=== PATIENT | male | born 1935 | race Caucasian/White ===

== ENCOUNTER 2016-08-25 21:08 | Inpatient (IN) | payer OTHER, MEDICARE ==
[~2016-08-25] VITALS: Ht 165.1 cm; Wt 60.8 kg
[2016-08-25] VITALS (11 sets, daily range): BP systolic 75–105; BP diastolic 51–65; PULSE 106–124; RESP 15–16; TEMP 97.3; O2SAT 100
[~2016-08-25 21:08] MED LIST: ALBU0.08 NEB; ASPI81CH PO; CHOL1CAP6 PO; COQ-100C2 PO; IPRASOL INH; LEVO150T7 PO; LISI2.5T3 PO; MULT-6 PO; PRED20 PO; ROSU5 PO; TAMS0.4C4 PO; THEO PO; THEO200T9 PO; TIOT1AER INH; VENTAER INH
[2016-08-25] MEDS ORDERED: SODIUM CHLORIDE 0.9% FLUSH 5 ML FLUSH IVF PRN (21:15)
[2016-08-25] MEDS ORDERED: SODIUM CHLOR 0.9% 1000 ML INJ 1,000 ML IV ONE (21:15)
[2016-08-25] MEDS ORDERED: methylPREDNISolone SOD SUCC 125 MG/2 ML VIAL IVP ONE (21:15)
--- NOTE | 2016-08-25 21:29 | PD ---
HPI Chief Complaint: shortness of breath, intubated Time Seen by Provider: 21:15 Travel History International Travel<30 days: No Contact w/Intl Traveler<30days: No Traveled to known affect area: No History of Present Illness HPI 89-year-old male with history of COPD, CHF, presents to the ER brought in by EMS , initially had called EMS for shortness of breath, and he was noted to be in significant respiratory distress, saturations in the 87% range, and considering how she was struggling, EMS had intubated him for respiratory distress. 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) Anxiety: Yes (panic attacks) Depression: Yes Heart Rhythm Problems: No Cancer: No Cardiac Catheterization: Yes Cardiovascular Problems: Yes (CHF) High Cholesterol: Yes Congestive Heart Failure: Yes COPD: Yes Diabetes: No Diminished Hearing: Yes (HARD OF HEARING) Endocrine: Yes Genitourinary: No Hypertension: Yes Immune Disorder: No Insomnia: Yes Musculoskeletal: Yes Neurologic: Yes Reproductive: No Respiratory: Yes (COPD) Migraines: Yes (with halos from processed foods (nitrates)) Thyroid Disease: Yes Triglycerides - High: Yes Past Surgical History Abdominal Surgery: No Body Medical Devices: heart stent Cardiac Surgery: Yes (stent) Coronary Artery Bypass Graft: Yes Ear Surgery: No Endocrine Surgery: No Genitourinary Surgery: No Gynecologic Surgery: No Neurologic Surgery: No Oral Surgery: No Thoracic Surgery: No Other Surgery: Yes (VEIN STRIPPING RT ) Social History Alcohol Use: Yes (OCC) Tobacco Use: No (QUIT 1994) Substance Use: No Allergies-Medications (Allergen,Severity, Reaction): Coded Allergies: No Known Allergies (Unverified , 07/29/16) Reported Meds & Prescriptions Reported Meds & Active Scripts Active Prednisone 20 Mg Tab 20 Mg PO BID Albuterol Neb (Albuterol Sulfate) 2.5 Mg/3 Ml Neb 2.5 Mg NEB Q4HR NEB PRN Reported Centrum (Multiple Vitamins W/ Minerals) 1 Tab 1 Tab PO DAILY Vitamin D-3 (Cholecalciferol) 1,000 Unit Cap 1 Tab PO DAILY Aspirin 81 Mg Chew 81 Mg CHEW DAILY Coq-10 (Coenzyme Q10 (Ubidecarenone)) 100 Mg Cap 1 Tab PO DAILY Theophylline ER 12 HR (Theophylline) 450 Mg Tab 400 Mg PO HS Theophylline ER 12 HR (Theophylline) 200 Mg Tab 200 Mg PO AC BREAKFAST Duoneb (Ipratropium-Albuterol Neb) 0.5-2.5 Mg/3 Ml Neb 1 Nebule INH Q6HR NEB Crestor (Rosuvastatin Calcium) 5 Mg Tab 5 Mg PO DAILY Lisinopril 2.5 Mg Tab 2.5 Mg PO DAILY Tamsulosin (Tamsulosin HCl) 0.4 Mg Cap 0.4 Mg PO HS Levothyroxine (Levothyroxine Sodium) 150 Mcg Tab 150 Mcg PO DAILY Stiolto Respimat Inh (Tiotropium-Olodaterol Inh) 2.5-2.5 Mcg/Act Aero 2 Puff INH DAILY Ventolin Hfa 18 GM Inh (Albuterol Sulfate) 90 Mcg/Act Aer 2 Puff INH Q4H PRN Review of Systems Except as stated in HPI: all other systems reviewed are Neg Physical Exam Narrative GENERAL: Well-nourished, well-developed elderly white male patient who is intubated. SKIN: Warm and dry. HEAD: Normocephalic. EYES: No scleral icterus. No injection or drainage. Pupils are pinpoint, round , equal, poorly reactive to light bilaterally. NECK: trachea midline. CARDIOVASCULAR: Fast and regular with no rubs or murmurs gallops. RESPIRATORY: Breath sounds decreased throughout bilaterally, more decreased on the left compared to the right. No wheezes or crackles. GASTROINTESTINAL: Abdomen soft, non-tender, nondistended. MUSCULOSKELETAL: No cyanosis. Trace pitting edema bilaterally. BACK: Nontender without obvious deformity. No CVA tenderness. Data Data Last Documented VS Vital Signs Date Time Temp Pulse Resp B/P Pulse Ox O2 Delivery O2 Flow Rate FiO2 08/25/16 22:29 108 16 90/56 100 45 08/25/16 21:30 97.3 Orders Complete Blood Count With Diff (08/25/16 21:15) Comprehensive Metabolic Panel (08/25/16 21:15) B-Type Natriuretic Peptide (08/25/16 21:15) Act Partial Throm Time (Ptt) (08/25/16 21:15) Prothrombin Time / Inr (Pt) (08/25/16 21:15) Ckmb (Isoenzyme) Profile (08/25/16 21:15) Troponin I (08/25/16 21:15) Arterial Blood Gas (Abg) (08/25/16 21:15) Urinalysis - C+S If Indicated (08/25/16 21:15) Influenzae A/B Antigen (08/25/16 21:15) Blood Culture (08/25/16 21:15) Iv Access Insert/Monitor (08/25/16 21:15) Electrocardiogram (08/25/16 21:15) Ecg Monitoring (08/25/16 21:15) Oximetry (08/25/16 21:15) Oxygen Administration (08/25/16 21:15) Chest, Single Ap (08/25/16 21:15) Urinary Catheter Insert/Apply (08/25/16 21:15) Sodium Chloride 0.9% Flush (Ns Flush) (08/25/16 21:15) Methylprednisolone So Succ Inj (Solumedr (08/25/16 21:15) Albuterol-Ipratropium Neb (Duoneb Neb) (08/25/16 21:15) Sodium Chlor 0.9% 1000 Ml Inj (Ns 1000 M (08/25/16 21:15) Electrocardiogram (08/25/16 19:58) Albuterol-Ipratropium Neb (Duoneb Neb) (08/25/16 21:45) CKMB (08/25/16 21:10) CKMB% (08/25/16 21:10) Restraints Non-Violent KARYN.Q3H (08/25/16 22:38) Admit Order (Ed Use Only) (08/25/16 22:50) Labs Laboratory Tests Test 08/25/16 08/25/16 08/25/16 21:10 21:29 21:45 White Blood Count 7.4 TH/MM3 Red Blood Count 3.62 MIL/MM3 Hemoglobin 11.0 GM/DL Hematocrit 34.1 % Mean Corpuscular Volume 94.2 FL Mean Corpuscular Hemoglobin 30.5 PG Mean Corpuscular Hemoglobin 32.4 % Concent Red Cell Distribution Width 14.5 % Platelet Count 142 TH/MM3 Mean Platelet Volume 7.4 FL Neutrophils (%) (Auto) 50.8 % Lymphocytes (%) (Auto) 33.9 % Monocytes (%) (Auto) 10.8 % Eosinophils (%) (Auto) 4.0 % Basophils (%) (Auto) 0.5 % Neutrophils # (Auto) 3.8 TH/MM3 Lymphocytes # (Auto) 2.5 TH/MM3 Monocytes # (Auto) 0.8 TH/MM3 Eosinophils # (Auto) 0.3 TH/MM3 Basophils # (Auto) 0.0 TH/MM3 CBC Comment DIFF FINAL Differential Comment Prothrombin Time 9.4 SEC Prothromb Time International 0.9 RATIO Ratio Activated Partial 22.4 SEC Thromboplast Time Sodium Level 136 MEQ/L Potassium Level 5.9 MEQ/L Chloride Level 90 MEQ/L Carbon Dioxide Level 41.7 MEQ/L Anion Gap 4 MEQ/L Blood Urea Nitrogen 30 MG/DL Creatinine 0.88 MG/DL Estimat Glomerular Filtration 84 ML/MIN Rate Random Glucose 135 MG/DL Calcium Level 8.0 MG/DL Total Bilirubin 0.3 MG/DL Aspartate Amino Transf 43 U/L (AST/SGOT) Alanine Aminotransferase 32 U/L (ALT/SGPT) Alkaline Phosphatase 72 U/L Total Creatine Kinase 109 U/L Creatine Kinase MB 1.4 NG/ML Troponin I 0.02 NG/ML B-Type Natriuretic Peptide 39 PG/ML Total Protein 6.1 GM/DL Albumin 2.9 GM/DL Blood Gas Puncture Site RT RADIAL Blood Gas Patient Temperature 98.6 Blood Gas HCO3 43 mmol/L Blood Gas Base Excess 15.6 mmol/L Blood Gas Oxygen Saturation 95 % Arterial Blood pH 7.24 Arterial Blood Partial 106 mmHg Pressure CO2 Arterial Blood Partial 363 mmHG Pressure O2 Arterial Blood Oxygen Content 16.1 Vol % Arterial Blood 1.8 % Carboxyhemoglobin Arterial Blood Methemoglobin 2.3 % Blood Gas Hemoglobin 11.4 G/DL Oxygen Delivery Device VENTILATOR Blood Gas Ventilator Setting AC/16/450/PEEP5 Blood Gas Inspired Oxygen 100 % Urine Color YELLOW Urine Turbidity CLEAR Urine pH 6.0 Urine Specific [place] 1.017 Urine Protein 30 mg/dL Urine Glucose (UA) NEG mg/dL Urine Ketones NEG mg/dL Urine Occult Blood NEG Urine Nitrite NEG Urine Bilirubin NEG Urine Urobilinogen LESS THAN 2.0 MG/DL Urine Leukocyte Esterase NEG Urine RBC 3 /hpf Urine WBC 1 /hpf Urine Squamous Epithelial 1 /hpf Cells Urine Hyaline Casts 46 /lpf Microscopic Urinalysis Comment CULT NOT INDICATED MDM Medical Decision Making Medical Screen Exam Complete: Yes Emergency Medical Condition: Yes Medical Record Reviewed: Yes Interpretation(s) EKG shows sinus tachycardia at a rate of [address] elevations or depressions compared to previous EKG on record. Laboratory Tests Test 08/25/16 08/25/16 08/25/16 21:10 21:29 21:45 Red Blood Count 3.62 MIL/MM3 (4.50-5.90) Hemoglobin 11.0 GM/DL (13.0-17.0) Hematocrit 34.1 % (39.0-51.0) Platelet Count 142 TH/MM3 (150-450) Monocytes (%) (Auto) 10.8 % (0.0-8.0) Prothrombin Time 9.4 SEC (9.8-11.6) Activated Partial 22.4 SEC Thromboplast Time (24.3-30.1) Potassium Level 5.9 MEQ/L (3.5-5.1) Chloride Level 90 MEQ/L (98-107) Carbon Dioxide Level 41.7 MEQ/L (21.0-32.0) Anion Gap 4 MEQ/L (5-15) Blood Urea Nitrogen 30 MG/DL (7-18) Estimat Glomerular Filtration 84 ML/MIN (>89) Rate Random Glucose 135 MG/DL (74-106) Calcium Level 8.0 MG/DL (8.5-10.1) Aspartate Amino Transf 43 U/L (15-37) (AST/SGOT) Total Protein 6.1 GM/DL (6.4-8.2) Albumin 2.9 GM/DL (3.4-5.0) Blood Gas HCO3 43 mmol/L (22-26) Blood Gas Base Excess 15.6 mmol/L (-2-2) Arterial Blood pH 7.24 (7.380-7.420) Arterial Blood Partial 106 mmHg Pressure CO2 (38-42) Arterial Blood Partial 363 mmHG Pressure O2 (61-120) Arterial Blood Methemoglobin 2.3 % (0-2) Blood Gas Hemoglobin 11.4 G/DL (12.0-16.0) Urine Protein 30 mg/dL (NEG-TRACE) Last 24 hours Impressions Chest X-Ray 08/25/16 2976 Signed Impressions: Service Date/Time: Thursday, August 25, 2016 21:36 - CONCLUSION: Endotracheal tube in satisfactory position. Emphysema without focal lung disease Murray Dunbar MD Differential Diagnosis Shortness of breath, intubatedCOPD exacerbation versus pneumonia versus CHF Narrative Course Chest x-ray did not show any signs of acute pneumonia or other acute pulmonary processes. ET tube is in place. Lab work otherwise not significantly reveal any signs of acute metabolic issues. At this point, patient was given Solu- Medrol and DuoNeb's in the ER. My plan would be to admit the patient for further evaluation and treatment. Case was discussed with Dr. Moses for admission to ICU. Critical Care Narrative Aggregate critical care time was 35 minutes. Time to perform other separately billable procedures was not included in the critical care time. My time did not include minutes spent treating any other patients simultaneously or on activities that did not directly contribute to the patient's treatment. The services I provided to this patient were to treat and/or prevent clinically significant deterioration that could result in: Worsening risk. Distress, respiratory failure, cardiopulmonary arrest, I provided critical care services requiring my management, as noted below: Chart data review, documentation time, medication orders and management, vital sign assessments/reviewing monitor data, ordering and reviewing lab tests, ordering and interpreting/reviewing x-rays and diagnostic studies, care of the patient and discussion of the patient with the admitting physicians. Diagnosis Primary Impression: COPD with exacerbation Additional Impression: Endotracheally intubated Admitting Information Admitting Physician Requests: it Brooklynn Dee MD Aug 25, 2016 21:29
[2016-08-25 21:38] LABS: BLOOD GAS BASE EXCESS 15.6 mmol/L (-2-2); BLOOD GAS CARBOXYHEMOGLOBIN 1.8 % (0-4); BLOOD GAS HCO3 43 mmol/L (22-26); BLOOD GAS METHEMOGLOBIN 2.3 % (0-2); BLOOD GAS O2 HGB SATURATION 95 % (90-100); BLOOD GAS OXYGEN CONTENT 16.1 Vol % (12.0-20.0); BLOOD GAS PCO2 106 mmHg (38-42); BLOOD GAS PO2 363 mmHG (61-120); BLOOD GAS TOTAL HGB 11.4 G/DL (12.0-16.0); TEMP CORR TO 98.6
[2016-08-25 21:39] LABS: CRITICAL VALUE YES; DRAW SITE RT RADIAL; FIO2 100 %; NUMBER OF ARTERIAL PUNCTURES 2; OXYGEN DEVICE VENTILATOR; STAT YES; ULNAR PULSE PRESENT; VENT SETTINGS AC/16/450/PEEP5
[2016-08-25 21:46] LABS: AUTOMATED NEUTROPHIL # 3.8 TH/MM3 (1.8-7.7); BASOPHIL % 0.5 % (0.0-2.0); EOSINOPHIL # 0.3 TH/MM3 (0-0.4); HEMATOCRIT 34.1 % (39.0-51.0); HEMO FLAGS DIFF FINAL; LYMPH % 33.9 % (9.0-44.0); LYMPHOCYTE # 2.5 TH/MM3 (1.0-4.8); MEAN CELL VOLUME 94.2 FL (80.0-100.0); MEAN CORPUSCULAR HEMOGLOBIN 30.5 PG (27.0-34.0); MEAN CORPUSCULAR HGB CONC 32.4 % (32.0-36.0); MONO % 10.8 % (0.0-8.0); NEUT % 50.8 % (16.0-70.0); PLATELET COUNT 142 TH/MM3 (150-450); RED BLOOD COUNT 3.62 MIL/MM3 (4.50-5.90); RED CELL DISTRIBUTION WIDTH 14.5 % (11.6-17.2); WHITE BLOOD COUNT 7.4 TH/MM3 (4.0-11.0)
[2016-08-25] MEDS: RESP: ALBUTEROL 2.5 MG/IPRATROPIUM 0.5 MG NEB (SCH) INH ×3 (21:46→22:20)
--- NOTE | 2016-08-25 21:55 | RADRPT ---
EXAM DATE/TIME: 08/25/2016 21:36 [facility] COMPARISON: CHEST SINGLE AP, July 29, 2016, 16:00. INDICATIONS : Shortness of breath. Post intubation. MEDICAL HISTORY : Chronic obstructive pulmonary disease. Emphysema. Myocardial infarction. CHF. SURGICAL HISTORY : Cardiac stent. ENCOUNTER: Initial ACUITY: 1 day PAIN SCORE: Non-responsive. LOCATION: Bilateral chest FINDINGS: Endotracheal tube is present in satisfactory position with tip 4-5 cm above the rebecca. The lungs are hyperinflated but focally clear. Cardiac contours are grossly satisfactory for technique and project ion. CONCLUSION: Endotracheal tube in satisfactory position. Emphysema without focal lung disease Murray Dunbar MD on August 25, 2016 at 21:52 Board Certified Radiologist. This report was verified electronically.
[2016-08-25 21:58] LABS: APTT (PATIENT) 22.4 SEC (24.3-30.1); INTERNATIONAL NORMALIZED RATIO 0.9 RATIO; PROTHROMBIN TIME - PATIENT 9.4 SEC (9.8-11.6)
[2016-08-25 22:32] LABS: ALKALINE PHOSPHATASE 72 U/L (45-117); ALT (GPT) 32 U/L (12-78); ANION GAP 4 MEQ/L (5-15); AST (GOT) 43 U/L (15-37); BICARBONATE 41.7 MEQ/L (21.0-32.0); BLOOD UREA NITROGEN 30 MG/DL (7-18); CHLORIDE 90 MEQ/L (98-107); GLOMERULAR FILTRATION RATE 84 ML/MIN (>89); SODIUM (NA) 136 MEQ/L (136-145); TOTAL BILIRUBIN ADULT 0.3 MG/DL (0.2-1.0)
[2016-08-25 22:33] LABS: CREATINE KINASE 109 U/L (39-308); POTASSIUM 5.9 MEQ/L (3.5-5.1)
[2016-08-25 22:45] LABS: CKMB 1.4 NG/ML (0.5-3.6)
[2016-08-25 23:35] LABS: BLOOD GAS BASE EXCESS 14.9 mmol/L (-2-2); BLOOD GAS HCO3 41 mmol/L (22-26); BLOOD GAS O2 HGB SATURATION 95 % (90-100); BLOOD GAS OXYGEN CONTENT 14.7 Vol % (12.0-20.0); BLOOD GAS PCO2 72 mmHg (38-42); BLOOD GAS PO2 188 mmHG (61-120); BLOOD GAS TOTAL HGB 10.7 G/DL (12.0-16.0); TEMP CORR TO 98.6
[2016-08-25 23:36] LABS: CRITICAL VALUE YES; DRAW SITE RT RADIAL; FIO2 45 %; NUMBER OF ARTERIAL PUNCTURES 1; OXYGEN DEVICE VENTILATOR; STAT YES; ULNAR PULSE PRESENT; VENT SETTINGS AC/16/500/PEEP5
[2016-08-26] VITALS (22 sets, daily range): BP systolic 87–124; BP diastolic 51–76; PULSE 86–114; RESP 16–23; TEMP 97.8–100.8; O2SAT 96–100
[2016-08-26] MEDS ORDERED: PROPOFOL 500 MG/50 ML BTL IV ONE
[2016-08-26 00:10] LABS: BLOOD, URINE NEG (NEG); COMMENT (UR) CULT NOT INDICATED; CULTURE IF INDICATED CULT NOT INDICATED; GLUCOSE,URINE NEG (NEG); HYALINE CAST, URINE 46 /lpf (RARE); KETONE, URINE NEG (NEG); NITRITE,URINE NEG (NEG); SQUAMOUS EPITHELIAL CELL URINE 1 /hpf (0-5); URINE COLOR YELLOW (YELLW/STRAW)
[2016-08-26] MEDS ORDERED: NOREPINEPHRINE INJ 4 MG in SODIUM CHLOR 0.9% 250 ML INJ 246 ML IV SCH (00:30)
[2016-08-26] MEDS ORDERED: ONDANSETRON HCL 4 MG/2 ML VIAL IV PRN (00:30)
[2016-08-26] MEDS ORDERED: TERBUTALINE INJ 1 MG/ML AMP SQ PRN (00:30)
[2016-08-26] MEDS ORDERED: MISCELLANEOUS NURSING INFORMATION XX SCH (00:30)
[2016-08-26] MEDS ORDERED: ACETAMINOPHEN 325 MG TAB PO PRN (00:30)
[2016-08-26] MEDS ORDERED: CHLORHEXIDINE GLUCONATE 2 % 1 PACK (2 CLOTHS) TOP PRN (00:30)
[2016-08-26] MEDS ORDERED: MORPHINE SULFATE 4 MG/ML INJ IV PRN (00:30)
[2016-08-26] MEDS ORDERED: SODIUM CHLORIDE 0.9% FLUSH 5 ML FLUSH IV FLUSH PRN (00:30)
[2016-08-26] MEDS ORDERED: RESP: ALBUTEROL 2.5 MG/IPRATROPIUM 0.5 MG NEB (PRN) INH (00:30)
[2016-08-26] MEDS ORDERED: LEVOFLOXACIN 750 MG PREMIX INJ 150 ML IV ONE (00:45)
[2016-08-26] MEDS: PROPOFOL 1000 MG/100 ML INJ 100 ML IV SCH ×2 (01:14→05:45)
[2016-08-26] MEDS: HEPARIN SODIUM - SQ 10,000 UNITS/ML VIAL SQ SCH ×2 (01:56→12:22)
[2016-08-26] MEDS: SODIUM CHLOR 0.9% 1000 ML INJ 1,000 ML IV SCH ×3 (02:08→16:00)
[2016-08-26] MEDS: RESP: ALBUTEROL 2.5 MG/IPRATROPIUM 0.5 MG NEB (SCH) INH ×4 (02:18→21:04)
[2016-08-26 02:32] LABS: BLOOD GAS BASE EXCESS 13.6 mmol/L (-2-2); BLOOD GAS CARBOXYHEMOGLOBIN 0.8 % (0-4); BLOOD GAS HCO3 38 mmol/L (22-26); BLOOD GAS METHEMOGLOBIN 1.5 % (0-2); BLOOD GAS O2 HGB SATURATION 95 % (90-100); BLOOD GAS OXYGEN CONTENT 14.5 Vol % (12.0-20.0); BLOOD GAS PCO2 55 mmHg (38-42); BLOOD GAS PO2 150 mmHG (61-120); BLOOD GAS TOTAL HGB 10.6 G/DL (12.0-16.0); TEMP CORR TO 98.6
[2016-08-26 02:34] LABS: CRITICAL VALUE YES; OXYGEN DEVICE VENTILATOR
[2016-08-26 02:35] LABS: DRAW SITE RT RADIAL; FIO2 35 %; NUMBER OF ARTERIAL PUNCTURES 1; STAT YES; ULNAR PULSE PRESENT; VENT SETTINGS PRVC/AC/
--- NOTE | 2016-08-26 02:46 | HHI.HP ---
[facility] Service Critical Care Medicine Primary Care Physician Miguel Knight MD Admission Diagnosis COPD exacerbation/intubated Diagnosis: Chief Complaint: Can't breathe. Travel History International Travel<30 Days: No Contact w/Intl Traveler <30 Da: No Traveled to Known Affected Are: No History of Present Illness 80 y/o man with longstanding problems with COPD and bronchospasm presents to ED with severe bronchospasm requiring intubation and ventilator support. 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) Anxiety: Yes (panic attacks) Depression: Yes Heart Rhythm Problems: No Cancer: No Cardiac Catheterization: Yes Cardiovascular Problems: Yes (CHF) High Cholesterol: Yes Congestive Heart Failure: Yes COPD: Yes Diabetes: No Diminished Hearing: Yes (HARD OF HEARING) Endocrine: Yes Genitourinary: No Hypertension: Yes Immune Disorder: No Insomnia: Yes Musculoskeletal: Yes Neurologic: Yes Reproductive: No Respiratory: Yes (COPD) Migraines: Yes (with halos from processed foods (nitrates)) Thyroid Disease: Yes Triglycerides - High: Yes Past Surgical History Abdominal Surgery: No Body Medical Devices: heart stent Cardiac Surgery: Yes (stent) Coronary Artery Bypass Graft: Yes Ear Surgery: No Endocrine Surgery: No Genitourinary Surgery: No Gynecologic Surgery: No Neurologic Surgery: No Oral Surgery: No Thoracic Surgery: No Other Surgery: Yes (VEIN STRIPPING RT ) Social History Alcohol Use: Yes (OCC) Tobacco Use: No (QUIT 1994) Substance Use: No Allergies-Medications Allergies-Medications (Allergen,Severity, Reaction): Coded Allergies: No Known Allergies (Unverified , 07/29/16) Reported Meds & Prescriptions Reported Meds & Active Scripts Active Prednisone 20 Mg Tab 20 Mg PO BID Albuterol Neb (Albuterol Sulfate) 2.5 Mg/3 Ml Neb 2.5 Mg NEB Q4HR NEB PRN Reported Centrum (Multiple Vitamins W/ Minerals) 1 Tab 1 Tab PO DAILY Vitamin D-3 (Cholecalciferol) 1,000 Unit Cap 1 Tab PO DAILY Aspirin 81 Mg Chew 81 Mg CHEW DAILY Coq-10 (Coenzyme Q10 (Ubidecarenone)) 100 Mg Cap 1 Tab PO DAILY Theophylline ER 12 HR (Theophylline) 450 Mg Tab 400 Mg PO HS Theophylline ER 12 HR (Theophylline) 200 Mg Tab 200 Mg PO AC BREAKFAST Duoneb (Ipratropium-Albuterol Neb) 0.5-2.5 Mg/3 Ml Neb 1 Nebule INH Q6HR NEB Crestor (Rosuvastatin Calcium) 5 Mg Tab 5 Mg PO DAILY Lisinopril 2.5 Mg Tab 2.5 Mg PO DAILY Tamsulosin (Tamsulosin HCl) 0.4 Mg Cap 0.4 Mg PO HS Levothyroxine (Levothyroxine Sodium) 150 Mcg Tab 150 Mcg PO DAILY Stiolto Respimat Inh (Tiotropium-Olodaterol Inh) 2.5-2.5 Mcg/Act Aero 2 Puff INH DAILY Ventolin Hfa 18 GM Inh (Albuterol Sulfate) 90 Mcg/Act Aer 2 Puff INH Q4H PRN Physical Exam Vital Signs Vital Signs Date Time Temp Pulse Resp B/P Pulse Ox O2 Delivery O2 Flow Rate FiO2 08/26/16 02:05 112 16 103/59 98 Ventilator 35 08/26/16 01:10 112 98/57 08/26/16 00:38 98 35 08/26/16 00:10 111 96/56 08/26/16 00:04 112 16 88/52 98 08/26/16 00:01 114 16 100/51 98 35 08/25/16 23:40 100 35 08/25/16 23:18 106 15 105/61 100 Ventilator 45 08/25/16 22:29 108 16 90/56 100 45 08/25/16 22:23 100 45 08/25/16 21:50 100 60 08/25/16 21:48 110 16 88/65 100 60 08/25/16 21:30 97.3 08/25/16 21:16 81/52 08/25/16 21:15 124 16 75/51 08/25/16 21:10 100 100 08/25/16 21:08 124 16 75/51 Laboratory Laboratory Tests Test 08/25/16 08/25/16 08/25/16 08/25/16 21:10 21:29 21:45 23:23 White Blood Count 7.4 Red Blood Count 3.62 Hemoglobin 11.0 Hematocrit 34.1 Mean Corpuscular Volume 94.2 Mean Corpuscular Hemoglobin 30.5 Mean Corpuscular Hemoglobin 32.4 Concent Red Cell Distribution Width 14.5 Platelet Count 142 Mean Platelet Volume 7.4 Neutrophils (%) (Auto) 50.8 Lymphocytes (%) (Auto) 33.9 Monocytes (%) (Auto) 10.8 Eosinophils (%) (Auto) 4.0 Basophils (%) (Auto) 0.5 Neutrophils # (Auto) 3.8 Lymphocytes # (Auto) 2.5 Monocytes # (Auto) 0.8 Eosinophils # (Auto) 0.3 Basophils # (Auto) 0.0 CBC Comment DIFF FINAL Differential Comment Prothrombin Time 9.4 Prothromb Time International 0.9 Ratio Activated Partial 22.4 Thromboplast Time Sodium Level 136 Potassium Level 5.9 Chloride Level 90 Carbon Dioxide Level 41.7 Anion Gap 4 Blood Urea Nitrogen 30 Creatinine 0.88 Estimat Glomerular Filtration 84 Rate Random Glucose 135 Calcium Level 8.0 Total Bilirubin 0.3 Aspartate Amino Transf 43 (AST/SGOT) Alanine Aminotransferase 32 (ALT/SGPT) Alkaline Phosphatase 72 Total Creatine Kinase 109 Creatine Kinase MB 1.4 Troponin I 0.02 B-Type Natriuretic Peptide 39 Total Protein 6.1 Albumin 2.9 Blood Gas Puncture Site RT RADIAL RT RADIAL Blood Gas Patient Temperature 98.6 98.6 Blood Gas HCO3 43 41 Blood Gas Base Excess 15.6 14.9 Blood Gas Oxygen Saturation 95 95 Arterial Blood pH 7.24 7.37 Arterial Blood Partial 106 72 Pressure CO2 Arterial Blood Partial 363 188 Pressure O2 Arterial Blood Oxygen Content 16.1 14.7 Arterial Blood 1.8 2.0 Carboxyhemoglobin Arterial Blood Methemoglobin 2.3 2.0 Blood Gas Hemoglobin 11.4 10.7 Oxygen Delivery Device VENTILATOR VENTILATOR Blood Gas Ventilator Setting //450/PEEP5 //500/PEEP5 Blood Gas Inspired Oxygen 100 45 Urine Color YELLOW Urine Turbidity CLEAR Urine pH 6.0 Urine Specific [place] 1.017 Urine Protein 30 Urine Glucose (UA) NEG Urine Ketones NEG Urine Occult Blood NEG Urine Nitrite NEG Urine Bilirubin NEG Urine Urobilinogen LESS THAN 2.0 Urine Leukocyte Esterase NEG Urine RBC 3 Urine WBC 1 Urine Squamous Epithelial 1 Cells Urine Hyaline Casts 46 Microscopic Urinalysis Comment CULT NOT INDICATED Test 08/26/16 02:23 Blood Gas Puncture Site RT RADIAL Blood Gas Patient Temperature 98.6 Blood Gas HCO3 38 Blood Gas Base Excess 13.6 Blood Gas Oxygen Saturation 95 Arterial Blood pH 7.46 Arterial Blood Partial 55 Pressure CO2 Arterial Blood Partial 150 Pressure O2 Arterial Blood Oxygen Content 14.5 Arterial Blood 0.8 Carboxyhemoglobin Arterial Blood Methemoglobin 1.5 Blood Gas Hemoglobin 10.6 Oxygen Delivery Device VENTILATOR Blood Gas Ventilator Setting PRVC/AC/ Blood Gas Inspired Oxygen 35 Date/Time Procedure Status Source Growth 08/25/16 21:20 Aerobic Blood Culture Received Blood Peripheral Pending 08/25/16 21:20 Anaerobic Blood Culture Received Blood Peripheral Pending Result Diagram: 08/25/16210908/25/162109 Assessment and Plan Problem List: (1) Acute respiratory failure with hypoxia and hypercapnia ICD Code: J96.01 Status: Acute (2) COPD with exacerbation ICD Code: J44.1 Status: Acute Assessment and Plan Assessment: 1. COPD exacerbation with hypoxemia. 2. Chronic acute on chronic combined respiratory failure. Plan: 1. PRVC vent mode. 2. Levaquin coverage for bronchitis. 3. Propofol sedation. 4. Heparin DVT px. 5. Protonix. 6. Bronchodilators. 7. Maint IV NS. 8. Sputum culture. Overall impression: Critically ill man required intubation and mechanical ventilation for COPD exacerbation. Should improve on steroids, dilators and abx. Unable to wean ventilator now. Critical Care 42 mins Junior Calloway MD Aug 26, 2016 02:46
[2016-08-26] MEDS ORDERED: THEOPHYLLINE ER 12 HR 200 MG TABCR PO SCH ×2 (03:00→08:00)
[2016-08-26] MEDS: methylPREDNISolone SOD SUCC 125 MG/2 ML VIAL IV PUSH SCH ×4 (03:57→20:47)
[2016-08-26] MEDS: CHLORHEXIDINE GLUCONATE 2 % 1 PACK (2 CLOTHS) TOP SCH (04:39)
[2016-08-26 05:54] LABS: AUTOMATED NEUTROPHIL # 6.8 TH/MM3 (1.8-7.7); BASOPHIL % 0.1 % (0.0-2.0); HEMATOCRIT 31.5 % (39.0-51.0); HEMO FLAGS DIFF FINAL; LYMPH % 4.6 % (9.0-44.0); LYMPHOCYTE # 0.3 TH/MM3 (1.0-4.8); MEAN CELL VOLUME 92.9 FL (80.0-100.0); MEAN CORPUSCULAR HEMOGLOBIN 30.5 PG (27.0-34.0); MEAN CORPUSCULAR HGB CONC 32.8 % (32.0-36.0); MONO % 4.5 % (0.0-8.0); NEUT % 90.8 % (16.0-70.0); PLATELET COUNT 125 TH/MM3 (150-450); RED BLOOD COUNT 3.39 MIL/MM3 (4.50-5.90); RED CELL DISTRIBUTION WIDTH 14.4 % (11.6-17.2); WHITE BLOOD COUNT 7.5 TH/MM3 (4.0-11.0)
[2016-08-26] MEDS: LEVOTHYROXINE SODIUM 150 MCG TAB PO SCH (06:05)
[2016-08-26 06:13] LABS: BICARBONATE 38.9 MEQ/L (21.0-32.0); POTASSIUM 4.9 MEQ/L (3.5-5.1)
[2016-08-26] MEDS: THEOPHYLLINE ER 12 HR 200 MG TABCR PO SCH ×2 (08:00→20:47)
[2016-08-26] MEDS ORDERED: NON-FORMULARY DRUG (Coenzyme Q10 (Ubidecarenone) (Coq-10) 1 TAB) PO SCH (09:00)
[2016-08-26] MEDS: LISINOPRIL 5 MG TAB PO SCH (09:00)
[2016-08-26] MEDS: PANTOPRAZOLE SODIUM 40 MG VIAL IV SCH (09:19)
[2016-08-26] MEDS: ASPIRIN 81 MG CHEW TAB CHEW SCH (09:19)
[2016-08-26] MEDS: ATORVASTATIN 10 MG TAB PO SCH (09:19)
[2016-08-26] MEDS: CHLORHEXIDINE 0.12% (ORAL KIT) 15 ML CUP MT SCH ×2 (09:20→19:44)
[2016-08-26] MEDS: SODIUM CHLORIDE 0.9% FLUSH 5 ML FLUSH IV FLUSH SCH ×2 (09:21→20:47)
[2016-08-26 15:05] LABS: BLOOD GAS BASE EXCESS 10.9 mmol/L (-2-2); BLOOD GAS CARBOXYHEMOGLOBIN 1.2 % (0-4); BLOOD GAS HCO3 35 mmol/L (22-26); BLOOD GAS METHEMOGLOBIN 1.1 % (0-2); BLOOD GAS O2 HGB SATURATION 96 % (90-100); BLOOD GAS OXYGEN CONTENT 13.6 Vol % (12.0-20.0); BLOOD GAS PCO2 47 mmHg (38-42); BLOOD GAS PO2 121 mmHg (61-120); BLOOD GAS TOTAL HGB 9.9 G/DL (12.0-16.0); CRITICAL VALUE NO; OXYGEN DEVICE VENTILATOR; TEMP CORR TO 98.6
[2016-08-26 15:06] LABS: DRAW SITE RT RADIAL; FIO2 35 %; NUMBER OF ARTERIAL PUNCTURES 1; STAT YES; ULNAR PULSE PRESENT; VENT SETTINGS 500/16/+5/0.9
--- NOTE | 2016-08-26 19:30 | EKG ---
Date Performed: 08/25/2016 Time Performed: 21:13:45 PTAGE: 80 years EKG: SINUS TACHYCARDIA WITH SHORT SD INTERVAL PREVIOUS TRACING : 08/25/2016 19.58 DOCTOR: Carlos Arias Interpretating Date/Time 08/26/2016 19:27:15
--- NOTE | 2016-08-26 19:31 | EKG ---
Date Performed: 08/25/2016 Time Performed: 19:58:56 PTAGE: 80 years EKG: SINUS TACHYCARDIA MINIMAL ST DEPRESSION ABNORMAL RHYTHM ECG INTERPRETATION BASED ON A DEFAU LT AGE OF 41 YEARS PREVIOUS TRACING : 07/29/2016 15.18 DOCTOR: Carlos Arias Interpretating Date/Time 08/26/2016 19:29:33
[2016-08-26] MEDS: TAMSULOSIN HCL 0.4 MG CAP PO SCH (20:47)
[2016-08-27] VITALS (13 sets, daily range): BP systolic 101–124; BP diastolic 57–69; PULSE 93–115; RESP 22–30; TEMP 98–98.8; O2SAT 93–100
[2016-08-27] MEDS: SODIUM CHLOR 0.9% 1000 ML INJ 1,000 ML IV SCH ×2 (00:22→07:38)
[2016-08-27] MEDS: HEPARIN SODIUM - SQ 10,000 UNITS/ML VIAL SQ SCH ×2 (00:22→14:54)
[2016-08-27] MEDS: methylPREDNISolone SOD SUCC 125 MG/2 ML VIAL IV PUSH SCH ×3 (02:40→14:55)
[2016-08-27] MEDS: RESP: ALBUTEROL 2.5 MG/IPRATROPIUM 0.5 MG NEB (SCH) INH ×4 (03:29→21:00)
[2016-08-27] MEDS: CHLORHEXIDINE GLUCONATE 2 % 1 PACK (2 CLOTHS) TOP SCH (04:03)
[2016-08-27 04:56] LABS: AUTOMATED NEUTROPHIL # 8.2 TH/MM3 (1.8-7.7); BASOPHIL % 0.1 % (0.0-2.0); HEMATOCRIT 31.1 % (39.0-51.0); HEMO FLAGS DIFF FINAL; LYMPH % 6.1 % (9.0-44.0); LYMPHOCYTE # 0.6 TH/MM3 (1.0-4.8); MEAN CELL VOLUME 93.5 FL (80.0-100.0); MEAN CORPUSCULAR HEMOGLOBIN 30.4 PG (27.0-34.0); MEAN CORPUSCULAR HGB CONC 32.6 % (32.0-36.0); MONO % 4.2 % (0.0-8.0); NEUT % 89.6 % (16.0-70.0); PLATELET COUNT 123 TH/MM3 (150-450); RED BLOOD COUNT 3.33 MIL/MM3 (4.50-5.90); RED CELL DISTRIBUTION WIDTH 14.8 % (11.6-17.2); WHITE BLOOD COUNT 9.1 TH/MM3 (4.0-11.0)
[2016-08-27 05:28] LABS: ALKALINE PHOSPHATASE 59 U/L (45-117); ALT (GPT) 37 U/L (12-78); ANION GAP 8 MEQ/L (5-15); AST (GOT) 24 U/L (15-37); BLOOD UREA NITROGEN 26 MG/DL (7-18); CHLORIDE 100 MEQ/L (98-107); GLOMERULAR FILTRATION RATE 104 ML/MIN (>89); MAGNESIUM 1.7 MG/DL (1.5-2.5); SODIUM (NA) 142 MEQ/L (136-145); TOTAL BILIRUBIN ADULT 0.5 MG/DL (0.2-1.0)
[2016-08-27] MEDS: LEVOTHYROXINE SODIUM 150 MCG TAB PO SCH (05:34)
--- NOTE | 2016-08-27 06:47 | RADRPT ---
EXAM DATE/TIME: 08/27/2016 05:41 [facility] COMPARISON: CHEST SINGLE AP, August 25, 2016, 21:36. INDICATIONS : Respiratory distress. MEDICAL HISTORY : Congestive heart failure. Myocardial infarction. Chronic obstructive pulmonary disease. Emphysem a. SURGICAL HISTORY : Cardiac stent. ENCOUNTER: Subsequent ACUITY: 3 days PAIN SCORE: Non-responsive. LOCATION: Bilateral chest FINDINGS: Minimal streaky opacity at the right lung base and mild interstitial prominence elsewhere. Cardiomedi astinal contours are satisfactory for technique and projection. CONCLUSION: Minimal right base parenchymal opacity. Murray Dunbar MD on August 27, 2016 at 6:45 Board Certified Radiologist. This report was verified electronically.
[2016-08-27] MEDS: CHLORHEXIDINE 0.12% (ORAL KIT) 15 ML CUP MT SCH ×2 (07:38→20:00)
[2016-08-27] MEDS: PANTOPRAZOLE SODIUM 40 MG VIAL IV SCH (07:38)
[2016-08-27] MEDS: SODIUM CHLORIDE 0.9% FLUSH 5 ML FLUSH IV FLUSH SCH ×2 (07:39→20:39)
[2016-08-27] MEDS: ATORVASTATIN 10 MG TAB PO SCH (07:44)
[2016-08-27] MEDS: THEOPHYLLINE ER 12 HR 200 MG TABCR PO SCH ×3 (07:44→20:50)
[2016-08-27] MEDS: ASPIRIN 81 MG CHEW TAB CHEW SCH (07:44)
[2016-08-27] MEDS: LISINOPRIL 5 MG TAB PO SCH (07:44)
[2016-08-27] MEDS ORDERED: TIOTROPIUM OLODATEROL INH SCH (09:00)
[2016-08-27] MEDS: CHOLECALCIFEROL (VIT D3) 1000 UNIT TAB PO SCH (09:15)
[2016-08-27] MEDS ORDERED: AZITHROMYCIN 250 MG TAB PO ONE (16:00)
[2016-08-27 16:03] LABS: HEMOGLOBIN A1a 1.7 %; HEMOGLOBIN Ao 83.8 %
--- NOTE | 2016-08-27 16:05 | HHI.PR ---
Subjective Remarks Follow-up COPD. Improving shortness of breath. Dry cough. Uses 2 L nasal cannula at home. 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 Objective Vitals Vital Signs Date Time Temp Pulse Resp B/P Pulse Ox O2 Delivery O2 Flow Rate FiO2 08/27/16 14:00 108 08/27/16 12:00 115 08/27/16 12:00 98.8 115 24 117/65 96 08/27/16 10:00 109 08/27/16 09:50 97 Nasal Cannula 2.00 08/27/16 08:00 98.1 93 22 110/62 98 08/27/16 08:00 93 08/27/16 07:00 96 Nasal Cannula 2.00 08/27/16 06:00 95 08/27/16 04:00 98.2 98 22 101/57 100 08/27/16 04:00 98 08/27/16 02:00 98 08/27/16 00:00 98.0 98 26 109/59 100 08/27/16 00:00 98 08/26/16 22:00 99 08/26/16 21:06 98 Nasal Cannula 3.00 08/26/16 20:00 96 08/26/16 20:00 97.8 100 22 108/68 98 08/26/16 19:00 96 Mechanical Ventilator 3.00 Nasal Cannula 08/26/16 18:00 103 08/26/16 16:00 95 08/26/16 16:00 98.3 95 23 114/60 99 I/O 08/26/16 08/26/16 08/26/16 08/27/16 08/27/16 08/27/16 07:00 15:00 23:00 07:00 15:00 23:00 Intake Total 501 ml 1022 ml 674 ml 792 ml 1589 ml Output Total 650 ml 750 ml 1400 ml 500 ml 400 ml Balance -149 ml 272 ml -726 ml 292 ml 1189 ml Intake Oral 0 ml 0 ml 0 ml 720 ml IV Total 501 ml 992 ml 674 ml 792 ml 869 ml Other 30 ml Output Urine Total 650 ml 700 ml 1400 ml 500 ml 400 ml Gastric Drainage Total 50 ml # Bowel Movements 0 0 0 Result Diagram: 08/27/1634708/27/16347 Imaging Last Impressions Chest X-Ray 08/27/16 0600 Signed Impressions: Service Date/Time: Saturday, August 27, 2016 05:41 - CONCLUSION: Minimal right base parenchymal opacity. Murray Dunbar MD Objective Remarks GENERAL: This is a well-nourished, well-developed patient, in no apparent distress. CARDIOVASCULAR: Regular rate and rhythm without murmurs, gallops, or rubs. RESPIRATORY: Clear to auscultation. Breath sounds equal bilaterally. No wheezes , rales, or rhonchi. GASTROINTESTINAL: Abdomen soft, non-tender, nondistended. Normal active bowel sounds MUSCULOSKELETAL: Extremities without clubbing, cyanosis but with bilateral lower extremity edema. NEURO: Alert & Oriented x4 to person, place, time, situation. Moves all ext x4 Procedures none A/P Assessment and Plan 1. COPD exacerbation with hypoxemia. Improving switched to by mouth prednisone , continue oxygen, nebulizations and increase activity. 2. Opacity right lung. Start Z-Vlad 3. Acute on chronic combined respiratory failure status post extubation. Tolerating nasal cannula 4. Chronic medical conditions of congestive heart failure hypertension, hyperlipidemia and hypothyroidism stable continue outpatient medications as appropriate DVT prophylaxis with SCD and subcutaneous heparin Discharge Planning Stable may transfer to floor Magdi East MD Aug 27, 2016 16:05
[2016-08-27] MEDS: predniSONE 20 MG TAB PO SCH (17:23)
--- NOTE | 2016-08-27 20:07 | MB ---
cc: KAISER WOODARD MD DATE OF CONSULTATION 08/27/[address] East REASON FOR CONSULTATION Respiratory failure and COPD exacerbation. HISTORY OF PRESENT ILLNESS Mr. Haywood is a pleasant 80-year-old male who is known to me from the office. He has a longstanding history of chronic obstructive pulmonary disease, uses oxygen at home. The patient had sudden onset of shortness of breath and COPD exacerbation. EVAC was called. He was hypoxic and he was intubated. He was admitted in the intensive care unit and he improved significantly and has been extubated, currently he is on nasal cannula. Mild shortness of breath even at rest, mild congestion. No fever or chills. No night sweats. His WBC count is 9.1m, hemoglobin 10.1, hematocrit 31.1, MCV 93, platelet count 123. Sodium 142, potassium 4.0 chloride 100, CO2 34. BUN 26, creatinine 0.73. Blood gas on ventilator - pH 7.49, pCO2 47, pO2 121 on 35% assist control. His chest x-ray shows minimal right basilar rales and parenchymal opacity. PAST MEDICAL HISTORY 1. History of COPD, 2. Congestive heart failure. 3. Hypertension. MEDICATIONS Currently taking 1. Zithromax 50 mg a day 2. Prednisone mg a day 3. Flomax 0.4 mg 5. Aspirin 81 mg daily. 6. Lisinopril 2.5 mg daily 7. Lipitor 10 mg a day. 8. Theophylline 200 mg at nighttime, 9. Albuterol Atrovent nebulizer treatment. 10. Subcu heparin 5000 q12 hours. ALLERGIES NO KNOWN DRUG ALLERGIES. SOCIAL HISTORY He is . He worked in [employer] [place]. Has history of smoking which he quit. FAMILY HISTORY He has adopted children and has own children. REVIEW OF SYSTEMS He walks only short distance, gets short of breath. Weight is stable, uses oxygen all the time. No headache or dizziness, no seizure, stroke or epilepsy. PHYSICAL EXAMINATION GENERAL: Frail elderly male mildly short of breath. VITAL SIGNS: Blood pressure 122/63, heart rate 100, respirations 26, temperature 98.3. HEENT: Unremarkable. NECK: Supple. JVP not raised. CHEST: Equal bilaterally. He has hyperresonant chest, decreased chest excursion . CARDIOVASCULAR: S1, S2 normal. ABDOMEN: Benign. EXTREMITIES: No edema. IMPRESSION 1. Respiratory failure status post extubation. 2. COPD exacerbation 3. Anxiety 4. Hypertension. PLAN We will give him aerosol treatment with albuterol and Atrovent. Zithromax 50 mg, prednisone 40 mg. Heparin subcu. I will also check __Oxalate level. Further treatment will depend on the course in the hospital. Thank you, Dr. East, for this consultation. MD YURIDIA King/SA /6:45 PM /7:35 PM EMANI
[2016-08-27] MEDS: TAMSULOSIN HCL 0.4 MG CAP PO SCH (20:39)
[2016-08-28] VITALS: BP 89/54; PULSE 98; RESP 21; TEMP 98.6; O2SAT 95
[2016-08-28] MEDS: HEPARIN SODIUM - SQ 10,000 UNITS/ML VIAL SQ SCH (01:21)
[2016-08-28] MEDS: CHLORHEXIDINE GLUCONATE 2 % 1 PACK (2 CLOTHS) TOP SCH (03:03)
[2016-08-28] MEDS: RESP: ALBUTEROL 2.5 MG/IPRATROPIUM 0.5 MG NEB (SCH) INH ×2 (03:40→11:32)
[2016-08-28 04:00] VITALS: BP 96/50; PULSE 84; RESP 35; TEMP 98.5; O2SAT 98
[2016-08-28] MEDS: LEVOTHYROXINE SODIUM 150 MCG TAB PO SCH (05:42)
[2016-08-28] MEDS: SODIUM CHLORIDE 0.9% FLUSH 5 ML FLUSH IV FLUSH SCH (07:21)
[2016-08-28] MEDS: CHLORHEXIDINE 0.12% (ORAL KIT) 15 ML CUP MT SCH (07:22)
[2016-08-28 07:35] VITALS: O2SAT 100
[2016-08-28] MEDS: LISINOPRIL 5 MG TAB PO SCH (07:55)
[2016-08-28] MEDS: CHOLECALCIFEROL (VIT D3) 1000 UNIT TAB PO SCH (07:56)
[2016-08-28] MEDS: predniSONE 20 MG TAB PO SCH (07:56)
[2016-08-28] MEDS: ATORVASTATIN 10 MG TAB PO SCH (07:56)
[2016-08-28] MEDS: ASPIRIN 81 MG CHEW TAB CHEW SCH (07:57)
[2016-08-28 08:00] VITALS: BP 106/62; PULSE 102; RESP 24; TEMP 98.1; O2SAT 99
[2016-08-28] MEDS ORDERED: AZITHROMYCIN 250 MG TAB PO SCH (09:00)
[2016-08-28] MEDS: THEOPHYLLINE ER 12 HR 200 MG TABCR PO SCH (09:35)
[2016-08-28 12:00] VITALS: BP 97/53; PULSE 87; RESP 22; TEMP 98.1; O2SAT 99
--- NOTE | 2016-08-28 12:19 | HHI.PR ---
Subjective Remarks Follow-up COPD. He is improving on 2 L nasal cannula. States he has home health care PT and visiting nurse. Ambulates with a walker. Discussed with physical therapy will see patient prior to discharge today. Discussed with RN, patient had brief episodes of SVT overnight patient did not have any symptoms at the time. Objective Vitals Vital Signs Date Time Temp Pulse Resp B/P Pulse Ox O2 Delivery O2 Flow Rate FiO2 08/28/16 12:00 98.1 87 22 97/53 99 08/28/16 08:00 98.1 102 24 106/62 99 08/28/16 07:35 100 Nasal Cannula 2.00 08/28/16 07:00 100 Nasal Cannula 2.00 08/28/16 04:00 98.5 84 35 96/50 98 08/28/16 00:00 98.6 98 21 89/54 95 08/27/16 21:00 93 Nasal Cannula 3.00 08/27/16 20:00 98.5 110 30 124/69 95 08/27/16 20:00 110 08/27/16 19:00 98 Nasal Cannula 2.00 08/27/16 18:00 107 08/27/16 16:00 98.3 100 28 122/63 100 08/27/16 16:00 100 08/27/16 14:00 108 I/O 08/27/16 08/27/16 08/27/16 08/28/16 08/28/16 08/28/16 06:59 14:59 22:59 06:59 14:59 22:59 Intake Total 792 ml 1589 ml 480 ml Output Total 500 ml 400 ml 400 ml 750 ml Balance 292 ml 1189 ml 80 ml -750 ml Intake Oral 0 ml 720 ml 480 ml IV Total 792 ml 869 ml 0 ml Output Urine Total 500 ml 400 ml 400 ml 750 ml # Bowel Movements 0 1 0 Result Diagram: 08/27/1634708/27/16347 Objective Remarks GENERAL: This is a well-nourished, well-developed patient, in no apparent distress. CARDIOVASCULAR: Regular rate and rhythm without murmurs, gallops, or rubs. RESPIRATORY: Clear to auscultation. Breath sounds equal bilaterally. No wheezes , rales, or rhonchi. GASTROINTESTINAL: Abdomen soft, non-tender, nondistended. Normal active bowel sounds MUSCULOSKELETAL: Extremities without clubbing, cyanosis but with bilateral lower extremity edema. NEURO: Alert & Oriented x4 to person, place, time, situation. Moves all ext x4 Procedures none A/P Problem List: (1) COPD (chronic obstructive pulmonary disease) with emphysema ICD Code: J43.9 Status: Acute (2) Acute respiratory failure with hypoxia and hypercapnia ICD Code: J96.01 Status: Acute Assessment and Plan 1. COPD exacerbation with hypoxemia. Improving switched to by mouth prednisone , continue oxygen, nebulizations and increase activity. 2. Opacity right lung. Continue Z-Vlad. Follow up outpatient with pulmonary M.D. 3. Acute on chronic combined respiratory failure status post extubation. Resolved. Tolerating nasal cannula 4. Transient SVT secondary to above and meds. Symptomatic. Continue telemetry monitoring Chronic medical conditions of congestive heart failure hypertension, hyperlipidemia and hypothyroidism stable continue outpatient medications as appropriate DVT prophylaxis with SCD and subcutaneous heparin Discharge Planning Stable for discharge Magdi East MD Aug 28, 2016 12:19
[2016-08-28] MEDS ORDERED: PRED20 PO (12:21)
[2016-08-28] MEDS ORDERED: ZITH250T PO (12:21)
--- NOTE | 2016-08-28 12:22 | HHI.DCPOC ---
Discharge Care Plan Diagnosis: (1) Acute respiratory failure with hypoxia and hypercapnia (2) COPD with exacerbation Your Health Problems Are: Difficulty with ADL Exercise Tolerance Goals to Promote Your Health * To prevent worsening of your condition and complications * To maintain your health at the optimal level Directions to Meet Your Goals Take your medications as prescribed Follow your dietary instruction Follow activity as directed Keep your appointments as scheduled Take your immunizations and boosters as scheduled If your symptoms worsen call your PCP, if no PCP go to Urgent Care Center or Emergency Room Smoking is Dangerous to Your Health. Avoid second hand smoke Call the 24-hour hour crisis hotline for domestic abuse at Magdi East MD Aug 28, 2016 12:22
--- NOTE | 2016-08-28 12:22 | HHI.FF ---
Face to Face Verification Diagnosis: (1) COPD (chronic obstructive pulmonary disease) with emphysema (2) Acute respiratory failure with hypoxia and hypercapnia Physical Therapy Order: Evaluate and Treat, Improve ambulation, Strength and gait training Home Health Nursing Order: Signs/symptoms of disease process Oxygen administration education Medication education-adverse effect Nursing assessment with vital signs I have seen patient Miguel Haywood on 08/28/16. My clinical findings support the need for the requested home health care services because: Patient has SOB I certify that my clinical findings support that this patient is homebound because: Hx COPD- exertion dyspnea/weakness Magdi East MD Aug 28, 2016 12:22
--- NOTE | 2016-08-28 12:35 | HHI.DS ---
Discharge Summary Admission Date Aug 25, 2016 at 22:52 Discharge Date: Aug 28, 2016 Admitting Diagnosis COPD exacerbation/intubated (1) COPD (chronic obstructive pulmonary disease) with emphysema ICD Code: J43.9 Diagnosis: Principal (2) Acute respiratory failure with hypoxia and hypercapnia ICD Code: J96.01 Diagnosis: Principal Procedures none Brief History - From Admission 80 y/o man with longstanding problems with COPD and bronchospasm presents to ED with severe bronchospasm requiring intubation and ventilator support. CBC/BMP: 08/27/16 0348 08/27/16 0348 Significant Findings Laboratory Tests Test 08/25/16 08/25/16 08/25/16 08/25/16 21:10 21:29 21:45 23:23 Red Blood Count 3.62 MIL/MM3 (4.50-5.90) Hemoglobin 11.0 GM/DL (13.0-17.0) Hematocrit 34.1 % (39.0-51.0) Platelet Count 142 TH/MM3 (150-450) Monocytes (%) (Auto) 10.8 % (0.0-8.0) Prothrombin Time 9.4 SEC (9.8-11.6) Activated Partial 22.4 SEC Thromboplast Time (24.3-30.1) Potassium Level 5.9 MEQ/L (3.5-5.1) Chloride Level 90 MEQ/L (98-107) Carbon Dioxide Level 41.7 MEQ/L (21.0-32.0) Anion Gap 4 MEQ/L (5-15) Blood Urea Nitrogen 30 MG/DL (7-18) Estimat Glomerular Filtration 84 ML/MIN (>89) Rate Random Glucose 135 MG/DL (74-106) Calcium Level 8.0 MG/DL (8.5-10.1) Aspartate Amino Transf 43 U/L (15-37) (AST/SGOT) Total Protein 6.1 GM/DL (6.4-8.2) Albumin 2.9 GM/DL (3.4-5.0) Blood Gas HCO3 43 mmol/L 41 mmol/L (22-26) (22-26) Blood Gas Base Excess 15.6 mmol/L 14.9 mmol/L (-2-2) (-2-2) Arterial Blood pH 7.24 7.37 (7.380-7.420) (7.380-7.420) Arterial Blood Partial 106 mmHg 72 mmHg (38-42) Pressure CO2 (38-42) Arterial Blood Partial 363 mmHG 188 mmHG Pressure O2 (61-120) (61-120) Arterial Blood Methemoglobin 2.3 % (0-2) Blood Gas Hemoglobin 11.4 G/DL 10.7 G/DL (12.0-16.0) (12.0-16.0) Urine Protein 30 mg/dL (NEG-TRACE) Test 08/26/16 08/26/16 08/26/16 08/27/16 02:23 05:05 14:52 03:48 Blood Gas HCO3 38 mmol/L 35 mmol/L (22-26) (22-26) Blood Gas Base Excess 13.6 mmol/L 10.9 mmol/L (-2-2) (-2-2) Arterial Blood pH 7.46 7.49 (7.380-7.420) (7.380-7.420) Arterial Blood Partial 55 mmHg (38-42) 47 mmHg (38-42) Pressure CO2 Arterial Blood Partial 150 mmHG 121 mmHg Pressure O2 (61-120) (61-120) Blood Gas Hemoglobin 10.6 G/DL 9.9 G/DL (12.0-16.0) (12.0-16.0) Red Blood Count 3.39 MIL/MM3 3.33 MIL/MM3 (4.50-5.90) (4.50-5.90) Hemoglobin 10.3 GM/DL 10.1 GM/DL (13.0-17.0) (13.0-17.0) Hematocrit 31.5 % 31.1 % (39.0-51.0) (39.0-51.0) Platelet Count 125 TH/MM3 123 TH/MM3 (150-450) (150-450) Neutrophils (%) (Auto) 90.8 % 89.6 % (16.0-70.0) (16.0-70.0) Lymphocytes (%) (Auto) 4.6 % 6.1 % (9.0-44.0) (9.0-44.0) Lymphocytes # (Auto) 0.3 TH/MM3 0.6 TH/MM3 (1.0-4.8) (1.0-4.8) Chloride Level 91 MEQ/L (98-107) Carbon Dioxide Level 38.9 MEQ/L 34.0 MEQ/L (21.0-32.0) (21.0-32.0) Blood Urea Nitrogen 31 MG/DL (7-18) 26 MG/DL (7-18) Estimat Glomerular Filtration 69 ML/MIN (>89) Rate Random Glucose 179 MG/DL 115 MG/DL (74-106) (74-106) Neutrophils # (Auto) 8.2 TH/MM3 (1.8-7.7) Calcium Level 8.3 MG/DL (8.5-10.1) Total Protein 5.9 GM/DL (6.4-8.2) Albumin 3.0 GM/DL (3.4-5.0) Test 08/27/16 19:50 Theophylline Level LESS THAN 2.0 MCG/ML (10.0-20.0) Imaging Last Impressions Chest X-Ray 08/27/16 0600 Signed Impressions: Service Date/Time: Saturday, August 27, 2016 05:41 - CONCLUSION: Minimal right base parenchymal opacity. Murray Dunbar MD PE at Discharge GENERAL: This is a well-nourished, well-developed patient, in no apparent distress. CARDIOVASCULAR: Regular rate and rhythm without murmurs, gallops, or rubs. RESPIRATORY: Clear to auscultation. Breath sounds equal bilaterally. No wheezes , rales, or rhonchi. GASTROINTESTINAL: Abdomen soft, non-tender, nondistended. Normal active bowel sounds MUSCULOSKELETAL: Extremities without clubbing, cyanosis but with bilateral lower extremity edema. NEURO: Alert & Oriented x4 to person, place, time, situation. Moves all ext x4 Hospital Course 1. COPD exacerbation with hypoxemia. Improving switched to by mouth prednisone , continue oxygen, nebulizations and increase activity. 2. Opacity right lung. Continue Z-Vlad. Follow up outpatient with pulmonary M.D. 3. Acute on chronic combined respiratory failure status post extubation. Resolved. Tolerating nasal cannula 4. Transient SVT secondary to above and meds. Symptomatic. Continue telemetry monitoring Chronic medical conditions of congestive heart failure hypertension, hyperlipidemia and hypothyroidism stable continue outpatient medications as appropriate DVT prophylaxis with SCD and subcutaneous heparin Pt Condition on Discharge: Stable Discharge Disposition: Discharge Home Discharge Time: <= 30 minutes Discharge Instructions DIET: Follow Instructions for: Heart Healthy Diet Speech Therapy-Diet Recommends: Honey Thickened Liquids, Pureed Activities you can perform: Regular-No Restrictions Activities to Avoid: Driving Follow up Referrals: PCP Follow-up - 2-3 Days Pulmonology - 1 Week New Medications: Azithromycin (Zithromax) 250 Mg Tab 250 MG PO DAILY Infection #3 TAB Prednisone (Prednisone) 20 Mg Tab 40 MG PO DAILY Control Inflammation #10 TAB Continued Medications: Albuterol 18 GM Inh (Ventolin Hfa 18 GM Inh) 90 Mcg/Act Aer 2 PUFF INH Q4H PRN SHORTNESS OF BREATH #1 Ref 0 INHALER Albuterol Neb (Albuterol Neb) 2.5 Mg/3 Ml Neb 2.5 MG NEB Q4HR NEB PRN SHORTNESS OF BREATH #60 Ref 0 NEBULE Aspirin (Aspirin) 81 Mg Chew 81 MG CHEW DAILY Ref 0 TAB Cholecalciferol (Vitamin D-3) 1,000 Unit Cap 1 TAB PO DAILY Coenzyme Q10 (Ubidecarenone) (Coq-10) 100 Mg Cap 1 TAB PO DAILY Ipratropium-Albuterol Neb (Duoneb) 0.5-2.5 Mg/3 Ml Neb 1 NEBULE INH Q6HR NEB Breathing Treatment #120 Ref 0 NEBULE Levothyroxine (Levothyroxine) 150 Mcg Tab 150 MCG PO DAILY Thyroid #30 Ref 0 TAB Lisinopril (Lisinopril) 2.5 Mg Tab 2.5 MG PO DAILY #30 Ref 0 TAB Multiple Vitamins W/ Minerals (Centrum) 1 Tab 1 TAB PO DAILY Nutritional Supplement Ref 0 TAB Rosuvastatin (Crestor) 5 Mg Tab 5 MG PO DAILY Cholesterol Management #30 Ref 0 TAB Tamsulosin (Tamsulosin) 0.4 Mg Cap 0.4 MG PO HS Manage Prostate Problems #30 Ref 0 CAP Theophylline ER 12 HR (Theophylline ER 12 HR) 200 Mg Tab 200 MG PO AC BREAKFAST #60 Ref 0 TAB Theophylline ER 12 HR (Theophylline ER 12 HR) 450 Mg Tab 400 MG PO HS #60 Ref 0 TAB Tiotropium-Olodaterol Inh (Stiolto Respimat Inh) 2.5-2.5 Mcg/Act Aero 2 PUFF INH DAILY COPD #1 Ref 0 INHALER Magdi East MD Aug 28, 2016 12:35
== END 2016-08-28 14:15 | disposition home or self-care (01) | DRG 208 ==
LOC: NEPC 21:08 → NEDA 22:52 → N03A 08-26 03:01
PROVIDERS: ADMIT Internal Medicine; ATTEND Internal Medicine
PROC: 0BH17EZ Insertion of Endotracheal Airway into Trachea, Via Natural or Artificial Opening (ICD-10-PCS; principal; 2016-08-25)
PROC: 5A1945Z Respiratory Ventilation, 24-96 Consecutive Hours (ICD-10-PCS; 2016-08-25)
DX: J44.1 Chronic obstructive pulmonary disease with (acute) exacerbation (principal); J96.21 Acute and chronic respiratory failure with hypoxia; I50.9 Heart failure, unspecified; J96.22 Acute and chronic respiratory failure with hypercapnia; I47.1 Supraventricular tachycardia; I25.810 Atherosclerosis of coronary artery bypass graft(s) without angina pectoris; Z99.81 Dependence on supplemental oxygen; E03.9 Hypothyroidism, unspecified; E78.5 Hyperlipidemia, unspecified; I10 Essential (primary) hypertension; J45.909 Unspecified asthma, uncomplicated; M19.90 Unspecified osteoarthritis, unspecified site; Z87.891 Personal history of nicotine dependence; Z95.1 Presence of aortocoronary bypass graft; H91.90 Unspecified hearing loss, unspecified ear; F41.0 Panic disorder [episodic paroxysmal anxiety]
CPT/HCPCS: 36600; 51702; 71010; 80048; 80053; 80198; 81001; 82550; 82552; 82805; 83036; 83735; 83880; 84100; 84484; 85025; 85610; 85730; 87040; 87641; 93005; 94002; 94003; 94640; 94664; 96374; 96375; C9113; J1120; J1644; J1956; J2930; J7030; J7050; J7512

== ENCOUNTER 2017-01-03 18:18 | Inpatient (IN) | payer OTHER, MEDICARE ==
[2017-01-03] VITALS (7 sets, daily range): BP systolic 103–158; BP diastolic 66–76; PULSE 86–141; RESP 18–24; TEMP 97.9–98.5; O2SAT 98–100
[~2017-01-03] VITALS: Ht 170.2 cm; Wt 52.0 kg
[~2017-01-03 18:18] MED LIST changes: +ZITH250T PO
[2017-01-03] MEDS ORDERED: NITROGLYCERIN 2% OINT 1 GM PACKET TOP ONE (18:45)
[2017-01-03] MEDS ORDERED: SODIUM CHLORIDE 0.9% FLUSH 10 ML FLUSH IVF PRN (18:45)
[2017-01-03] MEDS ORDERED: MORPHINE SULFATE 4 MG/ML INJ IV PUSH ONE (18:45)
--- NOTE | 2017-01-03 18:45 | PD ---
HPI Chief Complaint: Respiratory Distress Time Seen by Provider: 18:35 Travel History International Travel<30 days: No Contact w/Intl Traveler<30days: No Traveled to known affect area: No History of Present Illness HPI The patient's 81 years old and arrives by EMS due to chest pain. In the ER he states his chest pain is 6/10. At its worst today it was 9/10. He had chest pain this morning retrosternal with pain in the back as well. It was intermittent throughout the course of the day and worse with exertion. The patient's also had worsening shortness of breath. EMS notes on scene the O2 saturation was 82% on 2 L. The patient is noted to have COPD and is oxygen dependent 24 7. There is also a history of CHF. EMS notes no rales on exam. The patient received albuterol twice en route as well as 125 mg Solu-Medrol. The patient additionally received one spray of nitroglycerin 0.4 mg and 162 mg of aspirin in total today. The patient notes that about 15 years ago he underwent cardiac catheterization and 2 stents were placed. He's had no interval acute coronary interventions of which he is aware. He notes a stress test performed about [address] Sheets was done and intervention was recommended which was the states was a defibrillator. 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) Anxiety: Yes (panic attacks) Depression: Yes Cardiac Catheterization: Yes Cardiovascular Problems: Yes High Cholesterol: Yes Congestive Heart Failure: Yes COPD: Yes Diabetes: No Diminished Hearing: Yes (HARD OF HEARING) Endocrine: Yes Hypertension: Yes Immune Disorder: No Insomnia: Yes Musculoskeletal: Yes Neurologic: Yes Respiratory: Yes Migraines: Yes (with halos from processed foods (nitrates)) Thyroid Disease: Yes Triglycerides - High: Yes Tetanus Vaccination: Unknown Influenza Vaccination: Yes Past Surgical History Abdominal Surgery: No Body Medical Devices: heart stent Cardiac Surgery: Yes (stent) Coronary Artery Bypass Graft: Yes Other Surgery: Yes (VEIN STRIPPING RT ) Social History Alcohol Use: Yes (OCC) Tobacco Use: No (QUIT 1994) Substance Use: No Allergies-Medications (Allergen,Severity, Reaction): Coded Allergies: No Known Allergies (Unverified , 01/03/17) Reported Meds & Prescriptions Reported Meds & Active Scripts Active Prednisone 20 Mg Tab 20 Mg PO BID Albuterol Neb (Albuterol Sulfate) 2.5 Mg/3 Ml Neb 2.5 Mg NEB Q4HR NEB PRN Reported Centrum (Multiple Vitamins W/ Minerals) 1 Tab 1 Tab PO DAILY Vitamin D-3 (Cholecalciferol) 1,000 Unit Cap 1 Tab PO DAILY Aspirin 81 Mg Chew 81 Mg CHEW DAILY Coq-10 (Coenzyme Q10 (Ubidecarenone)) 100 Mg Cap 1 Tab PO DAILY Theophylline ER 12 HR (Theophylline) 450 Mg Tab 400 Mg PO HS Theophylline ER 12 HR (Theophylline) 200 Mg Tab 200 Mg PO AC BREAKFAST Duoneb (Ipratropium-Albuterol Neb) 0.5-2.5 Mg/3 Ml Neb 1 Nebule INH Q6HR NEB Crestor (Rosuvastatin Calcium) 5 Mg Tab 5 Mg PO DAILY Lisinopril 2.5 Mg Tab 2.5 Mg PO DAILY Tamsulosin (Tamsulosin HCl) 0.4 Mg Cap 0.4 Mg PO HS Levothyroxine (Levothyroxine Sodium) 150 Mcg Tab 150 Mcg PO DAILY Stiolto Respimat Inh (Tiotropium-Olodaterol Inh) 2.5-2.5 Mcg/Act Aero 2 Puff INH DAILY Ventolin Hfa 18 GM Inh (Albuterol Sulfate) 90 Mcg/Act Aer 2 Puff INH Q4H PRN Review of Systems Except as stated in HPI: all other systems reviewed are Neg General / Constitutional: No: Fever Cardiovascular: Positive: Chest Pain or Discomfort, Tachycardia, Edema (chronic ), No: Diaphoresis, Syncope Physical Exam Narrative GENERAL: 81 yo M, WNWD, moderate resp distress SKIN: Warm and dry. HEAD: Atraumatic. Normocephalic. EYES: Pupils equal and round. No scleral icterus. No injection or drainage. ENT: No nasal bleeding or discharge. Mucous membranes pink and moist. NECK: Trachea midline. No JVD. CARDIOVASCULAR: Irregular. Tachycardia. RESPIRATORY: Tachypnea. Diminished throughout. GASTROINTESTINAL: Abdomen soft, non-tender, nondistended. Hepatic and splenic margins not palpable. MUSCULOSKELETAL: Extremities without clubbing, cyanosis, or edema. No obvious deformities. NEUROLOGICAL: Awake and alert. No obvious cranial nerve deficits. Motor grossly within normal limits. Five out of 5 muscle strength in the arms and legs. Normal speech. PSYCHIATRIC: Appropriate mood and affect; insight and judgment normal. Data Data Last Documented VS Vital Signs Date Time Temp Pulse Resp B/P Pulse Ox O2 Delivery O2 Flow Rate FiO2 01/03/17 18:46 24 100 Non-Rebreather 15 01/03/17 18:35 138 158/70 01/03/17 18:30 98.5 VS reviewed Orders Electrocardiogram (01/03/17 18:35) Basic Metabolic Panel (Bmp) (01/03/17 18:35) B-Type Natriuretic Peptide (01/03/17 18:35) Ckmb (Isoenzyme) Profile (01/03/17 18:35) Complete Blood Count With Diff (01/03/17 18:35) Magnesium (Mg) (01/03/17 18:35) Prothrombin Time / Inr (Pt) (01/03/17 18:35) Act Partial Throm Time (Ptt) (01/03/17 18:35) Troponin I (01/03/17 18:35) Chest, Single Ap (01/03/17 18:35) Ecg Monitoring (01/03/17 18:35) Bilateral Bp Monitoring (01/03/17 18:35) Iv Access Insert/Monitor (01/03/17 18:35) Oximetry (01/03/17 18:35) Oxygen Administration (01/03/17 18:35) Morphine Inj (Morphine Inj) (01/03/17 18:45) Nitroglycerin 2% Oint (Nitroglycerin 2% (01/03/17 18:45) Sodium Chloride 0.9% Flush (Ns Flush) (01/03/17 18:45) Metoprolol Tartrate Inj (Lopressor Inj) (01/03/17 18:45) Heparin Infusion KARYN.Q1H (01/03/17 18:46) Heparin Inj (Heparin Inj) (01/03/17 19:00) Heparin Inj (Heparin Inj) (01/04/17 01:00) Heparin Inj (Heparin Inj) (01/04/17 01:00) Heparin-D5w Inj (Heparin-D5w Inj) (01/03/17 19:00) Act Partial Throm Time (Ptt) (01/03/17 18:46) Prothrombin Time / Inr (Pt) (01/03/17 18:46) Cbc No Diff, Includes Plts (01/06/17 06:00) Act Partial Throm Time (Ptt) (01/04/17 01:46) Occult Blood (Hemoccult) Stool (01/03/17 18:46) Labs Laboratory Tests Test 01/03/17 18:40 White Blood Count 13.2 TH/MM3 Red Blood Count 4.25 MIL/MM3 Hemoglobin 13.2 GM/DL Hematocrit 40.4 % Mean Corpuscular Volume 95.2 FL Mean Corpuscular Hemoglobin 31.0 PG Mean Corpuscular Hemoglobin 32.6 % Concent Red Cell Distribution Width 13.4 % Platelet Count 185 TH/MM3 Mean Platelet Volume 7.3 FL Neutrophils (%) (Auto) 86.6 % Lymphocytes (%) (Auto) 10.7 % Monocytes (%) (Auto) 2.7 % Eosinophils (%) (Auto) 0.0 % Basophils (%) (Auto) 0.0 % Neutrophils # (Auto) 11.4 TH/MM3 Lymphocytes # (Auto) 1.4 TH/MM3 Monocytes # (Auto) 0.4 TH/MM3 Eosinophils # (Auto) 0.0 TH/MM3 Basophils # (Auto) 0.0 TH/MM3 CBC Comment DIFF FINAL Differential Comment MDM Medical Decision Making Medical Screen Exam Complete: Yes Emergency Medical Condition: Yes Differential Diagnosis NSTEMI, unstable angina, coronary vasospasm, PE, PTX, aortic dissection, pericarditis, myocarditis, endocarditis, PNA, esophageal disease, aneurysm, musculoskeletal etiologies, anxiety, cocaine/sympathomimetic abuse Narrative Course CBC & BMP Diagram 01/03/17 18:40 EKG: Afib, rate 140s, poss ischemic injury precordial leads primarily laterally Jordon Sykes MD January 03, 2017 18:45
[2017-01-03] MEDS: METOPROLOL TARTRATE 5 MG/5 ML VIAL IVS SCH ×3 (18:50→19:06)
[2017-01-03] MEDS ORDERED: HEPARIN-D5W INJ 250 ML IV SCH (19:00)
[2017-01-03] MEDS ORDERED: HEPARIN SODIUM - IV 10,000 UNITS/10 ML VIAL IV ONE (19:00)
[2017-01-03 19:05] LABS: AUTOMATED NEUTROPHIL # 11.4 TH/MM3 (1.8-7.7); HEMATOCRIT 40.4 % (39.0-51.0); HEMO FLAGS DIFF FINAL; LYMPH % 10.7 % (9.0-44.0); LYMPHOCYTE # 1.4 TH/MM3 (1.0-4.8); MEAN CELL VOLUME 95.2 FL (80.0-100.0); MEAN CORPUSCULAR HGB CONC 32.6 % (32.0-36.0); MONO % 2.7 % (0.0-8.0); NEUT % 86.6 % (16.0-70.0); PLATELET COUNT 185 TH/MM3 (150-450); RED BLOOD COUNT 4.25 MIL/MM3 (4.50-5.90); RED CELL DISTRIBUTION WIDTH 13.4 % (11.6-17.2); WHITE BLOOD COUNT 13.2 TH/MM3 (4.0-11.0)
[2017-01-03] MEDS ORDERED: ZITHTAB PO (19:15)
[2017-01-03] MEDS ORDERED: LEVO.125 PO (19:15)
[2017-01-03 19:24] LABS: APTT (PATIENT) 24.4 SEC (24.3-30.1); PROTHROMBIN TIME - PATIENT 10.7 SEC (9.8-11.6)
[2017-01-03] MEDS ORDERED: METOPROLOL TARTRATE 50 MG TAB PO ONE (19:30)
--- NOTE | 2017-01-03 19:43 | RADRPT ---
EXAM DATE/TIME: 01/03/2017 19:07 [facility] COMPARISON: CHEST SINGLE AP, August 27, 2016, 5:41. INDICATIONS : Chest pain. MEDICAL HISTORY : Chronic obstructive pulmonary disease. Emphysema. Myocardial infarction. Congestive heart failure . SURGICAL HISTORY : Cardiac stent. ENCOUNTER: Initial ACUITY: 2 days PAIN SCORE: 5/10 LOCATION: Bilateral chest FINDINGS: A single view of the chest demonstrates the lungs to be symmetrically aerated without evidence of mas s, infiltrate or effusion. The cardiomediastinal contours are unremarkable. Osseous structures are intact. CONCLUSION: No acute disease. Ady Morrell Jr., MD on January 03, 2017 at 19:41 Board Certified Radiologist. This report was verified electronically.
[2017-01-03 20:01] LABS: BICARBONATE 37.5 MEQ/L (21.0-32.0); MAGNESIUM 1.4 MG/DL (1.5-2.5)
[2017-01-03] MEDS ORDERED: BISACODYL 10 MG SUPP RECTAL PRN (20:15)
[2017-01-03] MEDS ORDERED: SODIUM CHLORIDE 0.9% FLUSH 10 ML FLUSH IV FLUSH PRN (20:15)
[2017-01-03] MEDS ORDERED: LACTULOSE SYRUP 20 GM/30 ML CUP PO PRN (20:15)
[2017-01-03] MEDS ORDERED: ONDANSETRON HCL 4 MG/2 ML VIAL IVP PRN (20:15)
[2017-01-03] MEDS ORDERED: SENNOSIDES 8.6 MG TAB PO PRN (20:15)
[2017-01-03] MEDS ORDERED: RESP: ALBUTEROL 2.5 MG/IPRATROPIUM 0.5 MG NEB (PRN) NEB (20:15)
[2017-01-03] MEDS ORDERED: MORPHINE SULFATE 4 MG/ML INJ IV PRN (20:15)
[2017-01-03] MEDS ORDERED: ACETAMINOPHEN/HYDROcodone 325 MG/5 MG TAB PO PRN (20:15)
[2017-01-03] MEDS ORDERED: MAGNESIUM HYDROXIDE SUSP 30 ML CUP PO PRN (20:15)
[2017-01-03 20:16] LABS: CALCIUM-PROTEIN CORRECTED 8.1 MG/DL (8.5-10.1)
[2017-01-03 20:20] LABS: POTASSIUM 2.8 MEQ/L (3.5-5.1)
[2017-01-03] MEDS ORDERED: CALCIUM CHLORIDE 10% SOLN 1 GRAM/10 ML SYR IV PUSH ONE (20:30)
[2017-01-03] MEDS ORDERED: MAGNESIUM SULFATE 1 GM PREMIX 100 ML IV ONE (20:30)
[2017-01-03] MEDS ORDERED: POTASSIUM CHLOR 10 MEQ PREMIX 100 ML IV ONE (20:30)
[2017-01-03] MEDS ORDERED: POTASSIUM CHLORIDE 20 MEQ CONTROLLED RELEASE TAB PO ONE (20:30)
--- NOTE | 2017-01-03 20:34 | HHI.HP ---
[facility] Miguel Knight MD Admission Diagnosis respiratory distress, new onset A. fib with RVR, rule out ACS Diagnoses: (1) Atrial fibrillation with RVR Diagnosis: Principal (2) COPD (chronic obstructive pulmonary disease) Diagnosis: Principal (3) Hypoxia Diagnosis: Principal (4) Elevated troponin Diagnosis: Principal (5) CHF (congestive heart failure) Diagnosis: Principal (6) Hypokalemia Diagnosis: Principal (7) Hypocalcemia Diagnosis: Principal (8) Hypomagnesemia Diagnosis: Principal (9) Leukocytosis Diagnosis: Principal Travel History International Travel<30 Days: No Contact w/Intl Traveler <30 Da: No Traveled to Known Affected Are: No History of Present Illness This is an 81-year-old male with a PMH of Depression, HTN, COPD, O2 Dependent on 2L NC, CHF (unknown EF), CAD s/p Stent and Hyperlipidemia who was brought to the ER by EMS secondary to severe SOB. Upon EMS arrival, noted to have O2 sat 82% on 2L NC w/ significant respiratory distress. S/p Solu-Medrol and DuoNeb w / some improvement. Also noted to be in A-fib w/ RVR, HR 140-150's, s/p Lopressor IV w/ HR now 90-100's. Per , she checks his vitals and O2 sat regularly and she's noted his HR to be "all over the place" for several weeks, was told by home visiting doctor that he needs to see his Road Supervisor, Dr. Sheets. Per , never diagnosed w/ A-fib. also mentions has been on Z-michael since Friday in addition to Prednisone 20mg BID, dose increased from 10mg BID. On arrival, BP 158/70, HR 141, O2 sat 100% on NRM, Afebrile. WBC 13.2, elevated neutrophil count. K+ 2.8, Calcium 7.0. Mg 1.4. Trop 0.07, noted to have some new EKG changes. ER doc spoke w/ Dr. Osorio, recommended Heparin gtt, started in ER. BNP 227. CXR w/ no acute findings. Pt currently weaned down to 4L NC w/ O2 sat 100%. Review of Systems Except as stated in HPI: all other systems reviewed are Neg ROS: 14 point review of systems otherwise negative. Past Family Social History Past Medical History PMH: Depression, HTN, COPD, O2 Dependent on 2L NC, CHF (unknown EF), CAD s/p Stent and Hyperlipidemia Past Surgical History PAST SURGICAL HISTORY: Cardiac Stent, CABG Allergies: Coded Allergies: No Known Allergies (Unverified , 01/03/17) Family History PAST FAMILY HISTORY: Reviewed. No h/o DM or CAD Social History PAST SOCIAL HISTORY: Occasional alcohol. Negative for tobacco or drugs. Physical Exam Vital Signs Vital Signs Date Time Temp Pulse Resp B/P Pulse Ox O2 Delivery O2 Flow Rate FiO2 01/03/17 19:52 103 24 105/66 100 Nasal Cannula 3 01/03/17 19:20 103 24 109/68 99 Nasal Cannula 2 01/03/17 18:46 24 100 Non-Rebreather 15 01/03/17 18:46 100 Non-Rebreather 15 01/03/17 18:35 138 24 158/70 100 Non-Rebreather 15 01/03/17 18:35 140 24 100 Non-Rebreather 15 01/03/17 18:30 98.5 141 24 158/70 100 Physical Exam PE: GENERAL: Very pleasant thin elderly white male in no acute distress. at bedside. Dyspnea with speech HEENT: PERRLA, EOMI. No scleral icterus or conjunctival pallor. No lid lag or facial droop. CARDIOVASCULAR: Irregularly irregular, in A. fib, HR 90-100s. No obvious murmurs to auscultation. No chest tenderness to palpation. RESPIRATORY: No obvious rhonchi. Occasional wheezing. Clear to auscultation. Decreased breath sounds bilaterally GASTROINTESTINAL: Abdomen soft, non-tender, nondistended. BS normal. MUSCULOSKELETAL: Extremities without clubbing, cyanosis. 1+ edema. No obvious deformities. NEUROLOGICAL: Awake, alert and oriented x4. No focal neurologic deficits. Moving both upper and lower extremities spontaneously. Laboratory Laboratory Tests Test 01/03/17 18:40 White Blood Count 13.2 Red Blood Count 4.25 Hemoglobin 13.2 Hematocrit 40.4 Mean Corpuscular Volume 95.2 Mean Corpuscular Hemoglobin 31.0 Mean Corpuscular Hemoglobin 32.6 Concent Red Cell Distribution Width 13.4 Platelet Count 185 Mean Platelet Volume 7.3 Neutrophils (%) (Auto) 86.6 Lymphocytes (%) (Auto) 10.7 Monocytes (%) (Auto) 2.7 Eosinophils (%) (Auto) 0.0 Basophils (%) (Auto) 0.0 Neutrophils # (Auto) 11.4 Lymphocytes # (Auto) 1.4 Monocytes # (Auto) 0.4 Eosinophils # (Auto) 0.0 Basophils # (Auto) 0.0 CBC Comment DIFF FINAL Differential Comment Prothrombin Time 10.7 Prothromb Time International 1.0 Ratio Activated Partial 24.4 Thromboplast Time Sodium Level 143 Potassium Level 2.8 Chloride Level 100 Carbon Dioxide Level 37.5 Anion Gap 6 Blood Urea Nitrogen 12 Creatinine 0.66 Estimat Glomerular Filtration 116 Rate Random Glucose 152 Calcium Level 7.0 Protein Corrected Calcium 8.1 Magnesium Level 1.4 Total Creatine Kinase 35 Troponin I 0.07 B-Type Natriuretic Peptide 227 Total Protein 5.1 Result Diagram: 01/03/17183901/03/171839 Assessment and Plan Problem List: (1) Atrial fibrillation with RVR ICD Code: I48.91 Status: Acute (2) COPD (chronic obstructive pulmonary disease) ICD Code: J44.9 Status: Acute (3) Hypoxia ICD Code: R09.02 Status: Acute (4) Elevated troponin ICD Code: R74.8 Status: Acute (5) CHF (congestive heart failure) ICD Code: I50.9 Status: Acute (6) Hypokalemia ICD Code: E87.6 Status: Acute (7) Hypocalcemia ICD Code: E83.51 Status: Acute (8) Hypomagnesemia ICD Code: E83.42 Status: Acute (9) Leukocytosis ICD Code: D72.829 Status: Acute Assessment and Plan A/P: 1. A-fib w/ RVR: New Onset, possibly triggered by hypoxia or underlying ischemia. Per , pt w/ irregular HR for several weeks, however no official diagnosis. Follows w/ Dr. Sheets as outpatient, will consult for further evaluation. S/p Lopressor IV and Metoprolol PO in ER, HR now 90-100's. Admit to CIC, telemetry for continuous monitoring. Currently on Heparin gtt per Dr. Osorio recommendation. 2. Elevated Trop: Trop 0.07, new EKG changes on arrival, ER physician consulted Cardiology, recommended Heparin gtt, currently started. Check serial cardiac enzymes. Continue ASA, Statin, B-symone. 3. CHF: Unknown EF, +mild pedal edema on exam. BNP 277, CXR w/ no acute findings, images reviewed by me. Check Echo for further eval. 4. COPD: Chronic Respiratory Failure w/ Acute Exacerbation and associated Hypoxia, O2 sat 82% on 2L NC. O2 Dependent on 2L NC at baseline, weaned down from NRM to 4L NC, will monitor. CXR negative as above. Continue w/ Solu- Medrol, Xopenex q4h and q2h prn, home MDI. 5. Hypokalemia: K+ 2.8, s/p replacement in ER, will recheck and replace as needed. 6. Hypocalcemia: Ca 7.0, corrected 8.1, s/p replacement in ER, will recheck in am. 7. Hypomagnesemia: Mg 1.4, s/p replacement. Will repeat in am, replace as needed. 8. Leukocytosis: WBC 13.2, elevated neutrophil count, possibly compounded by recent steroids, on Prednisone 20mg bid at home, however will start empiric treatment for possible Atypical PNA. Recently started Z-michael on Friday, now completed. 9. DVT Prophylaxis: On Heparin gtt 10. Social work for d/c planning as needed. 11. Case discussed w/ ER physician at length. Physician Certification 2 Midnight Certification Type: Admission for Inpatient Services Order for Inpatient Services The services are ordered in accordance with Medicare regulations or non- Medicare payer requirements, as applicable. In the case of services not specified as inpatient-only, they are appropriately provided as inpatient services in accordance with the 2-midnight benchmark. Estimated LOS (days): 2 days is the estimated time the patient will need to remain in the hospital, assuming treatment plan goals are met and no additional complications. Post-Hospital Plan: Not yet determined Pooja Bermudez MD January 03, 2017 20:34
--- NOTE | 2017-01-03 20:41 | PD ---
Physical Exam Date Seen by Provider: January 03, 2017 Time Seen by Provider: 20:33 Narrative 81-year-old male came to the emergency room with history of shortness of breath that is acute on chronic. Patient has history of significant cardiac disease as well as COPD. He is oxygen dependent 03/03 on 2 L via nasal cannula. This evening he started getting very short of breath along with chest pain. He describes the chest pain mostly exertional which was substernal and radiating to the back. His called 911 as per EMS his oxygen saturation was in the low 80s upon arrival on his 2 L of oxygen. They gave him 3 albuterol en route along with Solu-Medrol. He was seen by the previous ER physician who noticed that patient was in A. fib with RVR. This was a new onset atrial fibrillation by his knowledge. He discussed the case with Dr. Osorio from cardiology who recommended to start the patient on heparin bolus and drip and IV metoprolol to slow the rate down. Please refer to his documentation on the history and physical for further details. Case was signed over to me to follow-up on the labs and admission eventually. I went and reassessed the patient and spoke with the in extent. Patient was saturating 100% at this point a nasal cannula. He had received IV Lopressor 5 mg and his heart rate had come down to low 100s. Patient said the chest pain was only upon movement like sitting up or turning on the stretcher to the side. Patient is very hard of hearing and due to his distress in addition was not the best historian. His however was giving an excellent and thorough history. She said that the patient's wishes were to give a trial of ventilator if needed. His blood test results have come back and patient has significant hypomagnesemia, hypocalcemia and hypokalemia. These are getting replaced as per my orders. Patient has been started on the heparin drip. I discussed the case with the hospitalist who has accepted the patient and patient will be admitted to CICU. Data Data Last Documented VS Vital Signs Date Time Temp Pulse Resp B/P Pulse Ox O2 Delivery O2 Flow Rate FiO2 01/03/17 19:52 103 24 105/66 100 Nasal Cannula 3 01/03/17 18:30 98.5 Orders Electrocardiogram (01/03/17 18:35) Basic Metabolic Panel (Bmp) (01/03/17 18:35) B-Type Natriuretic Peptide (01/03/17 18:35) Ckmb (Isoenzyme) Profile (01/03/17 18:35) Complete Blood Count With Diff (01/03/17 18:35) Magnesium (Mg) (01/03/17 18:35) Prothrombin Time / Inr (Pt) (01/03/17 18:35) Act Partial Throm Time (Ptt) (01/03/17 18:35) Troponin I (01/03/17 18:35) Chest, Single Ap (01/03/17 18:35) Ecg Monitoring (01/03/17 18:35) Bilateral Bp Monitoring (01/03/17 18:35) Iv Access Insert/Monitor (01/03/17 18:35) Oximetry (01/03/17 18:35) Oxygen Administration (01/03/17 18:35) Morphine Inj (Morphine Inj) (01/03/17 18:45) Nitroglycerin 2% Oint (Nitroglycerin 2% (01/03/17 18:45) Sodium Chloride 0.9% Flush (Ns Flush) (01/03/17 18:45) Metoprolol Tartrate Inj (Lopressor Inj) (01/03/17 18:45) Heparin Infusion KARYN.Q1H (01/03/17 18:46) Heparin Inj (Heparin Inj) (01/03/17 19:00) Heparin Inj (Heparin Inj) (01/04/17 01:00) Heparin Inj (Heparin Inj) (01/04/17 01:00) Heparin-D5w Inj (Heparin-D5w Inj) (01/03/17 19:00) Act Partial Throm Time (Ptt) (01/04/17 01:46) Metoprolol Tartrate (Lopressor) (01/03/17 19:30) Electrocardiogram (01/03/17 18:28) Electrocardiogram (01/03/17 18:29) Electrocardiogram (01/03/17 18:30) Protein Corrected Calcium(Pcc) (01/03/17 18:40) Admit Order (Ed Use Only) (01/03/17 20:18) Labs Laboratory Tests Test 01/03/17 18:40 White Blood Count 13.2 TH/MM3 Red Blood Count 4.25 MIL/MM3 Hemoglobin 13.2 GM/DL Hematocrit 40.4 % Mean Corpuscular Volume 95.2 FL Mean Corpuscular Hemoglobin 31.0 PG Mean Corpuscular Hemoglobin 32.6 % Concent Red Cell Distribution Width 13.4 % Platelet Count 185 TH/MM3 Mean Platelet Volume 7.3 FL Neutrophils (%) (Auto) 86.6 % Lymphocytes (%) (Auto) 10.7 % Monocytes (%) (Auto) 2.7 % Eosinophils (%) (Auto) 0.0 % Basophils (%) (Auto) 0.0 % Neutrophils # (Auto) 11.4 TH/MM3 Lymphocytes # (Auto) 1.4 TH/MM3 Monocytes # (Auto) 0.4 TH/MM3 Eosinophils # (Auto) 0.0 TH/MM3 Basophils # (Auto) 0.0 TH/MM3 CBC Comment DIFF FINAL Differential Comment Prothrombin Time 10.7 SEC Prothromb Time International 1.0 RATIO Ratio Activated Partial 24.4 SEC Thromboplast Time Sodium Level 143 MEQ/L Potassium Level 2.8 MEQ/L Chloride Level 100 MEQ/L Carbon Dioxide Level 37.5 MEQ/L Anion Gap 6 MEQ/L Blood Urea Nitrogen 12 MG/DL Creatinine 0.66 MG/DL Estimat Glomerular Filtration 116 ML/MIN Rate Random Glucose 152 MG/DL Calcium Level 7.0 MG/DL Protein Corrected Calcium 8.1 MG/DL Magnesium Level 1.4 MG/DL Total Creatine Kinase 35 U/L Troponin I 0.07 NG/ML B-Type Natriuretic Peptide 227 PG/ML Total Protein 5.1 GM/DL MDM Supervised Visit with [facility]STA: No Critical Care Narrative Aggregate critical care time was 45 minutes. Time to perform other separately billable procedures was not included in the critical care time. My time did not include minutes spent treating any other patients simultaneously or on activities that did not directly contribute to the patient's treatment. The services I provided to this patient were to treat and/or prevent clinically significant deterioration that could result in: Respiratory distress, atrial fibrillation with RVR, COPD exacerbation, chest pain/ACS, critical hypomagnesemia, hypokalemia, hypocalcemia I provided critical care services requiring my management, as noted below: Chart data review, documentation time, medication orders and management, vital sign assessments/reviewing monitor data, ordering and reviewing lab tests, ordering and interpreting/reviewing x-rays and diagnostic studies, care of the patient and discussion of the patient with the admitting physicians. Diagnosis Primary Impression: Respiratory distress Additional Impressions: COPD exacerbation New onset atrial fibrillation Atrial fibrillation with RVR Acute hypokalemia Hypocalcemia Chest pain Qualified Code: R07.9 - Chest pain, unspecified type Admitting Information Admitting Physician Requests: Admit Lisa Ross MD January 03, 2017 20:41 Admitting Physician Requests: Admit Lisa Ross MD January 03, 2017 20:41
[2017-01-03] MEDS ORDERED: RESP: LEVALBUTEROL HYDROCHLORIDE 1.25 MG/3 ML NEB (PRN) NEB (21:00)
[2017-01-03] MEDS: SODIUM CHLORIDE 0.9% FLUSH 10 ML FLUSH IV FLUSH SCH (22:59)
[2017-01-03] MEDS: TAMSULOSIN HCL 0.4 MG CAP PO SCH (22:59)
[2017-01-03] MEDS: DOCUSATE SODIUM 50 MG/SENNA 8.6 MG TAB PO SCH (22:59)
[2017-01-03] MEDS: LEVOFLOXACIN 750 MG PREMIX INJ 150 ML IV SCH (23:00)
[2017-01-03] MEDS: methylPREDNISolone SOD SUCC 40 MG/1 ML VIAL IV PUSH SCH (23:37)
[2017-01-04] VITALS (29 sets, daily range): BP systolic 110–129; BP diastolic 74–94; PULSE 76–144; RESP 22–26; TEMP 98–99.2; O2SAT 93–100
[2017-01-04] MEDS ORDERED: HEPARIN SODIUM - IV 10,000 UNITS/10 ML VIAL IV PRN ×2 (01:00)
[2017-01-04] MEDS: RESP: IPRATROPIUM 0.5 MG/2.5 ML NEB NEB PRN (03:49)
[2017-01-04 04:53] LABS: APTT (PATIENT) 94.2 SEC (24.3-30.1)
[2017-01-04] MEDS: methylPREDNISolone SOD SUCC 40 MG/1 ML VIAL IV PUSH SCH ×3 (05:54→18:45)
[2017-01-04] MEDS ORDERED: LEVOTHYROXINE SODIUM 125 MCG TAB PO SCH (06:00)
[2017-01-04 07:13] LABS: AUTOMATED NEUTROPHIL # 8.2 TH/MM3 (1.8-7.7); HEMATOCRIT 36.4 % (39.0-51.0); HEMO FLAGS DIFF FINAL; LYMPH % 4.5 % (9.0-44.0); LYMPHOCYTE # 0.4 TH/MM3 (1.0-4.8); MEAN CELL VOLUME 94.8 FL (80.0-100.0); MEAN CORPUSCULAR HEMOGLOBIN 32.1 PG (27.0-34.0); MEAN CORPUSCULAR HGB CONC 33.8 % (32.0-36.0); MONO % 2.9 % (0.0-8.0); NEUT % 92.6 % (16.0-70.0); PLATELET COUNT 173 TH/MM3 (150-450); RED BLOOD COUNT 3.84 MIL/MM3 (4.50-5.90); RED CELL DISTRIBUTION WIDTH 13.2 % (11.6-17.2); WHITE BLOOD COUNT 8.9 TH/MM3 (4.0-11.0)
[2017-01-04] MEDS ORDERED: RESP: ALBUTEROL 2.5 MG/IPRATROPIUM 0.5 MG NEB (SCH) NEB (08:00)
[2017-01-04 08:05] LABS: THEOPHYLLINE 5.2 MCG/ML (10.0-20.0)
[2017-01-04 08:12] LABS: ALKALINE PHOSPHATASE 62 U/L (45-117); ALT (GPT) 33 U/L (12-78); ANION GAP 5 MEQ/L (5-15); AST (GOT) 21 U/L (15-37); BLOOD UREA NITROGEN 18 MG/DL (7-18); CHLORIDE 90 MEQ/L (98-107); GLOMERULAR FILTRATION RATE 114 ML/MIN (>89); MAGNESIUM 1.9 MG/DL (1.5-2.5); POTASSIUM 4.5 MEQ/L (3.5-5.1); SODIUM (NA) 139 MEQ/L (136-145); TOTAL BILIRUBIN ADULT 0.5 MG/DL (0.2-1.0)
--- NOTE | 2017-01-04 08:13 | MB ---
cc: TYE MACK MD, EDWARD, MD GOLDSMITH, ALAN S. M.D. BARTHOLOMEW, BETH A. MD DATE OF CONSULTATION: 01/04/2017 HISTORY: Outside in-hospital records have been reviewed. The patient is an 81-year-old gentleman who was admitted with supposed atrial fibrillation, although there is no evidence of that. The patient has severe oxygen-dependent chronic obstructive pulmonary disease and is followed by Dr. Cuevas. He has been intermittently tachycardia but never diagnosed with atrial fibrillation. The patient has had atypical chest fullness related to his severe chronic obstructive pulmonary disease. He has chronic severe chronic obstructive pulmonary disease. This was somewhat worse recently. In the emergency room EKG was apparently misinterpreted his atrial fibrillation and he was placed on anticoagulation and given Cardizem and beta blockers. When I am seeing him. He is on low-dose Cardizem drip and heparin. Rhythm presently shows sinus rhythm with occasional accelerated idioventricular rhythm but no ventricular tachycardia and premature atrial contractions. He has had a history of an ischemic cardiomyopathy but has not wanted any invasive procedures. Review of multiple EKG's, particularly the early ones show what appears to be multifocal atrial tachycardia and not atrial fibrillation along with extensive anterior MO which is old. Chest x-ray Shows no active cardiopulmonary disease. Initial potassium 2.8 which is being repleted. Magnesium 1.4 which is being repleted, creatinine 0.66. Theophylline level was not done troponins flat at 0.07 0.07, BNP 227. PAST MEDICAL HISTORY 1. Coronary artery disease - in 2002 he had a 3.5 X 18 mm bare metal stent in the LAD after an MO. SPECT nuclear 2011 showed predominantly fixed anteroapical defect. He has 25-30% ejection fraction again has no interest in defibrillator. 2. Hypertension 3. Diabetes 4. Hyperlipidemia 5. Chronic tachycardia for which his blood pressure runs low and he has not been treated by Dr. Sheets with beta blockers or Cardizem. 6. Severe oxygen-dependent COPD 7. Macular degeneration. 8. Right varicose vein stripping x2 with chronic trace right lower extremity edema. 9. Cataract. 10. Knee surgery. SOCIAL HISTORY: He is and a former smoker and rarely drinks. FAMILY HISTORY Unremarkable for coronary disease. ALLERGIES None. MEDICATIONS PRIOR TO ADMISSION Include 1. Albuterol. 2. Z-Vlad 3. Levothyroxine. 4. Prednisone. 5. Crestor. 6. Tamsulosin. 7. Theophylline 8. Tiotropium - Olodaterol inhaler REVIEW OF SYSTEMS Remarkable for chronic trace pedal edema, dyspnea and joint discomfort. He also has had some mild urinary retention. PHYSICAL EXAMINATION: IN GENERAL: On exam he is alert and oriented. He is resting comfortably. HEAD, EYES, EARS, NOSE, AND THROAT: There are no xanthelasma and oral pharyngeal mucosa normal. CHEST: With moderate kyphosis and severely decreased breath sounds with prolonged expiratory phase. JVD normal. Distant heart sounds S1-S2 no murmurs or gallops. ABDOMEN: Benign. EXTREMITIES: Show no cyanosis or clubbing but there is trace right lower extremity edema. Pulses carotids without bruits. Radials 1+. Femorals 1 to 2+ without bruits. Pedal is trace. He is not ambulated. PROBLEMS: 1. Multifocal atrial tachycardia - most likely related to underlying lung disease. There is no atrial fibrillation. 2. Coronary disease with ischemic cardiomyopathy. 3. Severe chronic obstructive pulmonary disease. 4. hypertension 5. Diabetes. 6. Hyperlipidemia. 7. Hypothyroidism. RECOMMENDATIONS 1. We will check TSH levels and theophylline level as these were not ordered and certainly this can play into his tachycardia. 2. His troponins are minimally elevated but flat and nonspecific 3. Needs repletion of electrolytes. We would certainly want these in the mid to high normal range. 4. He had mild accelerated idioventricular rhythm on Cardizem but is not symptomatic and has no ventricular tachycardia and has not wanted any further invasive procedures, this should be followed. 5. Low cholesterol / salt / diabetic diet. At this point in time I have nothing to add. Certainly he does not need full anticoagulation and I would continue the aspirin. I have discontinued the Cardizem. When his electrolytes are stabilized he can be discharged with as soon as possible follow up with his PCP. All questions were answered. MD NANCY Chaudhary/wanda /7:46 AM /7:56 AM
[2017-01-04] MEDS ORDERED: PT:STIOLTO RESPIMAT INH SCH (09:00)
[2017-01-04] MEDS ORDERED: NON-FORMULARY DRUG (Rosuvastatin (Crestor) 5 MG) PO SCH (09:00)
[2017-01-04] MEDS ORDERED: NON-FORMULARY DRUG (Tiotropium-Olodaterol Inh (Stiolto Respimat Inh) 2 PUFF) INH SCH (09:00)
[2017-01-04] MEDS: RESP: IPRATROPIUM 0.5 MG/2.5 ML NEB NEB SCH ×4 (09:15→19:04)
[2017-01-04] MEDS: RESP: LEVALBUTEROL HYDROCHLORIDE 1.25 MG/3 ML NEB (SCH) NEB ×4 (09:23→19:04)
[2017-01-04] MEDS: SODIUM CHLORIDE 0.9% FLUSH 10 ML FLUSH IV FLUSH SCH ×2 (10:29→21:00)
[2017-01-04] MEDS: ASPIRIN 81 MG CHEW TAB PO SCH (10:29)
[2017-01-04] MEDS: ATORVASTATIN 10 MG TAB PO SCH (10:29)
[2017-01-04] MEDS: DOCUSATE SODIUM 50 MG/SENNA 8.6 MG TAB PO SCH ×2 (10:29→20:34)
--- NOTE | 2017-01-04 13:42 | EC ---
Study Study Date:01/04/2017 STUDY CONCLUSIONS SUMMARY - Left ventricle: The cavity size was dilated. Wall thickness was normal. Systolic function was severely reduced. The estimated ejection fraction was in the range of 20% to 25%. Diffuse hypokinesis. Doppler parameters are consistent with abnormal left ventricular relaxation (grade 1 diastolic dysfunction). - Mitral valve: Mildly calcified annulus. Mildly thickened leaflets, . Moderate regurgitation. - Tricuspid valve: Mild regurgitation. If LV function is below 40, please consider prescribing an ACEI or ARB or document rationale for non-use. PROCEDURE DATA STUDY STATUS: Elective. Procedure: Transthoracic echocardiography. Image quality was fair. Scanning was performed from the parasternal, apical, and subcostal acoustic windows. Study completion: The patient tolerated the procedure well. Transthoracic echocardiography. M-mode, complete 2D, complete spectral Doppler, and color Doppler. Patient status: Inpatient. CARDIAC ANATOMY LEFT VENTRICLE: The cavity size was dilated. Wall thickness was normal. Systolic function was severely reduced. The estimated ejection fraction was in the range of 20% to 25%. Diffuse hypokinesis. Doppler parameters are consistent with abnormal left ventricular relaxation (grade 1 diastolic dysfunction). AORTIC VALVE: Mildly thickened, mildly calcified leaflets. Doppler: Transvalvular velocity was within the normal range. There was no stenosis. No regurgitation. AORTA: Aortic root: The aortic root was normal in size. MITRAL VALVE: Mildly calcified annulus. Mildly thickened leaflets, . Doppler: Transvalvular velocity was within the normal range. There was no evidence for stenosis. Moderate regurgitation. LEFT ATRIUM: The atrium was normal in size. RIGHT VENTRICLE: The cavity size was normal. Wall thickness was normal. PULMONIC VALVE: Doppler: Transvalvular velocity was within the normal range. There was no evidence for stenosis. No regurgitation. TRICUSPID VALVE: Structurally normal valve. Doppler: Transvalvular velocity was within the normal range. Mild regurgitation. PULMONARY ARTERY: The main pulmonary artery was normal-sized. Systolic pressure was within the normal range. RIGHT ATRIUM: The atrium was normal in size. PERICARDIUM: There was no pericardial effusion. SYSTEMIC VEINS: Inferior vena cava: The vessel was dilated. BASIC MEASUREMENTS ADULT NORMAL Left ventricle LV internal dimension, ED, chordal level, 45.7 mm 43-52 PLAX LV internal dimension, ES, chordal level, *41 mm 23-38 PLAX Fractional shortening, chordal level, PLAX *10 % >29 LV posterior wall thickness, ED 7.11 mm IVS/LVPW ratio, ED *1.5 <1.3 Ventricular septum Septal thickness, ED 10.7 mm Left atrium Anterior-posterior dimension 33 mm Right ventricle RV internal dimension, ED, PLAX 20.1 mm 19-38 DOPPLER MEASUREMENTS ADULT NORMAL Mitral valve Peak E-wave velocity 43.8 cm/s Peak A-wave velocity 80.6 cm/s Peak E/A ratio 0.5 Maximal regurgitant velocity 472 cm/s Tricuspid valve Regurgitant peak velocity 276 cm/s Peak RV-RA gradient, S 30 mm Hg Maximal regurgitant velocity 276 cm/s LEGEND: Mean values are shown as u=mean value. Asterisk (*) velazquez values outside specified normal range. Amended Дмитрий Luna. [id number]
--- NOTE | 2017-01-04 13:51 | HHI.PR ---
Subjective Remarks Follow-up for questionable atrial fibrillation with RVR entrance of breathing. Patient stated that he still feels short of breath. Denying cough. Patient stated that he could take a few steps before getting shortness of breathing. Patient stated he is not back at his baseline. He is on home oxygen. Patient stated that he was told he was going home today. Per nurse assisted living associate stated that patient can go home today. Nurse stated that patient is not able to get out of bed without shortness of breathing. She stated that he is very short of breath with minimal movement. Objective Vitals Vital Signs Date Time Temp Pulse Resp B/P Pulse Ox O2 Delivery O2 Flow Rate FiO2 01/04/17 13:00 104 01/04/17 12:00 98 01/04/17 11:00 98.3 118 24 115/74 98 01/04/17 11:00 98 01/04/17 10:00 100 01/04/17 09:24 99 Nasal Cannula 3.00 01/04/17 09:00 98 01/04/17 08:00 92 01/04/17 08:00 98.1 98 24 115/85 100 01/04/17 07:30 98.1 98 22 115/85 100 01/04/17 07:00 90 01/04/17 06:00 87 01/04/17 05:00 84 01/04/17 04:00 89 01/04/17 03:50 97 Nasal Cannula 3.00 01/04/17 03:00 79 01/04/17 03:00 98.7 91 24 112/80 99 01/04/17 02:00 76 01/04/17 01:00 76 01/04/17 00:00 82 01/03/17 23:00 86 01/03/17 23:00 98.1 86 18 103/76 100 01/03/17 22:18 97.9 88 18 120/76 98 01/03/17 19:52 103 24 105/66 100 Nasal Cannula 3 01/03/17 19:20 103 24 109/68 99 Nasal Cannula 2 01/03/17 18:46 24 100 Non-Rebreather 15 01/03/17 18:46 100 Non-Rebreather 15 01/03/17 18:35 138 24 158/70 100 Non-Rebreather 15 01/03/17 18:35 140 24 100 Non-Rebreather 15 01/03/17 18:30 98.5 141 24 158/70 100 I/O 01/03/17 01/03/17 01/03/17 01/04/17 01/04/17 01/04/17 07:00 15:00 23:00 07:00 15:00 23:00 Intake Total 240 ml Output Total 250 ml Balance -10 ml Intake Oral 240 ml Output Urine Total 250 ml # Bowel Movements 0 Result Diagram: 01/04/1759901/04/17 06 Objective Remarks GENERAL: in in NAD but patient is guarded and is afraid to move due to SOB NECK: Supple, trachea midline. No JVD or lymphadenopathy. CARDIOVASCULAR: Regular rate and rhythm without murmurs, gallops, or rubs. RESPIRATORY: Lung sounds are very distant heart appreciate good lung sounds. No wheezing, crackle or rhonchi appreciated. No accessory muscle use. GASTROINTESTINAL: Abdomen soft, non-tender, nondistended. Medications and IVs Current Medications Morphine Sulfate (Morphine Inj) 2 mg ONCE ONCE IV PUSH Last administered on 19:05; Start 01/03/17 at 18:45; Stop 01/03/17 at 18:46; Status DC Nitroglycerin (Nitroglycerin 2% Oint) 1 inch ONCE ONCE TOP Last administered on 01/03/17 19:06; Start 01/03/17 at 18:45; Stop 01/03/17 at 18:46; Status DC Sodium Chloride (NS Flush) 2 ml UNSCH PRN IVF FLUSH AFTER USING IV ACCESS; Start 01/03/17 at 18:45; Stop 01/03/17 at 21:02; Status DC Metoprolol Tartrate (Lopressor Inj) 5 mg Q5M IVS Last administered on 19:06; Start 01/03/17 at 18:45; Stop 01/03/17 at 18:56; Status DC Heparin Sodium (Porcine) (Heparin Inj) 4,000 units ONCE ONCE IV Last administered on 01/03/17 19:10; Start 01/03/17 at 19:00; Stop 01/03/17 at 19:01 ; Status DC Heparin Sodium (Porcine) (Heparin Inj) 5,000 units UNSCH PRN IV APTT LESS THAN 25; Start 01/04/17 at 01:00 Heparin Sodium (Porcine) 2500 units 2,500 units UNSCH PRN IV APTT 25 TO 39; Start 01/04/17 at 01:00 Heparin Sodium/ Dextrose (Heparin-D5W Inj) 250 ml @ 0 mls/hr TITRATE IV Last administered on 01/03/17 19:44; Start 01/03/17 at 19:00 Metoprolol Tartrate (Lopressor) 50 mg ONCE ONCE PO Last administered on 19:50; Start 01/03/17 at 19:30; Stop 01/03/17 at 19:31; Status DC Calcium Chloride 1 gm 1 gm ONCE ONCE IV PUSH Last administered on 01/03/17 20 :42; Start 01/03/17 at 20:30; Stop 01/03/17 at 20:31; Status DC Magnesium Sulfate/ Dextrose (Magnesium Sulfate 1 Gm Premix) 100 ml @ 100 mls/ hr ONCE ONCE IV Last administered on 01/03/17 20:42; Start 01/03/17 at 20:30 ; Stop 01/03/17 at 21:29; Status DC Potassium Chloride 40 meq 40 meq ONCE ONCE PO Last administered on 01/03/17 20:41; Start 01/03/17 at 20:30; Stop 01/03/17 at 20:31; Status DC Potassium Chloride (KCl 10 Meq Premix Inj) 100 ml @ 100 mls/hr ONCE ONCE IV Last administered on 01/03/17 23:01; Start 01/03/17 at 20:30; Stop 01/03/17 at 21:29; Status DC Methylprednisolone Sodium Succinate (SoluMEDROL INJ) 40 mg Q6HR IV PUSH Last administered on 01/04/17 12:01; Start 01/04/17 at 00:00 Albuterol/ Ipratropium (Duoneb Neb) 1 ampule Q4HR WHILE AWAKE NEB NEB ; Start 01/04/17 at 08:00; Status UNV Albuterol/ Ipratropium 1 ampule 1 ampule Q2HR NEB PRN NEB SOB/WHEEZING; Start 01/03/17 at 20:15; Status UNV Levofloxacin/ Dextrose (Levaquin 750 Mg Premix Inj) 150 ml @ 100 mls/hr Q24H IV Last administered on 01/03/17 23:00; Start 01/03/17 at 21:00 Sodium Chloride (NS Flush) 2 ml UNSCH PRN IV FLUSH FLUSH AFTER USING IV ACCESS ; Start 01/03/17 at 20:15 Sodium Chloride (NS Flush) 2 ml BID IV FLUSH Last administered on 01/04/17 10: 29; Start 01/03/17 at 21:00 Ondansetron HCl (Zofran Inj) 4 mg Q6H PRN IVP NAUSEA OR VOMITING; Start at 20:15 Acetaminophen (Tylenol) 650 mg Q6H PRN PO FEVER/PAIN SCALE 1 TO 2; Start at 20:15 Acetaminophen/ Hydrocodone Bitart ([place] 5-325 Mg) 1 tab Q4H PRN PO PAIN SCALE 3 TO 5; Start 01/03/17 at 20:15 Morphine Sulfate (Morphine Inj) 2 mg Q3H PRN IV Pain 6-10 Last administered on 01/03/17 23:55; Start 01/03/17 at 20:15 Senna/Docusate Sodium (Alycia-Colace) 1 tab BID PO Last administered on 10:29; Start 01/03/17 at 21:00 Magnesium Hydroxide (Milk Of Magnesia Liq) 30 ml Q12H PRN PO MILD - MODERATE CONSTIPATION; Start 01/03/17 at 20:15 Sennosides (Senokot) 17.2 mg Q12H PRN PO MODERATE - SEVERE CONSTIPATION; Start 01/03/17 at 20:15 Bisacodyl (Dulcolax Supp) 10 mg DAILY PRN RECTAL SEVERE CONSITIPATION; Start at 20:15 Lactulose (Lactulose Liq) 30 ml DAILY PRN PO SEVERE CONSITIPATION; Start at 20:15 Aspirin (Aspirin Chew) 81 mg DAILY PO Last administered on 01/04/17 10:29; Start 01/04/17 at 09:00 Levothyroxine Sodium (Synthroid) 125 mcg DAILY@06 PO Last administered on 05:54; Start 01/04/17 at 06:00 Tamsulosin HCl (Flomax) 0.4 mg HS PO Last administered on 01/03/17 22:59; Start 01/03/17 at 21:00 Non-Formulary Medication 5 mg DAILY PO CM; Start 01/04/17 at 09:00; Stop at 09:00; Status DC Non-Formulary Medication 2 puff DAILY INH COPD; Start 01/04/17 at 09:00; Status UNV Atorvastatin Calcium (Lipitor) 10 mg DAILY PO Last administered on 01/04/17 10 :29; Start 01/04/17 at 09:00 Levalbuterol HCl (Xopenex Neb) 1.25 mg Q4HR WHILE AWAKE NEB NEB Last administered on 01/04/17 13:32; Start 01/04/17 at 08:00 Ipratropium Buford (Atrovent Neb) 0.5 mg Q4HR WHILE AWAKE NEB NEB Last administered on 01/04/17 13:32; Start 01/04/17 at 08:00 Levalbuterol HCl (Xopenex Neb) 1.25 mg Q2HR NEB PRN NEB SOB/WHEEZING; Start at 21:00 Ipratropium Buford (Atrovent Neb) 0.5 mg Q2HR NEB PRN NEB SOB/WHEEZING Last administered on 01/04/17 03:49; Start 01/03/17 at 21:00 Patient Own Medication PT OWN MED: STIOLTO RESPIMAT-... DAILY INH ; Start at 09:00; Status Hold A/P Problem List: (1) Atrial fibrillation with RVR ICD Code: I48.91 Status: Acute (2) COPD (chronic obstructive pulmonary disease) ICD Code: J44.9 Status: Acute (3) Hypoxia ICD Code: R09.02 Status: Acute (4) Elevated troponin ICD Code: R74.8 Status: Acute (5) CHF (congestive heart failure) ICD Code: I50.9 Status: Acute (6) Hypokalemia ICD Code: E87.6 Status: Acute (7) Hypocalcemia ICD Code: E83.51 Status: Acute (8) Hypomagnesemia ICD Code: E83.42 Status: Acute (9) Leukocytosis ICD Code: D72.829 Status: Acute Assessment and Plan Multifocal atrial tachycardia -Per assisted living associate patient did not have atrial fibrillation. Most likely secondary to lung disease. TSH is 0.26. Will decrease dose of Synthroid since this can cause arrhythmias. Hypokalemia/hypomagnesemia -Now within normal limits. Already replenished. COPD exacerbation/severe chronic objective pulmonary disease -Patient on nebulizer, Solu-Medrol, Levaquin. Chest x-ray was negative for any pneumonia. -Symptomatically patient continues to be short of breath so we will continue her current regimen. Elevated troponins -Mildly elevated. Stable. -Per assisted living associate unlikely ACS. Coronary disease with ischemic cardiomyopathy. -Continue home medication. CHF: - Unknown EF, +mild pedal edema on exam. - BNP 277, CXR w/ no acute findings, images reviewed by me. Check Echo for further eval. Hypothyroidism -Decrease Synthroid dose. Will need a repeat in 6 weeks. DVT Prophylaxis: Was on heparin drip but that was discontinued. Discharge Planning Will need to continue hospitalization due to COPD exacerbation. Kim Zazueta MD January 04, 2017 13:51 recent steroids, on Prednisone 20mg bid at home, however will start empiric treatment for possible Atypical PNA. Recently started Z-michael on Friday, now completed. 9. DVT Prophylaxis: On Heparin gtt 10. Social work for d/c planning as needed. 11. Case discussed w/ ER physician at length. Kim Zazueta MD January 04, 2017 13:51
--- NOTE | 2017-01-04 14:55 | EKG ---
Date Performed: 01/03/2017 Time Performed: 18:27:10 PTAGE: 81 years EKG: Sinus tachycardia with PACs Anterolateral myocardial infarction undetermined age with sligh t ST elevation anterolaterally. Since PREVIOUS TRACING 08/25/2016, heart rate has increased rom 123 to 152 and the PACs are ne w. Anterolateral myocardial infarction findings are basically unchanged. Clinical correlation is edwige mmended. PREVIOUS TRACIN08/25/2016 DOCTOR: Mendoza King Interpretating Date/Time 01/04/2017 14:55:06
--- NOTE | 2017-01-04 14:57 | EKG ---
Date Performed: 01/03/2017 Time Performed: 18:28:02 PTAGE: 81 years EKG: Sinus tachycardia with PACs and PVCs Anterolateral myocardial infarction of undetermined ag e Since PREVIOUS TRACING 01/03/2017, no significant change. PREVIOUS TRACIN01/03/2017 18.27 DOCTOR: Mendoza King Interpretating Date/Time 01/04/2017 14:56:25
--- NOTE | 2017-01-04 14:59 | EKG ---
Date Performed: 01/03/2017 Time Performed: 18:30:48 PTAGE: 81 years EKG: Sinus tachycardia with PACs and runs of PACs Anterolateral myocardial infarction of undeter mined age Since PREVIOUS TRACING of 01/03/2017, PVCs no longer present, there is no significant change. PREVIOUS TRACIN01/03/2017 18.29 DOCTOR: Mendoza King Interpretating Date/Time 01/04/2017 14:59:31
--- NOTE | 2017-01-04 14:59 | EKG ---
Date Performed: 01/03/2017 Time Performed: 18:29:55 PTAGE: 81 years EKG: Sinus tachycardia with PACs and PVCs Anterolateral myocardial infarction of undetermined ag e Since PREVIOUS TRACING on 01/03/2017, there is significant change. PREVIOUS TRACIN 7 18.28 DOCTOR: Mendoza King Interpretating Date/Time 01/04/2017 14:58:04
--- NOTE | 2017-01-04 15:02 | EKG ---
Date Performed: 01/03/2017 Time Performed: 21:17:06 PTAGE: 81 years EKG: Sinus tachycardia with PACs Anterolateral myocardial infarction of undetermined age Since PREVIOUS TRACING on 01/03/2017, heart rate has decreased from around 145 to 100, otherwi se no significant change. PREVIOUS TRACIN01/03/2017 DOCTOR: Mendoza King Interpretating Date/Time 01/04/2017 15:01:20
--- NOTE | 2017-01-04 15:04 | EKG ---
Date Performed: 01/04/2017 Time Performed: 00:02:54 PTAGE: 81 years EKG: Sinus rhythm with PACs Anterolateral wall myocardial infarction of undetermined age Since PREVIOUS TRACING , heart rate has decreased, otherwise no significant change. PREVIOUS TR ACIN01/03/2017 18.30 DOCTOR: Mendoza King Interpretating Date/Time 01/04/2017 15:02:45
[2017-01-04 16:26] LABS: BLOOD GAS BASE EXCESS 13.9 mmol/L (-2-2); BLOOD GAS CARBOXYHEMOGLOBIN 1.4 % (0-4); BLOOD GAS HCO3 39 mmol/L (22-26); BLOOD GAS METHEMOGLOBIN 1.5 % (0-2); BLOOD GAS O2 HGB SATURATION 94 % (90-100); BLOOD GAS OXYGEN CONTENT 17.6 Vol % (12.0-20.0); BLOOD GAS PCO2 65 mmHg (38-42); BLOOD GAS PO2 92 mmHg (61-120); BLOOD GAS TOTAL HGB 13.2 G/DL (12.0-16.0); TEMP CORR TO 98.6
[2017-01-04 16:27] LABS: CRITICAL VALUE YES; DRAW SITE RT RADIAL; LITER FLOW 2 L/M; NUMBER OF ARTERIAL PUNCTURES 1; OXYGEN DEVICE NASAL CANNULA; STAT YES; ULNAR PULSE PRESENT
[2017-01-04] MEDS ORDERED: QUEtiapine FUMARATE 25 MG TAB PO ONE (17:15)
[2017-01-04] MEDS: TAMSULOSIN HCL 0.4 MG CAP PO SCH (20:34)
[2017-01-04] MEDS: LEVOFLOXACIN 750 MG PREMIX INJ 150 ML IV SCH (20:35)
[2017-01-04] MEDS: MELATONIN 5 MG TAB PO PRN (22:22)
[2017-01-05] VITALS (31 sets, daily range): BP systolic 108–136; BP diastolic 68–96; PULSE 100–144; RESP 22–26; TEMP 97.2–98.8; O2SAT 97–99
[2017-01-05] MEDS: methylPREDNISolone SOD SUCC 40 MG/1 ML VIAL IV PUSH SCH ×4 (00:01→17:33)
[2017-01-05 04:51] LABS: HEMATOCRIT 36.8 % (39.0-51.0); MEAN CORPUSCULAR HEMOGLOBIN 31.1 PG (27.0-34.0); MEAN CORPUSCULAR HGB CONC 32.7 % (32.0-36.0); PLATELET COUNT 163 TH/MM3 (150-450); RED BLOOD COUNT 3.87 MIL/MM3 (4.50-5.90); RED CELL DISTRIBUTION WIDTH 13.5 % (11.6-17.2); REVIEW FLAG FINAL; WHITE BLOOD COUNT 14.1 TH/MM3 (4.0-11.0)
[2017-01-05 05:18] LABS: BICARBONATE 42.5 MEQ/L (21.0-32.0); MAGNESIUM 1.8 MG/DL (1.5-2.5); POTASSIUM 4.2 MEQ/L (3.5-5.1)
[2017-01-05] MEDS: LEVOTHYROXINE SODIUM 112 MCG TAB PO SCH (06:48)
[2017-01-05] MEDS: RESP: LEVALBUTEROL HYDROCHLORIDE 1.25 MG/3 ML NEB (SCH) NEB ×4 (07:31→20:08)
[2017-01-05] MEDS: RESP: IPRATROPIUM 0.5 MG/2.5 ML NEB NEB SCH ×4 (07:31→20:08)
[2017-01-05] MEDS: ATORVASTATIN 10 MG TAB PO SCH (09:03)
[2017-01-05] MEDS: ASPIRIN 81 MG CHEW TAB PO SCH (09:03)
[2017-01-05] MEDS: SODIUM CHLORIDE 0.9% FLUSH 10 ML FLUSH IV FLUSH SCH ×2 (09:03→22:01)
[2017-01-05] MEDS: DOCUSATE SODIUM 50 MG/SENNA 8.6 MG TAB PO SCH ×2 (09:03→22:00)
--- NOTE | 2017-01-05 09:41 | PD.CARD.PN ---
Subjective Subjective Remarks The patient has moderate shortness of breath but no other cardiac symptoms, bleeding or GI complaints. Telemetry shows sinus tachycardia/multifocal atrial tachycardia. Echocardiogram shows severe left ventricular dysfunction. Objective Medications Reviewed Vital Signs / I&O Vital Signs Date Time Temp Pulse Resp B/P Pulse Ox O2 Delivery O2 Flow Rate FiO2 01/05/17 07:39 99 Nasal Cannula 2.00 01/05/17 07:30 97.9 120 24 136/96 99 01/05/17 06:40 97.2 104 22 108/68 97 01/05/17 06:00 102 01/05/17 05:15 112 01/05/17 04:00 108 01/05/17 03:00 144 01/05/17 02:00 138 01/05/17 01:00 140 01/05/17 00:00 128 01/04/17 23:00 99.2 133 24 114/76 96 01/04/17 23:00 129 01/04/17 22:00 130 01/04/17 21:00 132 01/04/17 20:00 126 01/04/17 19:00 116 01/04/17 19:00 98.5 126 24 110/77 93 01/04/17 18:00 142 01/04/17 17:00 132 01/04/17 16:00 124 01/04/17 15:30 98.0 144 26 129/94 95 01/04/17 15:21 97 Nasal Cannula 2.00 01/04/17 15:00 115 01/04/17 14:00 110 01/04/17 13:00 104 01/04/17 12:00 98 01/04/17 11:00 98.3 118 24 115/74 98 01/04/17 11:00 98 01/04/17 10:00 100 I/O 01/04/17 01/04/17 01/04/17 01/05/17 01/05/17 01/05/17 07:00 15:00 23:00 07:00 15:00 23:00 Intake Total 240 ml 420 ml 700 ml Output Total 250 ml 450 ml 200 ml Balance -10 ml -30 ml 500 ml Intake Oral 240 ml 420 ml 600 ml IV Total 100 ml Output Urine Total 250 ml 450 ml 200 ml # Bowel Movements 0 0 Physical Exam GENERAL: Well-nourished, well-developed patient in no apparent distress. SKIN: Warm and dry. NECK: JVD normal - less than or equal to 5 cm H20. CARDIOVASCULAR: Regular rate and rhythm without murmurs, gallops, or rubs. RESPIRATORY: Severely decreased breath sounds - equal bilaterally. No accessory muscle use. No wheezes, rales or rubs. PERIPHERY: No cyanosis, or edema. Laboratory Laboratory Tests Test 01/04/17 01/05/17 16:20 04:35 Blood Gas Puncture Site RT RADIAL Blood Gas Patient Temperature 98.6 Blood Gas HCO3 39 mmol/L Blood Gas Base Excess 13.9 mmol/L Blood Gas Oxygen Saturation 94 % Arterial Blood pH 7.40 Arterial Blood Partial 65 mmHg Pressure CO2 Arterial Blood Partial 92 mmHg Pressure O2 Arterial Blood Oxygen Content 17.6 Vol % Arterial Blood 1.4 % Carboxyhemoglobin Arterial Blood Methemoglobin 1.5 % Blood Gas Hemoglobin 13.2 G/DL Oxygen Delivery Device NASAL CANNULA Blood Gas Liter Flow 2 L/M White Blood Count 14.1 TH/MM3 Red Blood Count 3.87 MIL/MM3 Hemoglobin 12.0 GM/DL Hematocrit 36.8 % Mean Corpuscular Volume 95.0 FL Mean Corpuscular Hemoglobin 31.1 PG Mean Corpuscular Hemoglobin 32.7 % Concent Red Cell Distribution Width 13.5 % Platelet Count 163 TH/MM3 Mean Platelet Volume 7.8 FL Sodium Level 138 MEQ/L Potassium Level 4.2 MEQ/L Chloride Level 91 MEQ/L Carbon Dioxide Level 42.5 MEQ/L Anion Gap 5 MEQ/L Blood Urea Nitrogen 23 MG/DL Creatinine 0.74 MG/DL Estimat Glomerular Filtration 102 ML/MIN Rate Random Glucose 132 MG/DL Calcium Level 9.2 MG/DL Magnesium Level 1.8 MG/DL Imaging Last 48 hours Impressions Chest X-Ray 01/03/17 4720 Signed Impressions: Service Date/Time: Tuesday, January 03, 2017 19:07 - CONCLUSION: No acute disease. Ady Morrell Jr., MD Assessment and Plan Assessment and Plan Problems: Severe COPD Multifocal atrial tachycardia Ischemic cardiomyopathy Hypertension Hyperlipidemia Recommendations: Treat underlying COPD DVT prophylaxis I will start the patient on a very low dose of beta blockers. I would continue this is assuming his blood pressure tolerates it. I will be available if needed. He'll need to follow-up with his primary care physician and Dr. Sheets. Дмитрий Luna MD January 05, 2017 09:41
[2017-01-05] MEDS ORDERED: PILL SPLITTER OTHER PRN (10:00)
[2017-01-05] MEDS ORDERED: LACTULOSE SYRUP 20 GM/30 ML CUP PO ONE (10:45)
--- NOTE | 2017-01-05 11:32 | HHI.PR ---
Subjective Remarks Follow-up for COPD Patient continues to be short of breath. He said is very minimal improvement. He is less agitated today. Patient complaint of constipation. He stated that he hasn't had his prune juice which is reason why he had constipation. Patient stated once he has a bowel movement he'll feel less agitated. He is AAO X 3. Patient stated that he is currently seeing Dr. Forte He stated that in the past he saw Dr. Cuevas but does not want to see him anymore. Objective Vitals Vital Signs Date Time Temp Pulse Resp B/P Pulse Ox O2 Delivery O2 Flow Rate FiO2 01/05/17 11:05 112 01/05/17 10:00 120 01/05/17 09:30 122 01/05/17 09:00 100 01/05/17 08:00 120 01/05/17 07:39 99 Nasal Cannula 2.00 01/05/17 07:30 97.9 120 24 136/96 99 01/05/17 07:00 119 01/05/17 06:40 97.2 104 22 108/68 97 01/05/17 06:00 102 01/05/17 05:15 112 01/05/17 04:00 108 01/05/17 03:00 144 01/05/17 02:00 138 01/05/17 01:00 140 01/05/17 00:00 128 01/04/17 23:00 99.2 133 24 114/76 96 01/04/17 23:00 129 01/04/17 22:00 130 01/04/17 21:00 132 01/04/17 20:00 126 01/04/17 19:00 116 01/04/17 19:00 98.5 126 24 110/77 93 01/04/17 18:00 142 01/04/17 17:00 132 01/04/17 16:00 124 01/04/17 15:30 98.0 144 26 129/94 95 01/04/17 15:21 97 Nasal Cannula 2.00 01/04/17 15:00 115 01/04/17 14:00 110 01/04/17 13:00 104 01/04/17 12:00 98 I/O 01/04/17 01/04/17 01/04/17 01/05/17 01/05/17 01/05/17 07:00 15:00 23:00 07:00 15:00 23:00 Intake Total 240 ml 420 ml 700 ml Output Total 250 ml 450 ml 200 ml Balance -10 ml -30 ml 500 ml Intake Oral 240 ml 420 ml 600 ml IV Total 100 ml Output Urine Total 250 ml 450 ml 200 ml # Bowel Movements 0 0 Result Diagram: 01/05/17 0435 01/05/17 0435 Objective Remarks GENERAL: in NAD NECK: Supple, trachea midline. No JVD or lymphadenopathy. CARDIOVASCULAR: Regular rate and rhythm without murmurs, gallops, or rubs. RESPIRATORY: Lung sounds are very distant heart appreciate good lung sounds. No wheezing, crackle or rhonchi appreciated. No accessory muscle use. GASTROINTESTINAL: Abdomen soft, non-tender, nondistended. Medications and IVs Current Medications Morphine Sulfate (Morphine Inj) 2 mg ONCE ONCE IV PUSH Last administered on 19:05; Start 01/03/17 at 18:45; Stop 01/03/17 at 18:46; Status DC Nitroglycerin (Nitroglycerin 2% Oint) 1 inch ONCE ONCE TOP Last administered on 01/03/17 19:06; Start 01/03/17 at 18:45; Stop 01/03/17 at 18:46; Status DC Sodium Chloride (NS Flush) 2 ml UNSCH PRN IVF FLUSH AFTER USING IV ACCESS; Start 01/03/17 at 18:45; Stop 01/03/17 at 21:02; Status DC Metoprolol Tartrate (Lopressor Inj) 5 mg Q5M IVS Last administered on 19:06; Start 01/03/17 at 18:45; Stop 01/03/17 at 18:56; Status DC Heparin Sodium (Porcine) (Heparin Inj) 4,000 units ONCE ONCE IV Last administered on 01/03/17 19:10; Start 01/03/17 at 19:00; Stop 01/04/17 at 13:57 ; Status DC Heparin Sodium (Porcine) (Heparin Inj) 5,000 units UNSCH PRN IV APTT LESS THAN 25; Start 01/04/17 at 01:00; Stop 01/04/17 at 13:57; Status DC Heparin Sodium (Porcine) 2500 units 2,500 units UNSCH PRN IV APTT 25 TO 39; Start 01/04/17 at 01:00; Stop 01/04/17 at 13:57; Status DC Heparin Sodium/ Dextrose (Heparin-D5W Inj) 250 ml @ 0 mls/hr TITRATE IV Last administered on 01/03/17 19:44; Start 01/03/17 at 19:00; Stop 01/04/17 at 13:57 ; Status DC Metoprolol Tartrate (Lopressor) 50 mg ONCE ONCE PO Last administered on 19:50; Start 01/03/17 at 19:30; Stop 01/03/17 at 19:31; Status DC Calcium Chloride 1 gm 1 gm ONCE ONCE IV PUSH Last administered on 01/03/17 20 :42; Start 01/03/17 at 20:30; Stop 01/03/17 at 20:31; Status DC Magnesium Sulfate/ Dextrose (Magnesium Sulfate 1 Gm Premix) 100 ml @ 100 mls/ hr ONCE ONCE IV Last administered on 01/03/17 20:42; Start 01/03/17 at 20:30 ; Stop 01/03/17 at 21:29; Status DC Potassium Chloride 40 meq 40 meq ONCE ONCE PO Last administered on 01/03/17 20:41; Start 01/03/17 at 20:30; Stop 01/03/17 at 20:31; Status DC Potassium Chloride (KCl 10 Meq Premix Inj) 100 ml @ 100 mls/hr ONCE ONCE IV Last administered on 01/03/17 23:01; Start 01/03/17 at 20:30; Stop 01/03/17 at 21:29; Status DC Methylprednisolone Sodium Succinate (SoluMEDROL INJ) 40 mg Q6HR IV PUSH Last administered on 01/05/17 06:48; Start 01/04/17 at 00:00 Albuterol/ Ipratropium (Duoneb Neb) 1 ampule Q4HR WHILE AWAKE NEB NEB ; Start 01/04/17 at 08:00; Status UNV Albuterol/ Ipratropium 1 ampule 1 ampule Q2HR NEB PRN NEB SOB/WHEEZING; Start 01/03/17 at 20:15; Status UNV Levofloxacin/ Dextrose (Levaquin 750 Mg Premix Inj) 150 ml @ 100 mls/hr Q24H IV Last administered on 01/04/17 20:35; Start 01/03/17 at 21:00 Sodium Chloride (NS Flush) 2 ml UNSCH PRN IV FLUSH FLUSH AFTER USING IV ACCESS ; Start 01/03/17 at 20:15 Sodium Chloride (NS Flush) 2 ml BID IV FLUSH Last administered on 01/05/17 09: 03; Start 01/03/17 at 21:00 Ondansetron HCl (Zofran Inj) 4 mg Q6H PRN IVP NAUSEA OR VOMITING; Start at 20:15 Acetaminophen (Tylenol) 650 mg Q6H PRN PO FEVER/PAIN SCALE 1 TO 2; Start at 20:15 Acetaminophen/ Hydrocodone Bitart ([place] 5-325 Mg) 1 tab Q4H PRN PO PAIN SCALE 3 TO 5; Start 01/03/17 at 20:15 Morphine Sulfate (Morphine Inj) 2 mg Q3H PRN IV Pain 6-10 Last administered on 01/03/17 23:55; Start 01/03/17 at 20:15 Senna/Docusate Sodium (Alycia-Colace) 1 tab BID PO Last administered on 09:03; Start 01/03/17 at 21:00 Magnesium Hydroxide (Milk Of Magnesia Liq) 30 ml Q12H PRN PO MILD - MODERATE CONSTIPATION; Start 01/03/17 at 20:15 Sennosides (Senokot) 17.2 mg Q12H PRN PO MODERATE - SEVERE CONSTIPATION; Start 01/03/17 at 20:15 Bisacodyl (Dulcolax Supp) 10 mg DAILY PRN RECTAL SEVERE CONSITIPATION; Start at 20:15 Lactulose (Lactulose Liq) 30 ml DAILY PRN PO SEVERE CONSITIPATION; Start at 20:15 Aspirin (Aspirin Chew) 81 mg DAILY PO Last administered on 01/05/17 09:03; Start 01/04/17 at 09:00 Levothyroxine Sodium (Synthroid) 125 mcg DAILY@06 PO Last administered on 05:54; Start 01/04/17 at 06:00; Stop 01/04/17 at 13:57; Status DC Tamsulosin HCl (Flomax) 0.4 mg HS PO Last administered on 01/04/17 20:34; Start 01/03/17 at 21:00 Non-Formulary Medication 5 mg DAILY PO CM; Start 01/04/17 at 09:00; Stop at 09:00; Status DC Non-Formulary Medication 2 puff DAILY INH COPD; Start 01/04/17 at 09:00; Status UNV Atorvastatin Calcium (Lipitor) 10 mg DAILY PO Last administered on 01/05/17 09 :03; Start 01/04/17 at 09:00 Levalbuterol HCl (Xopenex Neb) 1.25 mg Q4HR WHILE AWAKE NEB NEB Last administered on 01/05/17 11:28; Start 01/04/17 at 08:00 Ipratropium [place] (Atrovent Neb) 0.5 mg Q4HR WHILE AWAKE NEB NEB Last administered on 01/05/17 11:28; Start 01/04/17 at 08:00 Levalbuterol HCl (Xopenex Neb) 1.25 mg Q2HR NEB PRN NEB SOB/WHEEZING; Start at 21:00 Ipratropium [place] (Atrovent Neb) 0.5 mg Q2HR NEB PRN NEB SOB/WHEEZING Last administered on 01/04/17 03:49; Start 01/03/17 at 21:00 Patient Own Medication PT OWN MED: STIOLTO RESPIMAT-... DAILY INH ; Start at 09:00; Status Hold Levothyroxine Sodium (Synthroid) 112 mcg DAILY@0600 PO Last administered on 06:48; Start 01/05/17 at 06:00 Quetiapine Fumarate (SEROquel) 25 mg ONCE ONCE PO Last administered on 20:34; Start 01/04/17 at 17:15; Stop 01/04/17 at 17:16; Status DC Melatonin (Melatonin) 5 mg HS PRN PO INSOMNIA Last administered on 01/04/17 22 :22; Start 01/04/17 at 22:00 Metoprolol Tartrate (Lopressor) 12.5 mg Q12HR PO ; Start 01/05/17 at 10:00 Miscellaneous (Pill Splitter) 1 ea UNSCH PRN OTHER SEE LABEL COMMENTS; Start at 10:00 Lactulose (Lactulose Liq) 30 ml ONCE ONCE PO ; Start 01/05/17 at 10:45; Stop at 10:46; Status DC A/P Problem List: (1) Atrial fibrillation with RVR ICD Code: I48.91 Status: Acute (2) COPD (chronic obstructive pulmonary disease) ICD Code: J44.9 Status: Acute (3) Hypoxia ICD Code: R09.02 Status: Acute (4) Elevated troponin ICD Code: R74.8 Status: Acute (5) CHF (congestive heart failure) ICD Code: I50.9 Status: Acute (6) Hypokalemia ICD Code: E87.6 Status: Acute (7) Hypocalcemia ICD Code: E83.51 Status: Acute (8) Hypomagnesemia ICD Code: E83.42 Status: Acute (9) Leukocytosis ICD Code: D72.829 Status: Acute Assessment and Plan Multifocal atrial tachycardia -Per [employer] patient did not have atrial fibrillation. Most likely secondary to lung disease. -TSH is 0.26. Synthroid doses which these crease. Hypokalemia/hypomagnesemia -Now within normal limits. Already replenished. COPD exacerbation/severe chronic objective pulmonary disease -Patient on nebulizer, Solu-Medrol, Levaquin. Chest x-ray was negative for any pneumonia. -Symptomatically patient continues to be short of breath so we will continue her current regimen. -I'm suspecting most likely this is more due to end-stage COPD. Will consult his laboratory worker. Most likely poor prognosis. Patient and wants to continue with full code and declined hospice. Although patient did decline BiPAP. Elevated troponins -Mildly elevated. Stable. -Per business manager [employer] or [employer] unlikely ACS. Coronary disease with ischemic cardiomyopathy. -Continue home medication. CHF: - Unknown EF, +mild pedal edema on exam. - BNP 277, CXR w/ no acute findings, images reviewed by me. Check Echo for further eval. Hypothyroidism -Decrease Synthroid dose. Will need a repeat in 6 weeks. DVT Prophylaxis: Was on heparin drip but that was discontinued. Discharge Planning Patient continues to be symptomatic. I think this is more due to a end-stage COPD. Will consult his laboratory worker. Kim Zazueta MD January 05, 2017 11:32
[2017-01-05] MEDS: METOPROLOL TARTRATE 25 MG TAB PO SCH ×2 (12:42→22:00)
[2017-01-05 16:23] LABS: BICARBONATE 43.2 MEQ/L (21.0-32.0); POTASSIUM 4.4 MEQ/L (3.5-5.1)
--- NOTE | 2017-01-05 17:58 | MB ---
cc: [facility] DATE OF CONSULTATION 01/05/[address] Kim Zazueta REASON FOR CONSULTATION COPD exacerbation. PRESENT ILLNESS Mr. Haywood is a pleasant 81-year-old white male with longstanding history of COPD, is oxygen dependent and steroid dependent, takes prednisone 10 milligrams twice a day. He recently had a sleep study done and he was prescribed C-PAP. He is not using it because he is concerned that he will lose his oxygen if he uses the C-PAP machine. Over the last few days he has not been feeling well. He has had increasing shortness of breath, feels tightness in the chest. Did not have any pain. Did not have palpitation. Initially, it was noted that he has a-fib which was noted. He does not have a-fib. He had a workup done in the hospital. His blood gas shows pH 7.40, pCO2 65, pO2 92, bicarb 39 on 2 liters nasal cannula. WBC count 14.1, hematocrit 12.0, hematocrit 36.8, MCV 94, platelet count 163, sodium 114, potassium 4.4, chloride 92, CO2 43, BUN 25, creatinine 0.89. His chest x-ray shows no acute disease. PAST MEDICAL HISTORY His past medical history is significant for longstanding history of COPD, oxygen dependence and steroid dependent, sleep apnea, hypertension. MEDICATIONS He is currently takin. Metoprolol 12.5 milligrams q. 12 hours. 2. Synthroid 112 micrograms a day. 3. Melatonin 5 milligrams a day. 4. Aspirin 81 milligrams day. 5. Lipitor 10 milligrams a day. 6. Xopenex nebulizer treatment. 7. Atrovent nebulizer treatment. 8. Solu-Medrol 40 milligrams q. 6 hours. 9. Levaquin 750 milligrams a day. 10. Flomax 0.4 milligrams a day. ALLERGIES NO KNOWN DRUG ALLERGIES. SOCIAL HISTORY He is . 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 He has a history of smoking which he quit. FAMILY HISTORY He has children. REVIEW OF SYSTEMS He walks only short distance and even little activity makes him short of breath, not able to bring up phlegm. No DVT or pulmonary embolism. No seizure, stroke or epilepsy. PHYSICAL EXAMINATION GENERAL: An elderly male, short of breath even at rest. VITAL SIGNS: Blood pressure 122/72, heart rate 106, respirations 22, temperature 98.2. HEENT: Examination of the pupils are equal and reactive. Oral mucosa, nasal mucosa normal. NECK: Supple. JVP not raised. CHEST: He has hyperresonant chest with decreased chest excursion and decreased chest movement. Minimal rhonchi. CARDIOVASCULAR: S1-S2 normal. ABDOMEN: Benign. EXTREMITIES: No edema. IMPRESSION 1. COPD exacerbation. 2. Hypercapnic respiratory failure. He has compensated respiratory acidosis. 3. Sleep apnea. 4. Coronary disease. 5. Ischemic cardiomyopathy. PLAN I discussed with the patient and his . I will start him on C-PAP 05/15 and titrate oxygen to keep the saturation between 88 and 92%. Continue Solu-Medrol, IV antibiotic, aerosol treatments. Further treatment will depend on the course in the hospital. Thank you Dr. Kim Zazueta. MD YURIDIA King/JAREN /5:34 PM /5:41 PM
[2017-01-05] MEDS: TAMSULOSIN HCL 0.4 MG CAP PO SCH (22:00)
[2017-01-05] MEDS: MELATONIN 5 MG TAB PO PRN (22:00)
[2017-01-05] MEDS: LEVOFLOXACIN 750 MG PREMIX INJ 150 ML IV SCH (22:01)
[2017-01-06] VITALS (27 sets, daily range): BP systolic 90–150; BP diastolic 63–97; PULSE 83–133; RESP 20–26; TEMP 96.5–98.2; O2SAT 92–98
[2017-01-06] MEDS ORDERED: TEMAZEPAM 7.5 MG CAP PO ONE (01:30)
[2017-01-06] MEDS: methylPREDNISolone SOD SUCC 40 MG/1 ML VIAL IV PUSH SCH ×4 (06:44→17:11)
[2017-01-06] MEDS: LEVOTHYROXINE SODIUM 112 MCG TAB PO SCH (06:44)
[2017-01-06] MEDS: ASPIRIN 81 MG CHEW TAB PO SCH (08:22)
[2017-01-06] MEDS: METOPROLOL TARTRATE 25 MG TAB PO SCH ×2 (08:23→20:43)
[2017-01-06] MEDS: ATORVASTATIN 10 MG TAB PO SCH (08:23)
[2017-01-06] MEDS: DOCUSATE SODIUM 50 MG/SENNA 8.6 MG TAB PO SCH ×2 (08:24→20:42)
[2017-01-06] MEDS: SODIUM CHLORIDE 0.9% FLUSH 10 ML FLUSH IV FLUSH SCH ×2 (08:26→20:43)
[2017-01-06 08:30] LABS: HEMATOCRIT 36.5 % (39.0-51.0); MEAN CORPUSCULAR HEMOGLOBIN 31.6 PG (27.0-34.0); MEAN CORPUSCULAR HGB CONC 33.3 % (32.0-36.0); PLATELET COUNT 152 TH/MM3 (150-450); RED BLOOD COUNT 3.84 MIL/MM3 (4.50-5.90); RED CELL DISTRIBUTION WIDTH 13.4 % (11.6-17.2); REVIEW FLAG FINAL; WHITE BLOOD COUNT 13.5 TH/MM3 (4.0-11.0)
[2017-01-06] MEDS: RESP: IPRATROPIUM 0.5 MG/2.5 ML NEB NEB SCH ×4 (08:41→20:57)
[2017-01-06] MEDS: RESP: LEVALBUTEROL HYDROCHLORIDE 1.25 MG/3 ML NEB (SCH) NEB ×4 (08:42→20:57)
--- NOTE | 2017-01-06 11:03 | HHI.PR ---
Subjective Remarks Follow-up for COPD exacerbation Patient continues a shortness of breathing. Denies any cough. Patient and is asking for hospice consult. Patient surfaces are at the bedside during conversation. Otherwise no acute events. RT at bedside in regards to BiPAP. Objective Vitals Vital Signs Date Time Temp Pulse Resp B/P Pulse Ox O2 Delivery O2 Flow Rate FiO2 01/06/17 10:22 102 01/06/17 09:00 124 01/06/17 08:43 94 Nasal Cannula 3.00 01/06/17 08:00 97.9 110 24 101/67 97 01/06/17 08:00 110 01/06/17 07:00 100 01/06/17 06:00 100 01/06/17 05:00 112 01/06/17 03:39 103 01/06/17 03:00 102 01/06/17 03:00 98.1 101 24 110/68 96 01/06/17 02:00 106 01/06/17 01:00 112 01/06/17 00:00 106 01/05/17 23:00 98.2 122 24 126/88 97 01/05/17 23:00 114 01/05/17 22:00 124 01/05/17 21:00 134 01/05/17 20:00 114 01/05/17 19:00 113 01/05/17 19:00 98.8 115 26 122/72 98 01/05/17 18:09 116 01/05/17 17:00 109 01/05/17 16:00 106 01/05/17 15:32 98 21 01/05/17 15:30 98.2 106 22 122/72 98 01/05/17 15:00 106 01/05/17 14:00 104 01/05/17 13:13 122 01/05/17 12:00 112 01/05/17 11:05 112 I/O 01/05/17 01/05/17 01/05/17 01/06/17 01/06/17 01/06/17 07:00 15:00 23:00 07:00 15:00 23:00 Intake Total 700 ml 460 ml 390 ml Output Total 200 ml 450 ml 200 ml Balance 500 ml 10 ml 190 ml Intake Oral 600 ml 460 ml 240 ml IV Total 100 ml 150 ml Output Urine Total 200 ml 450 ml 200 ml # Bowel Movements 1 1 Result Diagram: 01/06/17 0743 01/05/17 1528 Objective Remarks GENERAL: in NAD NECK: Supple, trachea midline. No JVD or lymphadenopathy. CARDIOVASCULAR: Regular rate and rhythm without murmurs, gallops, or rubs. RESPIRATORY: Lung sounds are very distant heart appreciate good lung sounds. No wheezing, crackle or rhonchi appreciated. No accessory muscle use. GASTROINTESTINAL: Abdomen soft, non-tender, nondistended. Medications and IVs Current Medications Morphine Sulfate (Morphine Inj) 2 mg ONCE ONCE IV PUSH Last administered on 19:05; Start 01/03/17 at 18:45; Stop 01/03/17 at 18:46; Status DC Nitroglycerin (Nitroglycerin 2% Oint) 1 inch ONCE ONCE TOP Last administered on 01/03/17 19:06; Start 01/03/17 at 18:45; Stop 01/03/17 at 18:46; Status DC Sodium Chloride (NS Flush) 2 ml UNSCH PRN IVF FLUSH AFTER USING IV ACCESS; Start 01/03/17 at 18:45; Stop 01/03/17 at 21:02; Status DC Metoprolol Tartrate (Lopressor Inj) 5 mg Q5M IVS Last administered on 19:06; Start 01/03/17 at 18:45; Stop 01/03/17 at 18:56; Status DC Heparin Sodium (Porcine) (Heparin Inj) 4,000 units ONCE ONCE IV Last administered on 01/03/17 19:10; Start 01/03/17 at 19:00; Stop 01/04/17 at 13:57 ; Status DC Heparin Sodium (Porcine) (Heparin Inj) 5,000 units UNSCH PRN IV APTT LESS THAN 25; Start 01/04/17 at 01:00; Stop 01/04/17 at 13:57; Status DC Heparin Sodium (Porcine) 2500 units 2,500 units UNSCH PRN IV APTT 25 TO 39; Start 01/04/17 at 01:00; Stop 01/04/17 at 13:57; Status DC Heparin Sodium/ Dextrose (Heparin-D5W Inj) 250 ml @ 0 mls/hr TITRATE IV Last administered on 01/03/17 19:44; Start 01/03/17 at 19:00; Stop 01/04/17 at 13:57 ; Status DC Metoprolol Tartrate (Lopressor) 50 mg ONCE ONCE PO Last administered on 19:50; Start 01/03/17 at 19:30; Stop 01/03/17 at 19:31; Status DC Calcium Chloride 1 gm 1 gm ONCE ONCE IV PUSH Last administered on 01/03/17 20 :42; Start 01/03/17 at 20:30; Stop 01/03/17 at 20:31; Status DC Magnesium Sulfate/ Dextrose (Magnesium Sulfate 1 Gm Premix) 100 ml @ 100 mls/ hr ONCE ONCE IV Last administered on 01/03/17 20:42; Start 01/03/17 at 20:30 ; Stop 01/03/17 at 21:29; Status DC Potassium Chloride 40 meq 40 meq ONCE ONCE PO Last administered on 01/03/17 20:41; Start 01/03/17 at 20:30; Stop 01/03/17 at 20:31; Status DC Potassium Chloride (KCl 10 Meq Premix Inj) 100 ml @ 100 mls/hr ONCE ONCE IV Last administered on 01/03/17 23:01; Start 01/03/17 at 20:30; Stop 01/03/17 at 21:29; Status DC Methylprednisolone Sodium Succinate (SoluMEDROL INJ) 40 mg Q6HR IV PUSH Last administered on 01/06/17 06:44; Start 01/04/17 at 00:00 Albuterol/ Ipratropium (Duoneb Neb) 1 ampule Q4HR WHILE AWAKE NEB NEB ; Start 01/04/17 at 08:00; Status UNV Albuterol/ Ipratropium 1 ampule 1 ampule Q2HR NEB PRN NEB SOB/WHEEZING; Start 01/03/17 at 20:15; Status UNV Levofloxacin/ Dextrose (Levaquin 750 Mg Premix Inj) 150 ml @ 100 mls/hr Q24H IV Last administered on 01/05/17 22:01; Start 01/03/17 at 21:00 Sodium Chloride (NS Flush) 2 ml UNSCH PRN IV FLUSH FLUSH AFTER USING IV ACCESS ; Start 01/03/17 at 20:15 Sodium Chloride (NS Flush) 2 ml BID IV FLUSH Last administered on 01/06/17 08: 26; Start 01/03/17 at 21:00 Ondansetron HCl (Zofran Inj) 4 mg Q6H PRN IVP NAUSEA OR VOMITING; Start at 20:15 Acetaminophen (Tylenol) 650 mg Q6H PRN PO FEVER/PAIN SCALE 1 TO 2; Start at 20:15 Acetaminophen/ Hydrocodone Bitart ([place] 5-325 Mg) 1 tab Q4H PRN PO PAIN SCALE 3 TO 5; Start 01/03/17 at 20:15 Morphine Sulfate (Morphine Inj) 2 mg Q3H PRN IV Pain 6-10 Last administered on 01/03/17 23:55; Start 01/03/17 at 20:15 Senna/Docusate Sodium (Alycia-Colace) 1 tab BID PO Last administered on 22:00; Start 01/03/17 at 21:00 Magnesium Hydroxide (Milk Of Magnesia Liq) 30 ml Q12H PRN PO MILD - MODERATE CONSTIPATION; Start 01/03/17 at 20:15 Sennosides (Senokot) 17.2 mg Q12H PRN PO MODERATE - SEVERE CONSTIPATION; Start 01/03/17 at 20:15 Bisacodyl (Dulcolax Supp) 10 mg DAILY PRN RECTAL SEVERE CONSITIPATION; Start at 20:15 Lactulose (Lactulose Liq) 30 ml DAILY PRN PO SEVERE CONSITIPATION; Start at 20:15 Aspirin (Aspirin Chew) 81 mg DAILY PO Last administered on 01/06/17 08:22; Start 01/04/17 at 09:00 Levothyroxine Sodium (Synthroid) 125 mcg DAILY@06 PO Last administered on 05:54; Start 01/04/17 at 06:00; Stop 01/04/17 at 13:57; Status DC Tamsulosin HCl (Flomax) 0.4 mg HS PO Last administered on 01/05/17 22:00; Start 01/03/17 at 21:00 Non-Formulary Medication 5 mg DAILY PO CM; Start 01/04/17 at 09:00; Stop at 09:00; Status DC Non-Formulary Medication 2 puff DAILY INH COPD; Start 01/04/17 at 09:00; Status UNV Atorvastatin Calcium (Lipitor) 10 mg DAILY PO Last administered on 01/06/17 08 :23; Start 01/04/17 at 09:00 Levalbuterol HCl (Xopenex Neb) 1.25 mg Q4HR WHILE AWAKE NEB NEB Last administered on 01/06/17 08:42; Start 01/04/17 at 08:00 Ipratropium [place] (Atrovent Neb) 0.5 mg Q4HR WHILE AWAKE NEB NEB Last administered on 01/06/17 08:41; Start 01/04/17 at 08:00 Levalbuterol HCl (Xopenex Neb) 1.25 mg Q2HR NEB PRN NEB SOB/WHEEZING Last administered on 01/06/17 01:05; Start 01/03/17 at 21:00 Ipratropium [place] (Atrovent Neb) 0.5 mg Q2HR NEB PRN NEB SOB/WHEEZING Last administered on 01/04/17 03:49; Start 01/03/17 at 21:00 Patient Own Medication PT OWN MED: STIOLTO RESPIMAT-... DAILY INH ; Start at 09:00; Status Hold Levothyroxine Sodium (Synthroid) 112 mcg DAILY@0600 PO Last administered on 06:44; Start 01/05/17 at 06:00 Quetiapine Fumarate (SEROquel) 25 mg ONCE ONCE PO Last administered on 20:34; Start 01/04/17 at 17:15; Stop 01/04/17 at 17:16; Status DC Melatonin (Melatonin) 5 mg HS PRN PO INSOMNIA Last administered on 01/05/17 22 :00; Start 01/04/17 at 22:00 Metoprolol Tartrate (Lopressor) 12.5 mg Q12HR PO Last administered on 08:23; Start 01/05/17 at 10:00 Miscellaneous (Pill Splitter) 1 ea UNSCH PRN OTHER SEE LABEL COMMENTS; Start at 10:00 Lactulose (Lactulose Liq) 30 ml ONCE ONCE PO Last administered on 01/05/17 11 :30; Start 01/05/17 at 10:45; Stop 01/05/17 at 10:46; Status DC Temazepam (Restoril) 7.5 mg ONCE ONCE PO Last administered on 01/06/17t 01:28 ; Start 01/06/17 at 01:30; Stop 01/06/17 at 01:31; Status DC A/P Problem List: (1) Atrial fibrillation with RVR ICD Code: I48.91 Status: Acute (2) COPD (chronic obstructive pulmonary disease) ICD Code: J44.9 Status: Acute (3) Hypoxia ICD Code: R09.02 Status: Acute (4) Elevated troponin ICD Code: R74.8 Status: Acute (5) CHF (congestive heart failure) ICD Code: I50.9 Status: Acute (6) Hypokalemia ICD Code: E87.6 Status: Acute (7) Hypocalcemia ICD Code: E83.51 Status: Acute (8) Hypomagnesemia ICD Code: E83.42 Status: Acute (9) Leukocytosis ICD Code: D72.829 Status: Acute Assessment and Plan Multifocal atrial tachycardia -Per director intelligence analysis programs patient did not have atrial fibrillation. Most likely secondary to lung disease. -TSH is 0.26. Synthroid doses which these crease. Hypokalemia/hypomagnesemia -Now within normal limits. Already replenished. COPD exacerbation/severe chronic objective pulmonary disease/Hypercapnic respiratory failure with compensated respiratory acidosis -Patient on nebulizer, Solu-Medrol, Levaquin. Chest x-ray was negative for any pneumonia. -Symptomatically patient continues to be short of breath so we will continue her current regimen. -Director Of Reservations consulted recommended trial of BiPAP. Goal oxygen saturation is 88% to 92. Elevated troponins -Mildly elevated. Stable. -Per director intelligence analysis programs unlikely ACS. Coronary disease with ischemic cardiomyopathy. -Continue home medication. CHF: - Unknown EF, +mild pedal edema on exam. - BNP 277, CXR w/ no acute findings, images reviewed by me. Check Echo for further eval. Hypothyroidism -Decrease Synthroid dose. Will need a repeat in 6 weeks. DVT Prophylaxis: Was on heparin drip but that was discontinued. Discharge Planning Poor prognosis. Patient continues to be symptomatic. Consult for hospice place. Kim Zazueta MD January 06, 2017 11:03 Kim Zazueta MD January 06, 2017 11:03
--- NOTE | 2017-01-06 16:45 | HHI.PR ---
Subjective Remarks 81 YOWM with COPD, GENARO,Resp insuff Breathing better Used CPAP, helps No CP at BS Objective Vital Signs Vital Signs Date Time Temp Pulse Resp B/P Pulse Ox O2 Delivery O2 Flow Rate FiO2 01/06/17 16:03 114 01/06/17 15:36 92 Nasal Cannula 3.00 01/06/17 15:35 Bi-Pap 01/06/17 15:00 110 01/06/17 15:00 98.2 110 24 102/83 92 01/06/17 14:10 113 01/06/17 13:04 Bi-Pap 01/06/17 13:03 104 01/06/17 12:32 93 6.00 01/06/17 12:22 83 24 90/63 94 01/06/17 12:00 108 01/06/17 11:00 96 01/06/17 10:30 92 Bi-Pap 6.00 21 01/06/17 10:22 102 01/06/17 09:00 124 01/06/17 08:43 94 Nasal Cannula 3.00 01/06/17 08:00 97.9 110 24 101/67 97 01/06/17 08:00 110 01/06/17 07:00 100 01/06/17 06:00 100 01/06/17 05:00 112 01/06/17 03:39 103 01/06/17 03:00 102 01/06/17 03:00 98.1 101 24 110/68 96 01/06/17 02:00 106 01/06/17 01:00 112 01/06/17 00:00 106 01/05/17 23:00 98.2 122 24 126/88 97 01/05/17 23:00 114 01/05/17 22:00 124 01/05/17 21:00 134 01/05/17 20:00 114 01/05/17 19:00 113 01/05/17 19:00 98.8 115 26 122/72 98 01/05/17 18:09 116 01/05/17 17:00 109 I/O 01/05/17 01/05/17 01/05/17 01/06/17 01/06/17 01/06/17 06:59 14:59 22:59 06:59 14:59 22:59 Intake Total 700 ml 460 ml 390 ml Output Total 200 ml 450 ml 200 ml Balance 500 ml 10 ml 190 ml Intake Oral 600 ml 460 ml 240 ml IV Total 100 ml 150 ml Output Urine Total 200 ml 450 ml 200 ml # Bowel Movements 1 1 Result Diagram: 01/06/17 0743 01/05/17 1528 Objective Remarks GENERAL: Elderly WM, mild sob SKIN: Warm and dry. HEAD: Normocephalic. EYES: No scleral icterus. No injection or drainage. NECK: Supple, trachea midline. No JVD or lymphadenopathy. CARDIOVASCULAR: Regular rate and rhythm without murmurs, gallops, or rubs. RESPIRATORY: Breath sounds equal bilaterally. No accessory muscle use. Decreased chest excursion GASTROINTESTINAL: Abdomen soft, non-tender, nondistended. MUSCULOSKELETAL: No cyanosis, or edema. BACK: Nontender without obvious deformity. No CVA tenderness. A/P Assessment and Plan COPD Exac GENARO Hypercapnoic resp insuff CAD CMP PLAN: DW Pt and CPAP at night and PRN IV Solumedrol Aerosol nebs Cont Abx Brett Cuevas MD January 06, 2017 16:45
[2017-01-06] MEDS: MELATONIN 5 MG TAB PO PRN (20:42)
[2017-01-06] MEDS: TAMSULOSIN HCL 0.4 MG CAP PO SCH (20:42)
[2017-01-06] MEDS: LEVOFLOXACIN 750 MG PREMIX INJ 150 ML IV SCH (20:42)
[2017-01-07] VITALS (30 sets, daily range): BP systolic 108–139; BP diastolic 74–94; PULSE 90–158; RESP 22–24; TEMP 96.2–98.5; O2SAT 92–99
[2017-01-07] MEDS: methylPREDNISolone SOD SUCC 40 MG/1 ML VIAL IV PUSH SCH ×4 (05:56→17:19)
[2017-01-07] MEDS: LEVOTHYROXINE SODIUM 112 MCG TAB PO SCH (05:56)
--- NOTE | 2017-01-07 06:26 | HHI.PR ---
Blank section for building Received call from RN that patient fell found on left side with abrasion to left moravian, left shoulder, left elbow, left hip and left knee. CT head, x-ray of left shoulder, left elbow, left hip/pelvis and left knee ordered and pending add fall precautions Discussed with RN and Luh Boyd January 07, 2017 06:26
[2017-01-07] MEDS ORDERED: EPINEPHrine HCL (1:10,000) 1 MG/10 ML SYRINGE ONE (07:08)
[2017-01-07] MEDS ORDERED: ATROPINE SULFATE 1 MG/10 ML SYRINGE ONE (07:08)
[2017-01-07] MEDS: RESP: IPRATROPIUM 0.5 MG/2.5 ML NEB NEB SCH ×3 (07:57→20:38)
[2017-01-07] MEDS: RESP: LEVALBUTEROL HYDROCHLORIDE 1.25 MG/3 ML NEB (SCH) NEB ×3 (07:58→20:38)
--- NOTE | 2017-01-07 08:15 | RADRPT ---
EXAM DATE/TIME: 01/07/2017 07:35 [facility] COMPARISON: No previous studies available for comparison. INDICATIONS : Left knee pain and swelling; fall last night. MEDICAL HISTORY : None. SURGICAL HISTORY : None. ENCOUNTER: Initial ACUITY: 1 day PAIN SCORE: 6/10 LOCATION: Left knee FINDINGS: 4 views of the left knee demonstrate undermineralization of the bones. No fracture or dislocation is identified. There are a moderate to large tricompartmental osteophytes with large bulky osteophytes a t the superior pole of the patella. There is a joint effusion present. Severe medial joint space narr owing is present. There are potential loose bodies in the posterior aspect of the knee. No soft tissu e abnormality or radiopaque foreign body is identified. CONCLUSION: 1. No acute left knee abnormality is identified. The bones are undermineralized. 2. Severe tricompartmental osteoarthritis with severe medial and patellofemoral joint space narrowing . A small joint effusion is present. Murray Dalton MD on January 07, 2017 at 8:11 Board Certified Radiologist. This report was verified electronically.
--- NOTE | 2017-01-07 08:18 | RADRPT ---
EXAM DATE/TIME: 01/07/2017 07:23 [facility] COMPARISON: No previous studies available for comparison. INDICATIONS : Patient fell last night, hit head RADIATION DOSE: 42.02 CTDIvol (mGy) MEDICAL HISTORY : Cardiovascular disease. Hypertension. SURGICAL HISTORY : None. ENCOUNTER: Initial ACUITY: 1 day PAIN SCALE: 0/10 LOCATION: cranial TECHNIQUE: Multiple contiguous axial images were obtained of the head. Using automated exposure control and adj ustment of the mA and/or kV according to patient size, radiation dose was kept as low as reasonably a chievable to obtain optimal diagnostic quality images. FINDINGS: CEREBRUM: There is generalized cerebral atrophy. Ventricles are normal in size. There is mild periventricular w belen matter low attenuation. Basal ganglia calcification is present. No evidence of midline shift, m ass lesion, hemorrhage or acute infarction. No extra-axial fluid collections are seen. POSTERIOR FOSSA: The cerebellum and brainstem demonstrate no acute finding. The 4th ventricle is midline. The cerebe llopontine angle is unremarkable. EXTRACRANIAL: Sinuses demonstrate no acute abnormality. SKULL: The calvaria is intact. No evidence of skull fracture. CONCLUSION: 1. No acute intracranial abnormality is identified. 2. Age-appropriate related to chronic changes include generalized atrophy and mild periventricular wh ite matter low attenuation characteristic of chronic microvascular ischemia. Murray Dalton MD on January 07, 2017 at 8:14 Board Certified Radiologist. This report was verified electronically.
--- NOTE | 2017-01-07 08:20 | RADRPT ---
EXAM DATE/TIME: 01/07/2017 07:30 [facility] COMPARISON: No previous studies available for comparison. INDICATIONS : Left hip pain; fall lastnight. MEDICAL HISTORY : None. SURGICAL HISTORY : None. ENCOUNTER: Initial ACUITY: 1 day PAIN SCORE: 5/10 LOCATION: Left hip. FINDINGS: AP view of the pelvis with 2 views of the left hip demonstrate undermineralization of the bones. No f racture or dislocation is identified. Pelvic bones demonstrate no acute finding. No soft tissue abnor mality or radiopaque foreign body is identified. There is degenerative disc disease at L3-L4 and L4-L 5. CONCLUSION: No acute pelvis or hip joint abnormality is identified. The bones are undermineralized. Murray Dalton MD on January 07, 2017 at 8:17 Board Certified Radiologist. This report was verified electronically.
--- NOTE | 2017-01-07 09:02 | RADRPT ---
EXAM DATE/TIME: 01/07/2017 07:39 [facility] COMPARISON: No previous studies available for comparison. INDICATIONS : Left shoulder pain; fall lastnight. MEDICAL HISTORY : None. SURGICAL HISTORY : None. ENCOUNTER: Initial ACUITY: 1 day PAIN SCORE: 5/10 LOCATION: Left shoulder. FINDINGS: Multiple view examination of the left shoulder demonstrates no evidence of fracture or dislocation. The glenohumeral and acromioclavicular joints are maintained. There is normal range of motion betwee n internal and external rotation. Bony mineralization is normal. Few small calcifications are seen a djacent to the greater tuberosity. CONCLUSION: 1. No acute fracture joint dislocation. 2. Calcific tendinitis. Joey Aguila MD on January 07, 2017 at 9:00 Board Certified Radiologist. This report was verified electronically.
--- NOTE | 2017-01-07 09:03 | RADRPT ---
EXAM DATE/TIME: 01/07/2017 07:45 [facility] COMPARISON: No previous studies available for comparison. INDICATIONS : Left elbow pain and skin tears; fall lastnight. MEDICAL HISTORY : None. SURGICAL HISTORY : None. ENCOUNTER: Initial ACUITY: 1 day PAIN SCORE: 4/10 LOCATION: Left elbow. FINDINGS: Multiple view examination of the left elbow demonstrates no soft tissue swelling, joint effusion, or fracture. The osseous structures are in normal alignment. Bony mineralization is normal. CONCLUSION: Unremarkable exam. Joey Aguila MD on January 07, 2017 at 9:01 Board Certified Radiologist. This report was verified electronically.
[2017-01-07] MEDS: METOPROLOL TARTRATE 25 MG TAB PO SCH ×2 (09:31→21:33)
[2017-01-07] MEDS: SODIUM CHLORIDE 0.9% FLUSH 10 ML FLUSH IV FLUSH SCH ×2 (09:31→21:36)
[2017-01-07] MEDS: ATORVASTATIN 10 MG TAB PO SCH (09:31)
[2017-01-07] MEDS: ASPIRIN 81 MG CHEW TAB PO SCH (09:31)
[2017-01-07] MEDS: DOCUSATE SODIUM 50 MG/SENNA 8.6 MG TAB PO SCH ×2 (09:32→21:36)
[2017-01-07] MEDS: ACETAMINOPHEN 325 MG TAB PO PRN ×2 (09:33→13:38)
--- NOTE | 2017-01-07 12:38 | HHI.PR ---
Subjective Remarks Follow-up for COPD and fall. Patient continues to feel short of breath. Last night he try to get had a fall. Patient stated that he has been fine so far. He denies any pain. He stated that he tolerated Tylenol. Patient and his nurse at the bedside. Patient stated that he is ready to go and that he really doesn't want anything done but he stated that he wants to do whatever his wants him to do. Patient continues to have shortness of breathing and intermittently confused. At the moment he is not confused. Objective Vitals Vital Signs Date Time Temp Pulse Resp B/P Pulse Ox O2 Delivery O2 Flow Rate FiO2 01/07/17 11:08 96 Nasal Cannula 2.00 01/07/17 06:40 97.9 105 24 134/91 97 01/07/17 06:00 114 01/07/17 05:00 104 01/07/17 03:00 114 01/07/17 03:00 96.2 111 24 134/91 95 01/07/17 02:00 104 01/07/17 01:05 99 6.00 01/07/17 01:00 118 01/07/17 00:00 136 01/06/17 23:00 117 01/06/17 23:00 96.5 114 24 118/89 98 01/06/17 22:00 122 01/06/17 21:00 94 6.00 01/06/17 21:00 128 01/06/17 21:00 94 BiPAP 6.00 01/06/17 20:00 124 01/06/17 19:00 97 Bi-Pap 5.00 21 01/06/17 19:00 123 01/06/17 19:00 97.8 128 26 115/75 93 01/06/17 18:08 133 01/06/17 17:04 123 01/06/17 16:03 114 01/06/17 15:36 92 Nasal Cannula 3.00 01/06/17 15:35 Bi-Pap 01/06/17 15:00 110 01/06/17 15:00 98.2 110 24 102/83 92 01/06/17 14:10 113 01/06/17 13:04 Bi-Pap 01/06/17 13:03 104 I/O 01/06/17 01/06/17 01/06/17 01/07/1717 5/30/17 07:00 15:00 23:00 07:00 15:00 23:00 Intake Total 390 ml 520 ml 390 ml Output Total 200 ml 500 ml 225 ml Balance 190 ml 20 ml 165 ml Intake Oral 240 ml 520 ml 240 ml IV Total 150 ml 150 ml Output Urine Total 200 ml 500 ml 225 ml # Voids 3 # Bowel Movements 1 0 Result Diagram: 01/06/17 0743 01/05/17 1528 Objective Remarks GENERAL: in NAD NECK: Supple, trachea midline. No JVD or lymphadenopathy. CARDIOVASCULAR: Regular rate and rhythm without murmurs, gallops, or rubs. RESPIRATORY: Lung sounds are very distant heart appreciate good lung sounds. No wheezing, crackle or rhonchi appreciated. No accessory muscle use. GASTROINTESTINAL: Abdomen soft, non-tender, nondistended. Medications and IVs Current Medications Morphine Sulfate (Morphine Inj) 2 mg ONCE ONCE IV PUSH Last administered on 19:05; Start 01/03/17 at 18:45; Stop 01/03/17 at 18:46; Status DC Nitroglycerin (Nitroglycerin 2% Oint) 1 inch ONCE ONCE TOP Last administered on 01/03/17 19:06; Start 01/03/17 at 18:45; Stop 01/03/17 at 18:46; Status DC Sodium Chloride (NS Flush) 2 ml UNSCH PRN IVF FLUSH AFTER USING IV ACCESS; Start 01/03/17 at 18:45; Stop 01/03/17 at 21:02; Status DC Metoprolol Tartrate (Lopressor Inj) 5 mg Q5M IVS Last administered on 19:06; Start 01/03/17 at 18:45; Stop 01/03/17 at 18:56; Status DC Heparin Sodium (Porcine) (Heparin Inj) 4,000 units ONCE ONCE IV Last administered on 01/03/17 19:10; Start 01/03/17 at 19:00; Stop 01/04/17 at 13:57 ; Status DC Heparin Sodium (Porcine) (Heparin Inj) 5,000 units UNSCH PRN IV APTT LESS THAN 25; Start 01/04/17 at 01:00; Stop 01/04/17 at 13:57; Status DC Heparin Sodium (Porcine) 2500 units 2,500 units UNSCH PRN IV APTT 25 TO 39; Start 01/04/17 at 01:00; Stop 01/04/17 at 13:57; Status DC Heparin Sodium/ Dextrose (Heparin-D5W Inj) 250 ml @ 0 mls/hr TITRATE IV Last administered on 01/03/17 19:44; Start 01/03/17 at 19:00; Stop 01/04/17 at 13:57 ; Status DC Metoprolol Tartrate (Lopressor) 50 mg ONCE ONCE PO Last administered on 19:50; Start 01/03/17 at 19:30; Stop 01/03/17 at 19:31; Status DC Calcium Chloride 1 gm 1 gm ONCE ONCE IV PUSH Last administered on 01/03/17 20 :42; Start 01/03/17 at 20:30; Stop 01/03/17 at 20:31; Status DC Magnesium Sulfate/ Dextrose (Magnesium Sulfate 1 Gm Premix) 100 ml @ 100 mls/ hr ONCE ONCE IV Last administered on 01/03/17 20:42; Start 01/03/17 at 20:30 ; Stop 01/03/17 at 21:29; Status DC Potassium Chloride 40 meq 40 meq ONCE ONCE PO Last administered on 01/03/17 20:41; Start 01/03/17 at 20:30; Stop 01/03/17 at 20:31; Status DC Potassium Chloride (KCl 10 Meq Premix Inj) 100 ml @ 100 mls/hr ONCE ONCE IV Last administered on 01/03/17 23:01; Start 01/03/17 at 20:30; Stop 01/03/17 at 21:29; Status DC Methylprednisolone Sodium Succinate (SoluMEDROL INJ) 40 mg Q6HR IV PUSH Last administered on 01/07/17 05:56; Start 01/04/17 at 00:00 Albuterol/ Ipratropium (Duoneb Neb) 1 ampule Q4HR WHILE AWAKE NEB NEB ; Start 01/04/17 at 08:00; Status UNV Albuterol/ Ipratropium 1 ampule 1 ampule Q2HR NEB PRN NEB SOB/WHEEZING; Start 01/03/17 at 20:15; Status UNV Levofloxacin/ Dextrose (Levaquin 750 Mg Premix Inj) 150 ml @ 100 mls/hr Q24H IV Last administered on 01/06/17 20:42; Start 01/03/17 at 21:00 Sodium Chloride (NS Flush) 2 ml UNSCH PRN IV FLUSH FLUSH AFTER USING IV ACCESS ; Start 01/03/17 at 20:15 Sodium Chloride (NS Flush) 2 ml BID IV FLUSH Last administered on 01/07/17 09: 31; Start 01/03/17 at 21:00 Ondansetron HCl (Zofran Inj) 4 mg Q6H PRN IVP NAUSEA OR VOMITING; Start at 20:15 Acetaminophen (Tylenol) 650 mg Q6H PRN PO FEVER/PAIN SCALE 1 TO 2 Last administered on 01/07/17 09:33; Start 01/03/17 at 20:15 Acetaminophen/ Hydrocodone Bitart ([place] 5-325 Mg) 1 tab Q4H PRN PO PAIN SCALE 3 TO 5 Last administered on 01/07/17 00:05; Start 01/03/17 at 20:15 Morphine Sulfate (Morphine Inj) 2 mg Q3H PRN IV Pain 6-10 Last administered on 01/03/17 23:55; Start 01/03/17 at 20:15 Senna/Docusate Sodium (Alycia-Colace) 1 tab BID PO Last administered on 20:42; Start 01/03/17 at 21:00 Magnesium Hydroxide (Milk Of Magnesia Liq) 30 ml Q12H PRN PO MILD - MODERATE CONSTIPATION; Start 01/03/17 at 20:15 Sennosides (Senokot) 17.2 mg Q12H PRN PO MODERATE - SEVERE CONSTIPATION; Start 01/03/17 at 20:15 Bisacodyl (Dulcolax Supp) 10 mg DAILY PRN RECTAL SEVERE CONSITIPATION; Start at 20:15 Lactulose (Lactulose Liq) 30 ml DAILY PRN PO SEVERE CONSITIPATION; Start at 20:15 Aspirin (Aspirin Chew) 81 mg DAILY PO Last administered on 01/07/17 09:31; Start 01/04/17 at 09:00 Levothyroxine Sodium (Synthroid) 125 mcg DAILY@06 PO Last administered on 05:54; Start 01/04/17 at 06:00; Stop 01/04/17 at 13:57; Status DC Tamsulosin HCl (Flomax) 0.4 mg HS PO Last administered on 01/06/17 20:42; Start 01/03/17 at 21:00 Non-Formulary Medication 5 mg DAILY PO CM; Start 01/04/17 at 09:00; Stop at 09:00; Status DC Non-Formulary Medication 2 puff DAILY INH COPD; Start 01/04/17 at 09:00; Status UNV Atorvastatin Calcium (Lipitor) 10 mg DAILY PO Last administered on 01/07/17 09 :31; Start 01/04/17 at 09:00 Levalbuterol HCl (Xopenex Neb) 1.25 mg Q4HR WHILE AWAKE NEB NEB Last administered on 01/07/17 11:06; Start 01/04/17 at 08:00 Ipratropium [place] (Atrovent Neb) 0.5 mg Q4HR WHILE AWAKE NEB NEB Last administered on 01/07/17 11:05; Start 01/04/17 at 08:00 Levalbuterol HCl (Xopenex Neb) 1.25 mg Q2HR NEB PRN NEB SOB/WHEEZING Last administered on 01/06/17 01:05; Start 01/03/17 at 21:00 Ipratropium [place] (Atrovent Neb) 0.5 mg Q2HR NEB PRN NEB SOB/WHEEZING Last administered on 01/04/17 03:49; Start 01/03/17 at 21:00 Patient Own Medication PT OWN MED: STIOLTO RESPIMAT-... DAILY INH ; Start at 09:00; Status Hold Levothyroxine Sodium (Synthroid) 112 mcg DAILY@0600 PO Last administered on 05:56; Start 01/05/17 at 06:00 Quetiapine Fumarate (SEROquel) 25 mg ONCE ONCE PO Last administered on 20:34; Start 01/04/17 at 17:15; Stop 01/04/17 at 17:16; Status DC Melatonin (Melatonin) 5 mg HS PRN PO INSOMNIA Last administered on 01/06/17 20 :42; Start 01/04/17 at 22:00 Metoprolol Tartrate (Lopressor) 12.5 mg Q12HR PO Last administered on 09:31; Start 01/05/17 at 10:00 Miscellaneous (Pill Splitter) 1 ea UNSCH PRN OTHER SEE LABEL COMMENTS; Start at 10:00 Lactulose (Lactulose Liq) 30 ml ONCE ONCE PO Last administered on 01/05/17 11 :30; Start 01/05/17 at 10:45; Stop 01/05/17 at 10:46; Status DC Temazepam (Restoril) 7.5 mg ONCE ONCE PO Last administered on 01/06/17 01:28 ; Start 01/06/17 at 01:30; Stop 01/06/17 at 01:31; Status DC Atropine Sulfate (Atropine Inj) 1 mg STK-MED ONCE .ROUTE ; Start 01/07/17 at 07: 08; Stop 01/07/17 at 07:09; Status DC Epinephrine HCl (EPINEPHrine (1:10,000) INJ) 1 mg STK-MED ONCE .ROUTE ; Start at 07:08; Stop 01/07/17 at 07:09; Status DC A/P Problem List: (1) Atrial fibrillation with RVR ICD Code: I48.91 Status: Acute (2) COPD (chronic obstructive pulmonary disease) ICD Code: J44.9 Status: Acute (3) Hypoxia ICD Code: R09.02 Status: Acute (4) Elevated troponin ICD Code: R74.8 Status: Acute (5) CHF (congestive heart failure) ICD Code: I50.9 Status: Acute (6) Hypokalemia ICD Code: E87.6 Status: Acute (7) Hypocalcemia ICD Code: E83.51 Status: Acute (8) Hypomagnesemia ICD Code: E83.42 Status: Acute (9) Leukocytosis ICD Code: D72.829 Status: Acute Assessment and Plan Multifocal atrial tachycardia -Per filenet architect patient did not have atrial fibrillation. Most likely secondary to lung disease. -TSH is 0.26. Synthroid doses which these crease. Hypokalemia/hypomagnesemia -Now within normal limits. Already replenished. COPD exacerbation/severe chronic objective pulmonary disease/Hypercapnic respiratory failure with compensated respiratory acidosis -Patient on nebulizer, Solu-Medrol, Levaquin. Chest x-ray was negative for any pneumonia. -Symptomatically patient continues to be short of breath so we will continue her current regimen. -[employer] consulted recommended trial of BiPAP. Goal oxygen saturation is 88% to 92. -Very poor prognosis. We treatment there has been no improvement. Patient has end-stage COPD. Hospice was consulted but is refusing despite patient stating that he is ready to go. Will consult palliative care so that can have an better understanding of what hospice is. Elevated troponins -Mildly elevated. Stable. -Per filenet architect unlikely ACS. Coronary disease with ischemic cardiomyopathy. -Continue home medication. CHF: - Unknown EF, +mild pedal edema on exam. - BNP 277, CXR w/ no acute findings, images reviewed by me. Check Echo for further eval. Hypothyroidism -Decrease Synthroid dose. Will need a repeat in 6 weeks. DVT Prophylaxis: Was on heparin drip but that was discontinued. Discharge Planning Very poor prognosis. Symptoms are not improving despite treatment. Patient has end stage COPD. patient seems to be okay with comfort care but is refusing. Will consult palliative care. Kim Zazueta MD January 07, 2017 12:38
--- NOTE | 2017-01-07 14:34 | PD.CONS ---
Consult Service Palliative Care Consult Requested By Dr Zazueta . Primary Care Physician Miguel Knight MD Reason for Consultation a. To assist with evaluation and management of symptoms including: Dyspnea, pain, anxiety b. To assist medical decision maker(s) with: better understanding of current medical conditions; weighing benefits/burdens of medical treatment options; making medical treatment decisions. HPI History of Present Illness 81-year-old patient presented to the ED on 01/03/17, via EMS. Presented due to reports of chest pain 01/18. Pain reported to be retrosternal, pain in the back as well. Intermittent throughout the day and worsened with exertion. Patient also had worsening shortness of breath. EMS reported O2 sats 82% on 2 L. Patient with known history COPD, O2 dependent. Patient received albuterol and Solu-Medrol en route. He also received nitroglycerin sublingual, aspirin. Patient additionally reporting history of CHF, prior cardiac catheterization with stent. Patient also reported stress test 3 years ago with recommendations for defibrillator. Patient had apparently been on Z-Vlad since Friday in addition to prednisone. * EKG notable for atrial fibrillation 140s, possible ischemic injury. Case was discussed with Dr. Diallo's who recommended heparin drip. Troponin 0.07. BNP 227. CXR with no acute process identified. During later H&P by medical attending patient reported patient with irregular heart rate for several weeks so had never received an official diagnoses of atrial fibrillation. Cardiology has been consulted. 2-D echo is pending. Low potassium 2.8, being repleted. Low magnesium 1.4, being repleted. Mild leukocytosis 13.2. Has completed Z-Vlad, initiated on further empiric antibiotics for pneumonia * Cardiology: Thyroid studies pending. Troponins nonspecific. Continue electrolyte repletion. Mild accelerated idioventricular rhythm on Cardizem not symptomatic- no V. tach , patient has not wanted any invasive procedures, cardiology recommends continue to observe these wishes. Does not need full anticoagulation, continue aspirin. No further cardiac interventions required, cleared for discharge from cardiology standpoint. * 01/04 continues to be short of breath, worsening with any exertion. 2-D echo= severe left ventricular dysfunction per naval inspector. Cardiology started patient on low-dose beta symone, continue blood pressure tolerates. Follow-up as needed. * 01/05 continues to be short of breath despite treatments(nebulizer, Solu-Medrol , Levaquin. chest x-ray was negative for any pneumonia.) Medical attending notes discussion with patient and regarding CODE STATUS, possible hospice as appears to be end-stage COPD. Patient wanted to continue with full code and declined hospice. Patient also declining to have BiPAP. Pulmonology consulted. * 01/05 Pulmonology consulted: Dr. Cuevas recommends starting BIPAP patient and agree to this. Otherwise continue Solu-Medrol antibiotics, nebulizer treatments. Hospice was consulted by medical attending, apparently did not wish to proceed. * 01/07 Pt apparently had a fall in the pulley maintainer hours resulting in abrasions, imaging ordered, patient under fall precautions. Elbow x-ray unremarkable. Head CT with no acute intracranial abnormality identified, chronic generalized atrophy and mild periventricular white matter low attenuation. Hip and pelvis x-ray with no acute abnormality. Knee x-ray with no acute abnormality. Severe tricompartmental osteoarthritis. Shoulder x-ray with no acute fracture or dislocation. Medical attending notes further discussion with patient patient indicating that he does not want to do any further treatments however the wants him to continue to pursue treatments. Palliative care was consulted to assist with clarification of goals of treatment. Patient seen in room, at bedside. Nurse is present for parts of interaction as well as respiratory therapist. Patient is visibly short of breath at rest though he indicates his breathing is a little better, becomes increasingly short of breath with pursed lipped breathing and mild desaturation to the mid 80s with just trying to read position on the bed. He is attempting to tripod however difficult to do so in a hospital bed. He is partially oriented becomes anxious and more forgetful at times. He often defers to his during conversation. Towards end of conversation he is requesting to be placed back on BiPAP for breathing assistance. RT and nursing in to assist with this. [Patient prev hospitalized:] August 26-2016 for COPD exacerbation. Ring that admission he was intubated and on mechanical vent for a few days. He is known by in Jennifer to have history of long-standing COPD. Jul [id number] for COPD exacerbation, during this admission he just presented a few days prior but refused admission for treatment, and then re-presented for shortness of breath. He required BiPAP. During this admission patient requested DNR status. He was discharged home with home health care Function/Cognitive Trajectory Patient with hospitalization August of this year, during that time was intubated and in ICU. Prior to that utilized home walker, wheelchair, oxygen, wheelchair, somewhat independent did require home health following hospital discharge. indicates his ambulation was limited to room to room within the home any further activity outside of the home or longer distances was limited due to dyspnea, as well as patient anxiety. Reported to be cognitively sharp. Review of Systems ROS Limitations: Clinical Condition (shortness of breath with any conversation) Constitutional: COMPLAINS OF: Weight loss (slight weight loss of a few pounds difficulty keeping weight on), Pain (new onset today status post fall), Generalized weakness (during hospitalization), Sleep problems (chronic, relates to anxiety, dyspnea), DENIES: Fever, Change in appetite Eyes: DENIES: Vision loss Ears, nose, mouth, throat: DENIES: Throat pain Respiratory: COMPLAINS OF: Apneas (sleep apnea per ), Cough, Shortness of breath, DENIES: Hemoptysis, Sputum production Cardiovascular: COMPLAINS OF: Chest pain (at presentation, none currently), Dyspnea on Exertion, Orthopnea, DENIES: Palpitations, Syncope, Lower Extremity Edema Gastrointestinal: COMPLAINS OF: Constipation (chronic goes about once or twice a week. Must take prune juice daily), Nausea (1 today has resolved), DENIES: Abdominal pain, Bloody stools, Diarrhea, Vomiting, Difficulty Swallowing, Anorexia Genitourinary: DENIES: Urinary frequency, Urinary incontinence, Urgency, Hematuria Musculoskeletal: COMPLAINS OF: Joint pain, Muscle aches (onset today status post fall pain to left knee, left hip, left shoulder, left temporal) Integumentary: DENIES: Rash Neurologic: DENIES: Abnormal gait, Headache, Speech Problems Psychiatric: COMPLAINS OF: Anxiety (chronic), DENIES: Hallucinations Past Family Social History Coded Allergies: No Known Allergies (Unverified , 01/03/17) Past Medical History PMH: Depression, HTN, COPD, O2 Dependent on 2L NC, CHF (unknown EF), CAD s/p Stent and Hyperlipidemia Past Surgical History PAST SURGICAL HISTORY: Cardiac Stent, CABG Reported Medications Prednisone 20 Mg Tab 20 Mg PO BID Albuterol Neb (Albuterol Sulfate) 2.5 Mg/3 Ml Neb 2.5 Mg NEB Q4HR NEB PRN Centrum (Multiple Vitamins W/ Minerals) 1 Tab 1 Tab PO DAILY Vitamin D-3 (Cholecalciferol) 1,000 Unit Cap 1 Tab PO DAILY Aspirin 81 Mg Chew 81 Mg CHEW DAILY Coq-10 (Coenzyme Q10 (Ubidecarenone)) 100 Mg Cap 1 Tab PO DAILY Theophylline ER 12 HR (Theophylline) 450 Mg Tab 400 Mg PO HS Theophylline ER 12 HR (Theophylline) 200 Mg Tab 200 Mg PO AC BREAKFAST Duoneb (Ipratropium-Albuterol Neb) 0.5-2.5 Mg/3 Ml Neb 1 Nebule INH Q6HR NEB Crestor (Rosuvastatin Calcium) 5 Mg Tab 5 Mg PO DAILY Lisinopril 2.5 Mg Tab 2.5 Mg PO DAILY Tamsulosin (Tamsulosin HCl) 0.4 Mg Cap 0.4 Mg PO HS Levothyroxine (Levothyroxine Sodium) 150 Mcg Tab 150 Mcg PO DAILY Stiolto Respimat Inh (Tiotropium-Olodaterol Inh) 2.5-2.5 Mcg/Act Aero 2 Puff INH DAILY Ventolin Hfa 18 GM Inh (Albuterol Sulfate) 90 Mcg/Act Aer 2 Puff INH Q4H PRN . Current Medications Medications (Trade) Dose Ordered Sig/Riley Route Start Time Stop Time Status Last Admin Methylprednisolone Sodium Succinate 40 mg 40 mg Q6HR IV PUSH 01/04/17 00:00 01/07/17 13:39 (Levaquin 750 Mg Premix Inj) 150 ml @ 100 mls/hr Q24H IV 01/03/17 21:00 01/06/17 20:42 (NS Flush) 2 ml UNSCH PRN IV FLUSH 01/03/17 20:15 (NS Flush) 2 ml BID IV FLUSH 01/03/17 21:00 01/07/17 09:31 (Zofran Inj) 4 mg Q6H PRN IVP 01/03/17 20:15 (Tylenol) 650 mg Q6H PRN PO 01/03/17 20:15 01/07/17 13:38 (Alycia-Colace) 1 tab BID PO 01/03/17 21:00 01/06/17 20:42 (Milk Of Magnesia Liq) 30 ml Q12H PRN PO 01/03/17 20:15 (Senokot) 17.2 mg Q12H PRN PO 01/03/17 20:15 (Dulcolax Supp) 10 mg DAILY PRN RECTAL 01/03/17 20:15 (Lactulose Liq) 30 ml DAILY PRN PO 01/03/17 20:15 (Aspirin Chew) 81 mg DAILY PO 01/04/17 09:00 01/07/17 09:31 (Flomax) 0.4 mg HS PO 01/03/17 21:00 01/06/17 20:42 (Lipitor) 10 mg DAILY PO 01/04/17 09:00 01/07/17 09:31 Patient Own Medication PT OWN MED: STIOLTO RESPIMAT-... DAILY INH 01/04/17 09:00 Hold (Synthroid) 112 mcg DAILY@0600 PO 01/05/17 06:00 01/07/17 05:56 (Melatonin) 5 mg HS PRN PO 01/04/17 22:00 01/06/17 20:42 (Lopressor) 12.5 mg Q12HR PO 01/05/17 10:00 01/07/17 09:31 (Pill Splitter) 1 ea UNSCH PRN OTHER 01/05/17 10:00 Family History Per EMR: Mother secondary to stroke, [place] at 75, father during work- related accident: , To brother's with early colon cancer age 40s. One sister with Alzheimer's. . Substance Use Tobacco: Nonsmoker; former smoker 12 PPD quit approximately 20 years ago Alcohol: Occasional alcohol Prescription med abuse: None reported Illicits: None reported . Psychosocial History , will be 61 years on February 11 . Has biological children, they also adopted 2 grandchildren and rates them as their own. Originally from [place] , lived in [place] for many years. Living Will: Completed, but not made available Health Care Surrogate: Completed, but not made available Health Care Surrogate(s): indicates she is designated healthcare surrogate. In absence of these documents she would be proxy per [place] statutes. Ethical and Legal Issues Patient mental status appears to fluctuate with his clinical condition. indicates she is designated healthcare surrogate. In absence of these documents she would be proxy per [place] statutes. Physical Exam Vital Signs Date Time Temp Pulse Resp B/P Pulse Ox O2 Delivery O2 Flow Rate FiO2 01/07/17 13:00 112 01/07/17 12:00 90 01/07/17 11:08 96 Nasal Cannula 2.00 01/07/17 11:00 100 01/07/17 10:00 110 01/07/17 09:00 104 01/07/17 08:00 114 01/07/17 07:30 89 Nasal Cannula 2.00 01/07/17 07:00 100 01/07/17 06:40 97.9 105 24 134/91 97 01/07/17 06:00 114 01/07/17 05:00 104 01/07/17 03:00 114 01/07/17 03:00 96.2 111 24 134/91 95 01/07/17 02:00 104 01/07/17 01:05 99 6.00 01/07/17 01:00 118 01/07/17 00:00 136 01/06/17 23:00 117 01/06/17 23:00 96.5 114 24 118/89 98 01/06/17 22:00 122 01/06/17 21:00 94 6.00 01/06/17 21:00 128 01/06/17 21:00 94 BiPAP 6.00 01/06/17 20:00 124 01/06/17 19:00 97 Bi-Pap 5.00 21 01/06/17 19:00 123 01/06/17 19:00 97.8 128 26 115/75 93 01/06/17 18:08 133 01/06/17 17:04 123 01/06/17 16:03 114 01/06/17 15:36 92 Nasal Cannula 3.00 01/06/17 15:35 Bi-Pap 01/06/17 15:00 110 01/06/17 15:00 98.2 110 24 102/83 92 01/06/17 14:10 113 01/06/17 01/07/17 19:00 07:00 Intake Total 520 ml 390 ml Output Total 500 ml 225 ml Balance 20 ml 165 ml Intake Oral 520 ml 240 ml IV Total 150 ml Output Urine Total 500 ml 225 ml # Voids 3 # Bowel Movements 0 Exam CONSTITUTIONAL/GENERAL: This is an a frail, elderly-appearing man. Visibly tachypneic, dyspneic with any conversation and at rest TUBES/LINES/DRAINS: Peripheral IV left upper extremity, nasal cannula and BiPAP SKIN: No jaundice, rashes, or lesions. All areas of ecchymosis to bilateral lower extremities, left upper extremity, left facial/temporal region. Multiple reported abrasions to left elbow, left knee, left shoulder (currently covered with clean dry dressing) left temporal region with dried red drainage over Steri -Strips. Skin warm. Dry. HEAD: *See above-noted ecchymosis, Steri-Strip to left temporal. Normocephalic. EYES: Pupils equal and round and reactive. Extraocular motions intact. No scleral icterus. No injection or drainage. Fundi not examined. ENT: Hard of hearing. Nose without bleeding or purulent drainage. Throat without visible erythema, exudates, masses, or lesions. Edentulous. NECK: Trachea midline. Supple, nontender. No palpable thyroid enlargement or nodularity. CARDIOVASCULAR: Regular rate and rhythm without murmur. No JVD. Peripheral pulses symmetric pedal pulses faint. RESPIRATORY/CHEST: Symmetric, mildly labored respirations. Mildly tachypneic respiratory rate 25. Severely diminished air movement throughout. GASTROINTESTINAL: Abdomen soft, flat, non-tender, nondistended. No palpable masses. No guarding. Bowel sounds hypoactive GENITOURINARY: Without palpable bladder distension. Reports voids as needed. LYMPHATICS: No palpable cervical or supraclavicular adenopathy. NEUROLOGICAL: Awake and alert. Motor and sensory grossly within normal limits. Follows commands. Cognitively sharp. Moves all extremities.+ Muscle atrophy to 4 extremities PSYCHIATRIC:+ Anxiety and restlessness at times. Diagnostic Tests Laboratory Laboratory Tests Test 01/04/17 01/05/17 01/05/17 01/06/17 16:20 04:35 15:28 07:43 Blood Gas Puncture Site RT RADIAL Blood Gas Patient Temperature 98.6 Blood Gas HCO3 39 mmol/L (22-26) Blood Gas Base Excess 13.9 mmol/L (-2-2) Blood Gas Oxygen Saturation 94 % (90-100) Arterial Blood pH 7.40 (7.380-7.420) Arterial Blood Partial 65 mmHg (38-42) Pressure CO2 Arterial Blood Partial 92 mmHg Pressure O2 (61-120) Arterial Blood Oxygen Content 17.6 Vol % (12.0-20.0) Arterial Blood 1.4 % (0-4) Carboxyhemoglobin Arterial Blood Methemoglobin 1.5 % (0-2) Blood Gas Hemoglobin 13.2 G/DL (12.0-16.0) Oxygen Delivery Device NASAL CANNULA Blood Gas Liter Flow 2 L/M White Blood Count 14.1 TH/MM3 13.5 TH/MM3 (4.0-11.0) (4.0-11.0) Red Blood Count 3.87 MIL/MM3 3.84 MIL/MM3 (4.50-5.90) (4.50-5.90) Hemoglobin 12.0 GM/DL 12.1 GM/DL (13.0-17.0) (13.0-17.0) Hematocrit 36.8 % 36.5 % (39.0-51.0) (39.0-51.0) Mean Corpuscular Volume 95.0 FL 95.0 FL (80.0-100.0) (80.0-100.0) Mean Corpuscular Hemoglobin 31.1 PG 31.6 PG (27.0-34.0) (27.0-34.0) Mean Corpuscular Hemoglobin 32.7 % 33.3 % Concent (32.0-36.0) (32.0-36.0) Red Cell Distribution Width 13.5 % 13.4 % (11.6-17.2) (11.6-17.2) Platelet Count 163 TH/MM3 152 TH/MM3 (150-450) (150-450) Mean Platelet Volume 7.8 FL 7.8 FL (7.0-11.0) (7.0-11.0) Sodium Level 138 MEQ/L 141 MEQ/L (136-145) (136-145) Potassium Level 4.2 MEQ/L 4.4 MEQ/L (3.5-5.1) (3.5-5.1) Chloride Level 91 MEQ/L 92 MEQ/L (98-107) (98-107) Carbon Dioxide Level 42.5 MEQ/L 43.2 MEQ/L (21.0-32.0) (21.0-32.0) Anion Gap 5 MEQ/L (5-15) 6 MEQ/L (5-15) Blood Urea Nitrogen 23 MG/DL (7-18) 25 MG/DL (7-18) Creatinine 0.74 MG/DL 0.89 MG/DL (0.60-1.30) (0.60-1.30) Estimat Glomerular Filtration 102 ML/MIN 82 ML/MIN (>89) Rate (>89) Random Glucose 132 MG/DL 171 MG/DL (74-106) (74-106) Calcium Level 9.2 MG/DL 9.6 MG/DL (8.5-10.1) (8.5-10.1) Magnesium Level 1.8 MG/DL (1.5-2.5) Result Diagram: 01/06/17 0743 01/05/17 1528 Patient/Family Conference Present at Family Conference: , patient Family Conference Time (mins): 35 Family Conference Location: Bedside Issues Discussed: Met with patient at length at bedside. He has limited ability to participate as he is very dyspneic with any conversation, at times becomes forgetful and anxious. Discussion included the following: * Palliative care role, purpose, approach * Additional medical, psychosocial, history * Patients general health, functional status, and cognitive changes in the months leading up to the current hospitalization * Patient/family understanding of the current medical problems * Patient/family understanding of prognosis--review of expected COPD trajectory * Patients goals of care as best understood from advance directives and/or conversations and/or values * Current medical treatment options and benefits/burdens of those options; including CODE STATUS what resuscitation and intubation entails * Likely scenarios comparing ongoing aggressive care with a transition to comfort measures only-exploration of hospice role, services, philosophy * Legal decision maker/living will/HCS documents-- indicates they have copies with various providers outside the facility, requested her obtain copy to provide to assist with his goals * Questions answered to the best of my ability * Palliative care contact information provided Patient with limited ability to participate due to fluctuating mental status and dyspnea. His is able to detail his hospital course appears to have a good understanding. She indicates that they have both been told for the past 4- 5 days that he is going to . She understands that at some point COPD no longer readily responds to treatment however she is hopeful that this exacerbation might be one more than he can "bounce back" from. Upon exploration of CODE STATUS she indicates that in the past when he elected DNR( which I note during prior hospitalization) that he only elected DNR because he would not want to be on a ventilator for prolonged period. I did gently explore that in his condition if he did require ventilation we would not know how long, and it very well could be for a prolonged period and eventually required tracheostomy etc. then further indicates that when it is his time to they are adamant that he should at home comfortable in his home surroundings. Further gently explore with her that if he doesn't up on a mechanical vent for any of his COPD exacerbations it would be unlikely to stabilize enough to do I at home as per their request, hence ongoing conversations regarding goals, intubation, possible hospice etc. during hospital course currently. Advised that medical treatments are currently maximized and not clear that patient is improving to a point where he could be medically stable enough to discharge yet. Explore her meeting with hospice, she indicates that she has already met with a hospice containers sales representative here and they're not certain they wish to proceed. She is going to talk to a family friend who has a relationship with [facility], as well as their Known nurse practitioner who has been providing home visits to them for a long time now. She will discuss these things further as of right now goals are expressed as semi-aggressive though also wanting end-of-life to be at home. Assessment and Plan Disease Oriented Problem List: (1) CAD (coronary artery disease) (2) Hyperlipidemia (3) Hypothyroidism (4) COPD with exacerbation (5) Acute respiratory failure with hypoxia and hypercapnia (6) Acute hypokalemia (7) Hypokalemia (8) Hypomagnesemia (9) Hypocalcemia (10) CHF (congestive heart failure) (11) Leukocytosis (12) Hypoxia (13) Elevated troponin Symptom Scale: (1) Dyspnea (2) Anxiety (3) Pain Pertinent Non-Medical Issues Psychosocial:, will be 61 years on February 11 . Has biological children, they also adopted 2 grandchildren and rates them as their own. Originally from [place] , lived in [place] for many years. Spiritual: Legal:Patient mental status appears to fluctuate with his clinical condition. indicates she is designated healthcare surrogate. In absence of these documents she would be proxy per [place] statutes. Ethical issues impacting care: Important Contacts Christine Haywood (Spouse) [phone], Diana Oshea (Daughter) [phone] . Prognosis This patient was admitted for dyspnea, chest pain. Mildly elevated troponins though felt more likely to be secondary to pulmonary status. Acute COPD exacerbation ongoing treatment with DuoNeb nebulizers, steroids, antibiotics with little change inpatient clinical condition and symptoms. Likely end-stage COPD. Originally diagnosed with COPD 5-6 years ago, O2 dependent for some time now. Appropriate for hospice if goals compatible. . Code Status: Full Code Plan * Legal decision maker:Patient mental status appears to fluctuate with his clinical condition. indicates she is designated healthcare surrogate. In absence of these documents she would be proxy per [place] statutes. * Goals:goals are expressed as semi-aggressive though also wanting end-of-life to be at home. Met with patient and at length. See family conference for detail. On one hand endorses patient wants to be allowed to comfortably in the home setting however on the other hand she is endorsing he would still want ventilator and semi-aggressive measures during hospital course in case this is a COPD exacerbation "that he can bounce back from ". She seems to be struggling to accept that eventually he will have decline and from his COPD. * CODE STATUS: Full code * SYMPTOMS: --Dyspnea- progressive shortness of breath leading up to current admission. During current acute hospitalization little relief despite ongoing aggressive/ maximized medical interventions. Has agreed to BiPAP which patient and endorse eases breathing some. Likely end-stage COPD. Could require mechanical ventilation, which could be difficult weaning. If goals were comfort oriented would benefit from low-dose opiate for tachypnea. Currently goals aggressive. --Anxiety-chronic, worsens with COPD exacerbations, as well as chaotic situations. Patient prefers to be in the home setting. informs previously patient has been prescribed Xanax which indicates patient did not respond well to she has had better results utilizing magnolia bark for homeopathic treatment. He has had some episodes of agitation/anxiety which seems also correlate with worsening dyspnea and likely fluctuation and oxygen status. Could benefit from low-dose benzodiazepine or opiate such as morphine iff goals were comfort oriented as this would decrease tachypnea and respiratory drive. --Pain-suffered a fall earlier this morning. Sustained abrasions, bruises to left shoulder, left hip, left knee, left temporal region. Imaging negative for fracture or acute injury. Still feels "sore "feels pain is currently adequately controlled with Tylenol. Review of balance of sedation versus pain relief when utilizing any stronger medications, wishes to continue to try to utilize Tylenol for now. --Malnutrition--patient endorse good appetite and oral intake however slight weight loss despite good intake. They do endorse that it takes him a very long time to eat and complete meals due to dyspnea. Albumin low 3.1. Of note weight recorded August 2016 admission 60 kg, current weight 52 kg==>> 8 kg /17 pound weight loss in the past 5 months. In the past patient has utilize boost/answer supplements. Would benefit from high-calorie supplement due to increased metabolic needs. * Palliative care will continue to follow during hospital course as condition evolves, to assist patient/decision-maker with understanding of medical conditions, weighing benefits/burdens of treatment options, for clarification of goals of treatment. Additionally will assist with any symptoms of palliative concern * . Time Spent Total Floor Time (mins): 65 Thank you for the opportunity to participate in the care of Mr. Haywood. Attestation To help prompt me to consider important information that might be impacting today's encounter and assessment, information from prior notes written by myself or my colleagues may have been "brought forward" into today's note. My signature on this note, however, is an attestation that I personally performed the exam, history, and/or decision-making noted today, and, unless otherwise indicated, the interactions with patient, family, and staff as well as the review of records all occurred today. I also attest that the listed assessment and stated plan reflect my best clinical judgment today based on the combination of historical information, prior notes, and today's exam/ interactions. When time spent is documented, it refers only to time spent today by the signer, or if indicated, combined time spent today by collaborating physician/nurse practitioner. Zenobia Barba January 07, 2017 14:34
--- NOTE | 2017-01-07 18:49 | HHI.PR ---
Subjective Remarks 81 YOWM with COPD, GENARO,Resp insuff Breathing better Used CPAP, helps No CP at BS considering home with hospice Objective Vital Signs Vital Signs Date Time Temp Pulse Resp B/P Pulse Ox O2 Delivery O2 Flow Rate FiO2 01/07/17 18:00 134 01/07/17 17:00 106 01/07/17 16:05 118 01/07/17 16:00 113 24 116/89 98 01/07/17 15:40 96 01/07/17 15:00 113 01/07/17 14:00 109 01/07/17 14:00 107 01/07/17 13:00 112 01/07/17 12:00 90 01/07/17 11:30 98.1 120 24 108/74 96 01/07/17 11:08 96 Nasal Cannula 2.00 01/07/17 11:00 100 01/07/17 10:00 110 01/07/17 09:00 104 01/07/17 08:00 98.1 113 24 134/92 92 01/07/17 08:00 114 01/07/17 07:30 89 Nasal Cannula 2.00 01/07/17 07:00 100 01/07/17 06:40 97.9 105 24 134/91 97 01/07/17 06:00 114 01/07/17 05:00 104 01/07/17 03:00 114 01/07/17 03:00 96.2 111 24 134/91 95 01/07/17 02:00 104 01/07/17 01:05 99 6.00 01/07/17 01:00 118 01/07/17 00:00 136 01/06/17 23:00 117 01/06/17 23:00 96.5 114 24 118/89 98 01/06/17 22:00 122 01/06/17 21:00 94 6.00 01/06/17 21:00 128 01/06/17 21:00 94 BiPAP 6.00 01/06/17 20:00 124 01/06/17 19:00 97 Bi-Pap 5.00 21 01/06/17 19:00 123 01/06/17 19:00 97.8 128 26 115/75 93 I/O 01/06/17 01/06/17 01/06/17 01/07/17 01/07/17 01/07/17 07:00 15:00 23:00 07:00 15:00 23:00 Intake Total 390 ml 520 ml 390 ml 490 ml Output Total 200 ml 500 ml 225 ml 250 ml Balance 190 ml 20 ml 165 ml 240 ml Intake Oral 240 ml 520 ml 240 ml 490 ml IV Total 150 ml 150 ml Output Urine Total 200 ml 500 ml 225 ml 250 ml # Voids 3 3 # Bowel Movements 1 0 Result Diagram: 01/06/17 0743 01/05/17 1528 Objective Remarks GENERAL: Elderly WM, mild sob SKIN: Warm and dry. HEAD: Normocephalic. EYES: No scleral icterus. No injection or drainage. NECK: Supple, trachea midline. No JVD or lymphadenopathy. CARDIOVASCULAR: Regular rate and rhythm without murmurs, gallops, or rubs. RESPIRATORY: Breath sounds equal bilaterally. No accessory muscle use. Decreased chest excursion GASTROINTESTINAL: Abdomen soft, non-tender, nondistended. MUSCULOSKELETAL: No cyanosis, or edema. BACK: Nontender without obvious deformity. No CVA tenderness. A/P Assessment and Plan COPD Exac GENARO Hypercapnoic resp insuff CAD CMP PLAN: DW Pt and CPAP at night and PRN IV Solumedrol Aerosol nebs Cont Abx Hospice eval. Brett Cuevas MD January 07, 2017 18:49
[2017-01-07] MEDS: TAMSULOSIN HCL 0.4 MG CAP PO SCH (21:36)
[2017-01-07] MEDS: LEVOFLOXACIN 750 MG PREMIX INJ 150 ML IV SCH (21:36)
[2017-01-07] MEDS: MELATONIN 5 MG TAB PO PRN (21:36)
[2017-01-08] VITALS (19 sets, daily range): BP systolic 122–135; BP diastolic 71–91; PULSE 104–132; RESP 18–26; TEMP 97.4–98.2; O2SAT 91–98
[2017-01-08] MEDS: methylPREDNISolone SOD SUCC 40 MG/1 ML VIAL IV PUSH SCH ×3 (00:58→12:33)
[2017-01-08] MEDS: LEVOTHYROXINE SODIUM 112 MCG TAB PO SCH (06:40)
[2017-01-08] MEDS: RESP: LEVALBUTEROL HYDROCHLORIDE 1.25 MG/3 ML NEB (SCH) NEB (07:59)
[2017-01-08] MEDS: RESP: IPRATROPIUM 0.5 MG/2.5 ML NEB NEB SCH (07:59)
[2017-01-08] MEDS: ATORVASTATIN 10 MG TAB PO SCH (09:02)
[2017-01-08] MEDS: METOPROLOL TARTRATE 25 MG TAB PO SCH (09:02)
[2017-01-08] MEDS: DOCUSATE SODIUM 50 MG/SENNA 8.6 MG TAB PO SCH (09:02)
[2017-01-08] MEDS: ASPIRIN 81 MG CHEW TAB PO SCH (09:03)
[2017-01-08] MEDS: SODIUM CHLORIDE 0.9% FLUSH 10 ML FLUSH IV FLUSH SCH (09:03)
--- NOTE | 2017-01-08 12:23 | HHI.PR ---
Subjective Remarks Follow-up for respiratory failure Patient is more confused today. Multiple family members, granddaughter, his dog cream, sitter and at the bedside. requested home hospice with [facility]. [facility] nutrition representative stop by during the interview and stated that area trying to set everything up FARNAZ. He denies any shortness of breathing but is confused. Per nurse patient is agitated is pulling off his oxygen and IVs. Objective Vitals Vital Signs Date Time Temp Pulse Resp B/P Pulse Ox O2 Delivery O2 Flow Rate FiO2 01/08/17 12:01 111 01/08/17 12:00 97.9 109 20 135/83 93 01/08/17 11:38 104 01/08/17 10:00 115 01/08/17 09:00 105 01/08/17 08:14 117 01/08/17 08:02 97 Nasal Cannula 3.00 01/08/17 07:00 114 01/08/17 07:00 93 Nasal Cannula 3.00 01/08/17 07:00 97.8 122 20 135/91 96 01/08/17 06:00 118 01/08/17 05:00 126 01/08/17 04:00 132 01/08/17 03:00 98.2 115 26 122/71 98 01/08/17 03:00 119 01/08/17 02:00 114 01/08/17 01:00 120 01/08/17 00:00 130 01/07/17 23:00 138 01/07/17 23:00 152 01/07/17 22:00 158 01/07/17 21:00 148 01/07/17 20:38 96 Nasal Cannula 3.00 01/07/17 20:00 124 01/07/17 19:00 122 01/07/17 19:00 98 Nasal Cannula 3.00 01/07/17 19:00 98.5 143 22 139/94 98 01/07/17 18:00 134 01/07/17 17:00 106 01/07/17 16:05 118 01/07/17 16:00 113 24 116/89 98 01/07/17 15:40 96 01/07/17 15:00 113 01/07/17 14:00 109 01/07/17 14:00 107 01/07/17 13:00 112 I/O 5/30/01/07/17 01/07/17 01/08/17 01/08/17 01/08/17 07:00 15:00 23:00 07:00 15:00 23:00 Intake Total 390 ml 490 ml 390 ml Output Total 225 ml 250 ml 100 ml Balance 165 ml 240 ml 290 ml Intake Oral 240 ml 490 ml 240 ml IV Total 150 ml 150 ml Output Urine Total 225 ml 250 ml 100 ml # Voids 3 Result Diagram: 01/06/17 0743 01/05/17 1528 Objective Remarks GENERAL: in NAD but is agitated. NECK: Supple, trachea midline. No JVD or lymphadenopathy. CARDIOVASCULAR: Regular rate and rhythm without murmurs, gallops, or rubs. RESPIRATORY: Lung sounds are very distant heart appreciate good lung sounds. No wheezing, crackle or rhonchi appreciated. No accessory muscle use. GASTROINTESTINAL: Abdomen soft, non-tender, nondistended. Medications and IVs Current Medications Morphine Sulfate (Morphine Inj) 2 mg ONCE ONCE IV PUSH Last administered on 19:05; Start 01/03/17 at 18:45; Stop 01/03/17 at 18:46; Status DC Nitroglycerin (Nitroglycerin 2% Oint) 1 inch ONCE ONCE TOP Last administered on 01/03/17 19:06; Start 01/03/17 at 18:45; Stop 01/03/17 at 18:46; Status DC Sodium Chloride (NS Flush) 2 ml UNSCH PRN IVF FLUSH AFTER USING IV ACCESS; Start 01/03/17 at 18:45; Stop 01/03/17 at 21:02; Status DC Metoprolol Tartrate (Lopressor Inj) 5 mg Q5M IVS Last administered on 19:06; Start 01/03/17 at 18:45; Stop 01/03/17 at 18:56; Status DC Heparin Sodium (Porcine) (Heparin Inj) 4,000 units ONCE ONCE IV Last administered on 01/03/17 19:10; Start 01/03/17 at 19:00; Stop 01/04/17 at 13:57 ; Status DC Heparin Sodium (Porcine) (Heparin Inj) 5,000 units UNSCH PRN IV APTT LESS THAN 25; Start 01/04/17 at 01:00; Stop 01/04/17 at 13:57; Status DC Heparin Sodium (Porcine) 2500 units 2,500 units UNSCH PRN IV APTT 25 TO 39; Start 01/04/17 at 01:00; Stop 01/04/17 at 13:57; Status DC Heparin Sodium/ Dextrose (Heparin-D5W Inj) 250 ml @ 0 mls/hr TITRATE IV Last administered on 01/03/17 19:44; Start 01/03/17 at 19:00; Stop 01/04/17 at 13:57 ; Status DC Metoprolol Tartrate (Lopressor) 50 mg ONCE ONCE PO Last administered on 19:50; Start 01/03/17 at 19:30; Stop 01/03/17 at 19:31; Status DC Calcium Chloride 1 gm 1 gm ONCE ONCE IV PUSH Last administered on 01/03/17 20 :42; Start 01/03/17 at 20:30; Stop 01/03/17 at 20:31; Status DC Magnesium Sulfate/ Dextrose (Magnesium Sulfate 1 Gm Premix) 100 ml @ 100 mls/ hr ONCE ONCE IV Last administered on 01/03/17 20:42; Start 01/03/17 at 20:30 ; Stop 01/03/17 at 21:29; Status DC Potassium Chloride 40 meq 40 meq ONCE ONCE PO Last administered on 01/03/17 20:41; Start 01/03/17 at 20:30; Stop 01/03/17 at 20:31; Status DC Potassium Chloride (KCl 10 Meq Premix Inj) 100 ml @ 100 mls/hr ONCE ONCE IV Last administered on 01/03/17 23:01; Start 01/03/17 at 20:30; Stop 01/03/17 at 21:29; Status DC Methylprednisolone Sodium Succinate (SoluMEDROL INJ) 40 mg Q6HR IV PUSH Last administered on 01/08/17 06:40; Start 01/04/17 at 00:00 Albuterol/ Ipratropium (Duoneb Neb) 1 ampule Q4HR WHILE AWAKE NEB NEB ; Start 01/04/17 at 08:00; Status UNV Albuterol/ Ipratropium 1 ampule 1 ampule Q2HR NEB PRN NEB SOB/WHEEZING; Start 01/03/17 at 20:15; Status UNV Levofloxacin/ Dextrose (Levaquin 750 Mg Premix Inj) 150 ml @ 100 mls/hr Q24H IV Last administered on 01/07/17 21:36; Start 01/03/17 at 21:00 Sodium Chloride (NS Flush) 2 ml UNSCH PRN IV FLUSH FLUSH AFTER USING IV ACCESS ; Start 01/03/17 at 20:15 Sodium Chloride (NS Flush) 2 ml BID IV FLUSH Last administered on 01/08/17 09: 03; Start 01/03/17 at 21:00 Ondansetron HCl (Zofran Inj) 4 mg Q6H PRN IVP NAUSEA OR VOMITING; Start at 20:15 Acetaminophen (Tylenol) 650 mg Q6H PRN PO FEVER/PAIN SCALE 1 TO 2 Last administered on 01/07/17 13:38; Start 01/03/17 at 20:15 Acetaminophen/ Hydrocodone Bitart ([place] 5-325 Mg) 1 tab Q4H PRN PO PAIN SCALE 3 TO 5 Last administered on 01/07/17 00:05; Start 01/03/17 at 20:15; Stop 01/07/17 at 12:31; Status DC Morphine Sulfate (Morphine Inj) 2 mg Q3H PRN IV Pain 6-10 Last administered on 01/03/17 23:55; Start 01/03/17 at 20:15; Stop 01/07/17 at 12:31; Status DC Senna/Docusate Sodium (Alycia-Colace) 1 tab BID PO Last administered on 09:02; Start 01/03/17 at 21:00 Magnesium Hydroxide (Milk Of Magnesia Liq) 30 ml Q12H PRN PO MILD - MODERATE CONSTIPATION; Start 01/03/17 at 20:15 Sennosides (Senokot) 17.2 mg Q12H PRN PO MODERATE - SEVERE CONSTIPATION; Start 01/03/17 at 20:15 Bisacodyl (Dulcolax Supp) 10 mg DAILY PRN RECTAL SEVERE CONSITIPATION; Start at 20:15 Lactulose (Lactulose Liq) 30 ml DAILY PRN PO SEVERE CONSITIPATION; Start at 20:15 Aspirin (Aspirin Chew) 81 mg DAILY PO Last administered on 01/08/17 09:03; Start 01/04/17 at 09:00 Levothyroxine Sodium (Synthroid) 125 mcg DAILY@06 PO Last administered on 05:54; Start 01/04/17 at 06:00; Stop 01/04/17 at 13:57; Status DC Tamsulosin HCl (Flomax) 0.4 mg HS PO Last administered on 01/07/17 21:36; Start 01/03/17 at 21:00 Non-Formulary Medication 5 mg DAILY PO CM; Start 01/04/17 at 09:00; Stop at 09:00; Status DC Non-Formulary Medication 2 puff DAILY INH COPD; Start 01/04/17 at 09:00; Status UNV Atorvastatin Calcium (Lipitor) 10 mg DAILY PO Last administered on 01/08/17 09 :02; Start 01/04/17 at 09:00 Levalbuterol HCl (Xopenex Neb) 1.25 mg Q4HR WHILE AWAKE NEB NEB Last administered on 01/08/17 07:59; Start 01/04/17 at 08:00; Stop 01/08/17 at 08:00 ; Status DC Ipratropium [place] (Atrovent Neb) 0.5 mg Q4HR WHILE AWAKE NEB NEB Last administered on 01/08/17 07:59; Start 01/04/17 at 08:00; Stop 01/08/17 at 08:00 ; Status DC Levalbuterol HCl (Xopenex Neb) 1.25 mg Q2HR NEB PRN NEB SOB/WHEEZING Last administered on 01/06/17 01:05; Start 01/03/17 at 21:00 Ipratropium [place] (Atrovent Neb) 0.5 mg Q2HR NEB PRN NEB SOB/WHEEZING Last administered on 01/04/17 03:49; Start 01/03/17 at 21:00 Patient Own Medication PT OWN MED: STIOLTO RESPIMAT-... DAILY INH ; Start at 09:00; Status Hold Levothyroxine Sodium (Synthroid) 112 mcg DAILY@0600 PO Last administered on 06:40; Start 01/05/17 at 06:00 Quetiapine Fumarate (SEROquel) 25 mg ONCE ONCE PO Last administered on 20:34; Start 01/04/17 at 17:15; Stop 01/04/17 at 17:16; Status DC Melatonin (Melatonin) 5 mg HS PRN PO INSOMNIA Last administered on 01/07/17 21 :36; Start 01/04/17 at 22:00 Metoprolol Tartrate (Lopressor) 12.5 mg Q12HR PO Last administered on 09:02; Start 01/05/17 at 10:00 Miscellaneous (Pill Splitter) 1 ea UNSCH PRN OTHER SEE LABEL COMMENTS; Start at 10:00 Lactulose (Lactulose Liq) 30 ml ONCE ONCE PO Last administered on 01/05/17 11 :30; Start 01/05/17 at 10:45; Stop 01/05/17 at 10:46; Status DC Temazepam (Restoril) 7.5 mg ONCE ONCE PO Last administered on 01/06/17 01:28 ; Start 01/06/17 at 01:30; Stop 01/06/17 at 01:31; Status DC Atropine Sulfate (Atropine Inj) 1 mg STK-MED ONCE .ROUTE ; Start 01/07/17 at 07: 08; Stop 01/07/17 at 07:09; Status DC Epinephrine HCl (EPINEPHrine (1:10,000) INJ) 1 mg STK-MED ONCE .ROUTE ; Start at 07:08; Stop 01/07/17 at 07:09; Status DC A/P Problem List: (1) Atrial fibrillation with RVR ICD Code: I48.91 Status: Acute (2) COPD (chronic obstructive pulmonary disease) ICD Code: J44.9 Status: Acute (3) Hypoxia ICD Code: R09.02 Status: Acute (4) Elevated troponin ICD Code: R74.8 Status: Acute (5) CHF (congestive heart failure) ICD Code: I50.9 Status: Acute (6) Hypokalemia ICD Code: E87.6 Status: Acute (7) Hypocalcemia ICD Code: E83.51 Status: Acute (8) Hypomagnesemia ICD Code: E83.42 Status: Acute (9) Leukocytosis ICD Code: D72.829 Status: Acute Assessment and Plan Multifocal atrial tachycardia -Per multi spindle operator patient did not have atrial fibrillation. Most likely secondary to lung disease. -TSH is 0.26. Synthroid doses decreased Hypokalemia/hypomagnesemia -Now within normal limits. Already replenished. COPD exacerbation/severe chronic objective pulmonary disease/Hypercapnic respiratory failure with compensated respiratory acidosis -Patient on nebulizer, Solu-Medrol, Levaquin. Chest x-ray was negative for any pneumonia. -Patient continues to be symptomatic. -Automotive Customer Experience Advisor consulted recommended trial of BiPAP. Goal oxygen saturation is 88% to 92. -Very poor prognosis. With treatment there has been no improvement during hospitalization. Patient has end-stage COPD. palliative care consulted and family now wants home hospice with [facility]. Agitation -due to current disease process. -will try very low dose of ativan to see if that helps. -he has Seroquel but will not take medication due to agitation. Elevated troponins -Mildly elevated. Stable. -Per multi spindle operator unlikely ACS. Coronary disease with ischemic cardiomyopathy. -Continue home medication. CHF: - Unknown EF, +mild pedal edema on exam. - BNP 277, CXR w/ no acute finding. -stable. Hypothyroidism -Decrease Synthroid dose. Will need a repeat in 6 weeks. DVT Prophylaxis: SCDs Discharge Planning Very poor prognosis. Patient will go home with home hospice with [facility]. Kim Zazueta MD January 08, 2017 12:23
[2017-01-08] MEDS ORDERED: LORazepam 2 MG/ML VIAL IV PUSH ONE (13:00)
[2017-01-08] MEDS ORDERED: METO25TA3 PO (14:30)
[2017-01-08] MEDS ORDERED: LEVO750T3 PO (14:30)
--- NOTE | 2017-01-08 14:31 | HHI.DS ---
Discharge Summary Admission Date January 03, 2017 at 20:19 Discharge Date: January 08, 2017 Admitting Diagnosis respiratory distress, new onset A. fib with RVR, rule out ACS (1) Acute respiratory failure with hypoxia and hypercapnia ICD Code: J96.01 Diagnosis: Principal (2) COPD exacerbation ICD Code: J44.1 Diagnosis: Principal (3) End stage COPD ICD Code: J44.9 Diagnosis: Principal (4) Elevated troponin ICD Code: R74.8 Diagnosis: Secondary (5) CHF (congestive heart failure) ICD Code: I50.9 Diagnosis: Secondary (6) Hypokalemia ICD Code: E87.6 Diagnosis: Secondary (7) Hypocalcemia ICD Code: E83.51 Diagnosis: Secondary (8) Hypomagnesemia ICD Code: E83.42 Diagnosis: Secondary (9) Leukocytosis ICD Code: D72.829 Diagnosis: Secondary Procedures none Brief History - From Admission This is an 81-year-old male with a PMH of Depression, HTN, COPD, O2 Dependent on 2L NC, CHF (unknown EF), CAD s/p Stent and Hyperlipidemia who was brought to the ER by EMS secondary to severe SOB. Upon EMS arrival, noted to have O2 sat 82% on 2L NC w/ significant respiratory distress. S/p Solu-Medrol and DuoNeb w / some improvement. Also noted to be in A-fib w/ RVR, HR 140-150's, s/p Lopressor IV w/ HR now 90-100's. Per , she checks his vitals and O2 sat regularly and she's noted his HR to be "all over the place" for several weeks, was told by home visiting doctor that he needs to see his Garage Door Installer, Dr. Sheets. Per , never diagnosed w/ A-fib. also mentions has been on Z-michael since Friday in addition to Prednisone 20mg BID, dose increased from 10mg BID. On arrival, BP 158/70, HR 141, O2 sat 100% on NRM, Afebrile. WBC 13.2, elevated neutrophil count. K+ 2.8, Calcium 7.0. Mg 1.4. Trop 0.07, noted to have some new EKG changes. ER doc spoke w/ Dr. Osorio, recommended Heparin gtt, started in ER. BNP 227. CXR w/ no acute findings. Pt currently weaned down to 4L NC w/ O2 sat 100%. CBC/BMP: 01/06/17 0743 01/05/17 1528 Significant Findings Laboratory Tests Test 01/05/17 01/06/17 15:28 07:43 Chloride Level 92 MEQ/L (98-107) Carbon Dioxide Level 43.2 MEQ/L (21.0-32.0) Blood Urea Nitrogen 25 MG/DL (7-18) Estimat Glomerular Filtration 82 ML/MIN (>89) Rate Random Glucose 171 MG/DL (74-106) White Blood Count 13.5 TH/MM3 (4.0-11.0) Red Blood Count 3.84 MIL/MM3 (4.50-5.90) Hemoglobin 12.1 GM/DL (13.0-17.0) Hematocrit 36.5 % (39.0-51.0) Imaging Last Impressions Shoulder X-Ray 01/07/17 0000 Signed Impressions: Service Date/Time: Saturday, January 07, 2017 07:39 - CONCLUSION: 1. No acute fracture joint dislocation. 2. Calcific tendinitis. Joey Aguila MD Knee X-Ray 01/07/17 0000 Signed Impressions: Service Date/Time: Saturday, January 07, 2017 07:35 - CONCLUSION: 1. No acute left knee abnormality is identified. The bones are undermineralized. 2. Severe tricompartmental osteoarthritis with severe medial and patellofemoral joint space narrowing. A small joint effusion is present. Murray Dalton MD Hip and Pelvis X-Ray 01/07/17 0000 Signed Impressions: Service Date/Time: Saturday, January 07, 2017 07:30 - CONCLUSION: No acute pelvis or hip joint abnormality is identified. The bones are undermineralized. Murray Dalton MD Head CT 01/07/17 0000 Signed Impressions: Service Date/Time: Saturday, January 07, 2017 07:23 - CONCLUSION: 1. No acute intracranial abnormality is identified. 2. Age-appropriate related to chronic changes include generalized atrophy and mild periventricular white matter low attenuation characteristic of chronic microvascular ischemia. Murray Dalton MD Elbow X-Ray 01/07/17 0000 Signed Impressions: Service Date/Time: Saturday, January 07, 2017 07:45 - CONCLUSION: Unremarkable exam. Joey Aguila MD Chest X-Ray 01/03/17 1835 Signed Impressions: Service Date/Time: Tuesday, January 03, 2017 19:07 - CONCLUSION: No acute disease. Ady Morrell Jr., MD PE at Discharge GENERAL: in NAD but is agitated. NECK: Supple, trachea midline. No JVD or lymphadenopathy. CARDIOVASCULAR: Regular rate and rhythm without murmurs, gallops, or rubs. RESPIRATORY: Lung sounds are very distant heart appreciate good lung sounds. No wheezing, crackle or rhonchi appreciated. No accessory muscle use. GASTROINTESTINAL: Abdomen soft, non-tender, nondistended. Hospital Course Multifocal atrial tachycardia -Per assistant women's rowing coach patient did not have atrial fibrillation. Most likely secondary to lung disease. -TSH is 0.26. Synthroid doses decreased Hypokalemia/hypomagnesemia -Now within normal limits. Already replenished. COPD exacerbation/severe chronic objective pulmonary disease/Hypercapnic respiratory failure with compensated respiratory acidosis -Patient on nebulizer, Solu-Medrol, Levaquin. Chest x-ray was negative for any pneumonia. -Patient continues to be symptomatic. -Customer Servicer consulted recommended trial of BiPAP. Goal oxygen saturation is 88% to 92. -Very poor prognosis. With treatment there has been no improvement during hospitalization. Patient has end-stage COPD. palliative care consulted and family now wants home hospice with [facility]. Agitation -due to current disease process. -will try very low dose of ativan to see if that helps. -he has Seroquel but will not take medication due to agitation. Elevated troponins -Mildly elevated. Stable. -Per assistant women's rowing coach unlikely ACS. Coronary disease with ischemic cardiomyopathy. -Continue home medication. CHF: - Unknown EF, +mild pedal edema on exam. - BNP 277, CXR w/ no acute finding. -stable. Hypothyroidism -Decrease Synthroid dose. Will need a repeat in 6 weeks. Pt Condition on Discharge: Deteriorating Discharge Disposition: Hospice/ Home Discharge Time: <= 30 minutes Discharge Instructions DIET: Follow Instructions for: Heart Healthy Diet Activities you can perform: Regular-No Restrictions New Medications: Levofloxacin (Levofloxacin) 750 Mg Tablet 750 MG PO DAILY Infection #5 Ref 0 TAB Metoprolol Tartrate (Metoprolol Tartrate) 25 Mg Tab 12.5 MG PO Q12HR tachycardia #60 Ref 0 TAB Continued Medications: Albuterol Neb (Albuterol Neb) 2.5 Mg/3 Ml Neb 2.5 MG NEB Q4HR NEB PRN SHORTNESS OF BREATH #60 Ref 0 NEBULE Aspirin (Aspirin) 81 Mg Chew 81 MG PO DAILY Ref 0 TAB Cholecalciferol (Vitamin D-3) 1,000 Unit Cap 1000 UNITS PO DAILY Coenzyme Q10 (Ubidecarenone) (Coq-10) 100 Mg Cap 100 MG PO DAILY Levothyroxine (Synthroid) 125 Mcg Tab 125 MCG PO DAILY Thyroid #30 Ref 0 TAB Multiple Vitamins W/ Minerals (Centrum) 1 Tab 1 TAB PO DAILY Nutritional Supplement Ref 0 TAB Prednisone (Prednisone) 20 Mg Tab 20 MG PO BID COPD #30 Ref 0 TAB Rosuvastatin (Crestor) 5 Mg Tab 5 MG PO DAILY Cholesterol Management #30 Ref 0 TAB Tamsulosin (Tamsulosin) 0.4 Mg Cap 0.4 MG PO HS Manage Prostate Problems #30 Ref 0 CAP Theophylline ER 12 HR (Theophylline ER 12 HR) 200 Mg Tab 200 MG PO BID #60 Ref 0 TAB Tiotropium-Olodaterol Inh (Stiolto Respimat Inh) 2.5-2.5 Mcg/Act Aero 2 PUFF INH DAILY COPD #1 Ref 0 INHALER Kim Zazueta MD January 08, 2017 14:31
--- NOTE | 2017-01-08 14:31 | HHI.DCPOC ---
Discharge Care Plan Diagnosis: (1) COPD with exacerbation (2) Acute respiratory failure with hypoxia and hypercapnia (3) Tachycardia (4) End stage COPD Goals to Promote Your Health * To prevent worsening of your condition and complications * To maintain your health at the optimal level Directions to Meet Your Goals Take your medications as prescribed Follow your dietary instruction Follow activity as directed Keep your appointments as scheduled Take your immunizations and boosters as scheduled If your symptoms worsen call your PCP, if no PCP go to Urgent Care Center or Emergency Room Smoking is Dangerous to Your Health. Avoid second hand smoke Call the 24-hour hour crisis hotline for domestic abuse at Kim Zazueta MD January 08, 2017 14:30
[2017-01-08] MEDS: RESP: IPRATROPIUM 0.5 MG/2.5 ML NEB NEB PRN (15:06)
== END 2017-01-08 17:47 | disposition hospice, home (50) | DRG 189 ==
LOC: NEPE 18:18 → NEDA 20:19 → HCIS 22:02
PROVIDERS: ADMIT Family Medicine; ATTEND Family Medicine
PROC: 5A09457 Assistance with Respiratory Ventilation, 24-96 Consecutive Hours, Continuous Positive Airway Pressure (ICD-10-PCS; principal; 2017-01-06)
DX: J96.21 Acute and chronic respiratory failure with hypoxia (principal); E87.2 Acidosis; E46 Unspecified protein-calorie malnutrition; I47.1 Supraventricular tachycardia; I11.0 Hypertensive heart disease with heart failure; J44.1 Chronic obstructive pulmonary disease with (acute) exacerbation; I50.32 Chronic diastolic (congestive) heart failure; D72.829 Elevated white blood cell count, unspecified; E11.9 Type 2 diabetes mellitus without complications; I50.1 Left ventricular failure, unspecified; Z68.1 Body mass index [BMI] 19.9 or less, adult; J96.22 Acute and chronic respiratory failure with hypercapnia; R74.8 Abnormal levels of other serum enzymes; E87.6 Hypokalemia; E83.51 Hypocalcemia; E83.42 Hypomagnesemia; I25.2 Old myocardial infarction; I25.5 Ischemic cardiomyopathy; E78.5 Hyperlipidemia, unspecified; E03.9 Hypothyroidism, unspecified; G47.33 Obstructive sleep apnea (adult) (pediatric); Z99.81 Dependence on supplemental oxygen; H91.90 Unspecified hearing loss, unspecified ear; G47.00 Insomnia, unspecified; I25.10 Atherosclerotic heart disease of native coronary artery without angina pectoris; H35.30 Unspecified macular degeneration; M17.9 Osteoarthritis of knee, unspecified; K59.00 Constipation, unspecified; S50.312A Abrasion of left elbow, initial encounter; S80.212A Abrasion, left knee, initial encounter; S40.212A Abrasion of left shoulder, initial encounter; S00.81XA Abrasion of other part of head, initial encounter; W18.30XA Fall on same level, unspecified, initial encounter; R45.1 Restlessness and agitation; F32.9 Major depressive disorder, single episode, unspecified; F41.0 Panic disorder [episodic paroxysmal anxiety]; Z51.5 Encounter for palliative care; Z66 Do not resuscitate; Z87.891 Personal history of nicotine dependence; Z91.81 History of falling; Z95.1 Presence of aortocoronary bypass graft; Z95.5 Presence of coronary angioplasty implant and graft
CPT/HCPCS: 36600; 70450; 71010; 73030; 73080; 73502; 73564; 80048; 80053; 80198; 82550; 82805; 83735; 83880; 84155; 84443; 84484; 85025; 85027; 85610; 85730; 93005; 93306; 94002; 94003; 94640; 94664; 96374; 96375; J0171; J0461; J1644; J1956; J2060; J2270; J2920; J3475; J3480; J7614; J7644